=== PATIENT | female | born 1930 | race Caucasian/White ===

== ENCOUNTER 2018-11-16 07:48 | Inpatient (IN) | payer MEDICARE ==
[2018-11-16] MEDS ORDERED: methylPREDNISolone Sod Succ/PF 125 MG/2 ML VIAL ONE (08:24)
[2018-11-16 08:39] LABS: #Eosinphils 0.1 thou/uL (0.0-0.7); #Lymphocytes 0.7 thou/uL (1.20-3.40); #Monocytes 0.9 thou/uL (0.11-0.59); #Neutrophils 8.5 thou/uL (1.40-6.50); %Basophils 0.1 % (0.0-1.0); %Eosinophils 0.7 % (0.0-10.0); %Lymphocytes 7.2 % (21.0-51.0); %Neutrophils 83.1 % (42.0-75.0); Hemoglobin 16.5 g/dL (12.0-16.0); Mean Corpuscular HGB CONC 32.1 g/dL (32.0-36.0); Mean Corpuscular Hemoglobin 30.1 pg (27.0-31.0); Mean Corpuscular Volume 93.6 fL (78.0-98.0); Mean Platelet Volume 7.2 fL (7.4-10.4); Platelet Count 291 thou/uL (130-400); RBC Distribution Width 13.5 % (11.5-14.5); Red Blood Cell (RBC) Count 5.49 mill/uL (4.20-5.40); White Blood Cell (WBC) Count 10.3 thou/uL (4.8-10.8)
[2018-11-16 08:47] LABS: ALT (SGPT) 10 U/L (8-55); AST (SGOT) 18 U/L (5-34); Alkaline Phosphatase 89 U/L (40-150); Anion Gap 14 mmol/L (10-20); BUN (Urea Nitrogen) 22 mg/dL (9.8-20.1); Bilirubin, Total 0.6 mg/dL (0.2-1.2); Calc. Creatinine Clearance 0 mL/min (70-130); Calcium 11.7 mg/dL (7.8-10.44); Carbon Dioxide 26 mmol/L (23-31); Chloride 102 mmol/L (98-107); Estimated GFR-MDRD 36; Globulin 2.8 g/dL (2.4-3.5); Glucose 105 mg/dL (83-110); Potassium 3.9 mmol/L (3.5-5.1); Protein, Total 6.8 g/dL (6.0-8.3); Sodium 138 mmol/L (136-145)
[2018-11-16 09:13] LABS: CKMB 3.7 ng/mL (0-6.6)
--- NOTE | 2018-11-16 09:25 | CT ---
EXAM: CTA of the chest HISTORY: Shortness of breath COMPARISON: CT abdomen/pelvis 11/10/2018 TECHNIQUE: Multiple contiguous axial images were obtained a CTA of the chest with contrast per pulmon dot embolism protocol. 3-D oblique MIP reformats and direct coronal reformats were performed. FINDINGS: HEART: Normal in size without focal cardiac abnormality. PULMONARY ARTERIES: Normal in caliber without filling defects to suggest pulmonary emboli. MEDIASTINUM: There are calcified hilar and mediastinal lymph nodes. There is soft tissue density thro ughout the mediastinum which likely represents enlarged lymph nodes in the hilar regions and mediastinum. The lymph nodes are confluent in the subcarinal location LUNGS: No focal infiltrates or masses. PLEURAL SPACE: Moderate right small left pleural effusion. Right basilar atelectasis. CHEST WALL SOFT TISSUES: Unremarkable VISUALIZED OSSEOUS STRUCTURES: Degenerative changes in the spine. VISUALIZED SUBDIAPHRAGMATIC STRUCTURES: 4.0 cm cyst in the liver. Enlarged retroperitoneal lymph node s. IMPRESSION: 1. No evidence of pulmonary thromboembolism 2. Multiple enlarged hilar and mediastinal lymph nodes. This is concerning for lymphoma. 3. Bilateral pleural effusions, right greater than left.
[2018-11-16] MEDS ORDERED: Iopamidol 370 76% 50 ML VIAL FS ONE (11:00)
[2018-11-16 12:02] LABS: Troponin I 0.011 ng/mL (< 0.028)
[2018-11-16 14:25] LABS: Troponin I 0.018 ng/mL (< 0.028)
[2018-11-16] MEDS ORDERED: Ondansetron ODT 4 MG TAB SL PRN (14:26)
[2018-11-16] MEDS ORDERED: Ondansetron PF 4 MG/2 ML Vial IVP PRN (14:26)
[2018-11-16] MEDS ORDERED: Lidocaine 1% (PF) 30 ML VIAL ONE (16:25)
--- NOTE | 2018-11-16 16:46 | HP ---
CHIEF COMPLAINT: Shortness of breath and nonproductive cough. HISTORY OF PRESENT ILLNESS: The patient is an 88-year-old female, who was recently diagnosed with lymphoma by Dr. Valentine. Apparently, she went to his office yesterday. She was found to have hypercalcemia and was treated with IV fluids and Zometa, but her shortness of breath got worse and she decided to come to the emergency room for further evaluation and management. She was found to have bilateral pleural effusion and decision was made about hospitalization. Her cough is nonproductive. This is going on for approximately 2 to 3 weeks. She is short of breath. She has wheezing, though symptoms worse on exertion. She denied any fever or chills. She denied any nausea or vomiting. PAST MEDICAL HISTORY: Positive for, 1. Hypertension. 2. Lymphoma. PAST SURGICAL HISTORY: 1. Oral surgery. 2. Skin surgery. ALLERGIES: NONE. CURRENT MEDICATIONS: Amlodipine. FAMILY HISTORY: Father had some form of dementia and he was 85 when he passed and mother was 87. She did not have any significant health issues. SOCIAL HISTORY: She denies any alcohol intake, cigarette smoking, or use of any illicit drugs. REVIEW OF SYSTEMS: All 14 systems were reviewed and except for those symptoms which are mentioned in HPI rest is negative. PHYSICAL EXAMINATION: VITAL SIGNS: Blood pressure is 181/83, pulse is 92, temperature is 97.5, respirations 20, and O2 saturation is 93% on 3 L by nasal cannula. HEENT: Head is atraumatic and normocephalic. Eyes are PERRLA. Sclerae are nonicteric. Oral mucosa is somewhat dry. Conjunctivae are palish. NECK: Supple. LUNGS: Breath sounds significantly diminished at both bases with significant dullness, especially in the right base on percussion. HEART: S1, S2 normal. No S3. No S4. ABDOMEN: Soft, mildly distended, nontender. EXTREMITIES: No clubbing, cyanosis, or edema. NEUROLOGIC: She is alert and oriented x4. There are no any motor or sensory deficits present. Cranial nerves are intact. LABORATORY DATA: Labs showed white count of 10.3, hemoglobin 16.5, hematocrit 51.4, platelet count 291,000. Normal electrolytes. BUN of 22, creatinine 1.39, calcium 11.7. BNP is 193.4. Troponin I 0.011 and 0.018. Liver function tests within normal limits. EKG showed sinus tachycardia with a ventricular rate of 107, no ischemic changes. CT angiogram of the chest showed no evidence of PE. Multiple enlarged hilar and mediastinal lymph nodes. Bilateral pleural effusion, right greater than left. IMPRESSION: 1. Respiratory failure. The patient had pulse oximetry in the 80s when she presented to the emergency room on room air. She was placed on O2 3 L and she is now in the mid 90s on her pulse oximetry. Obviously, this is related to her bilateral pleural effusion, most likely related to her malignancy. 2. Hypercalcemia that is most likely related to her lymphoma. 3. Hypertension, uncontrolled. 4. Dehydration. 5. Renal insufficiency most likely prerenal secondary to hypercalcemia. PLAN: Full admission to tele. Condition is fair. Activity is bedrest and bathroom privileges. IV normal saline at 125 mL/hour. Consultation with Dr. Valentine, oncologist. Consultation with Dr. Caruso, urology physician assistant. Hydralazine p.r.n. for systolic blood pressure more than 160. Continue amlodipine. CBC and BMP in the morning with calcium level. O2 to continue 3 L by nasal cannula. DuoNeb p.r.n. every 4 hours as needed and DVT prophylaxis with SCDs and heparin. Job ID: [id number]
--- NOTE | 2018-11-16 17:02 | RAD ---
Chest one view HISTORY: Thoracentesis. FINDINGS: Cardiac silhouette is magnified, enlarged, and partially obscured by left pleural fluid. Ca lcification in the aorta. Minimal leftward shift of cardiac silhouette. Trachea remains midline. Right pleural fluid has decreased since the most recent exams. Right lung is partially collapsed. Ple ural line seen at the apex and the lower chest. IMPRESSION: Moderate right pneumothorax. Cardiomegaly and left pleural fluid appears stable. Findings were called to Dr. Caruso at 1655 hours. Code CR.
[2018-11-16] MEDS: Sodium Chloride 0.9% 1,000 ML IV SCH (17:24)
--- NOTE | 2018-11-16 17:29 | CON ---
DATE OF CONSULTATION: 11/16/2018 HISTORY OF PRESENT ILLNESS: Shalini Lowery is an 88-year-old female, who was brought to the hospital with shortness of breath several days duration. She has had a cough and difficulty breathing. She has lost some weight. Denies any chest pain, chills, or sweats. She has smoked. A recent diagnosis of lymphoma was made after she had extensive CAT scan imaging done. She has a local oncologist, but is unclear whether any treatment was initiated. She denies any prior history of TB, pneumonia, or bronchial asthma. In fact, she has been relatively healthy for most of her life. 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 PAST MEDICAL HISTORY: 1. Hypertension. 2. Recent diagnosis of lymphoma. PAST SURGICAL HISTORY: Otherwise, none. CHRONIC MEDICATION: Amlodipine 5. ALLERGIES: NONE. FAMILY HISTORY: Noncontributory. REVIEW OF SYSTEMS: 10-point negative. PHYSICAL EXAMINATION: GENERAL: Mild distress. VITAL SIGNS: Saturations are 93% on 3 L, temperature 97, pulse 92, . CHEST: She has dullness with decreased breath sounds . CARDIAC: Normal S1 and S2. No gallops. ABDOMEN: No masses. LABORATORY DATA: Creatinine is 1.39. BNP is 193, normal. White count is 10,000. IMPRESSION: 1. Bilateral pleural effusions, right massive. 2. Recent diagnosis of lymphoma, I made following imaging studies and blood work done. 3. Multiple enlarged hilar/mediastinal lymph nodes; bilateral pleural effusion, right greater than left. PLAN: Diagnostic thoracentesis to be done. Further treatment plan as per the oncologist. Consultation note, 70 minutes, 50% direct care exclusive of the thoracentesis. Job ID: [id number]
[2018-11-16 17:36] LABS: Pleural Fluid, Protein 2.9 g/dL
[2018-11-16] MEDS ORDERED: Amlodipine 5 MG TAB PO SCH (17:45)
[2018-11-16 19:51] LABS: BF Color Yellow; Body Fluid Source Thoracentesis Fluid; Clarity Cloudy/Turbid (Clear); Tube # 2; WBC/NonHematic-Auto 968 /cumm
[2018-11-16 19:52] LABS: BF RBC Count - Manual 850 /cumm
[2018-11-16 20:19] LABS: BF Segmented Neutrophils 5 %; Cell Count Non Hematic 21 %; Eosinophils 7 %; Lymphocytes 67 %
[2018-11-16] MEDS: Heparin 5,000 UNITS/ML VIAL SC SCH (22:30)
[2018-11-17] MEDS: hydrALAZINE 20 MG/ML VIAL SLOW IVP PRN (05:01)
[2018-11-17] MEDS: Sodium Chloride 0.9% 1,000 ML IV SCH ×4 (05:02→20:24)
[2018-11-17 06:00] LABS: #Lymphocytes 0.7 thou/uL (1.20-3.40); #Monocytes 1.7 thou/uL (0.11-0.59); #Neutrophils 15.7 thou/uL (1.40-6.50); %Eosinophils 0.2 % (0.0-10.0); %Lymphocytes 3.9 % (21.0-51.0); %Monocytes 9.1 % (0.0-10.0); %Neutrophils 86.8 % (42.0-75.0); Hemoglobin 14.5 g/dL (12.0-16.0); Mean Corpuscular HGB CONC 33.5 g/dL (32.0-36.0); Mean Corpuscular Hemoglobin 31.5 pg (27.0-31.0); Mean Platelet Volume 6.9 fL (7.4-10.4); Platelet Count 253 thou/uL (130-400); RBC Distribution Width 13.6 % (11.5-14.5); White Blood Cell (WBC) Count 18.1 thou/uL (4.8-10.8)
[2018-11-17 06:26] LABS: Anion Gap 10 mmol/L (10-20); BUN (Urea Nitrogen) 21 mg/dL (9.8-20.1); Calc. Creatinine Clearance 32 mL/min (70-130); Calcium 9.8 mg/dL (7.8-10.44); Carbon Dioxide 26 mmol/L (23-31); Chloride 106 mmol/L (98-107); Estimated GFR-MDRD 44; Glucose 80 mg/dL (83-110); Potassium 4.3 mmol/L (3.5-5.1); Sodium 138 mmol/L (136-145)
--- NOTE | 2018-11-17 07:51 | RAD ---
EXAM: Single view of the chest HISTORY: Status post thoracocentesis COMPARISON: 11/16/2018 FINDINGS: Single view of the chest shows an enlarged but stable cardiomediastinal silhouette. Athero sclerotic calcifications are seen in the aorta. There is a small right apical pneumothorax which is slightly decreased in size. There is reaccumulation of a small amount of right pleural fluid. The bon es are unremarkable. IMPRESSION: 1. Stable to slightly smaller right apical pneumothorax. 2. Reaccumulation of a small amount of right pleural effusion.
--- NOTE | 2018-11-17 08:59 | OP ---
DATE OF PROCEDURE: 11/16/2018 PROCEDURES PERFORMED: Thoracentesis. INDICATION FOR PROCEDURE: Pleural effusion. DESCRIPTION OF PROCEDURE: After informed consent, the right posterior thorax was cleaned with chlorhexidine and 1% Xylocaine was infiltrated in the right in the ninth intercostal space, midscapular line. To my surprise, there was no fluid obtained. A CAT scan showed a very large pleural effusion with extensive dullness. Thereafter, the tenth intercostal space in the midscapular line was infiltrated with lidocaine, but once again to my surprise, no fluid was obtained. 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 H1 catheter was inserted. Thereafter, a total of about 1200 mL of chylous fluid was removed without any difficulty. The patient otherwise tolerated the procedure well. She will be sent for appropriate studies including cytology and culture. Job ID: [id number]
--- NOTE | 2018-11-17 09:17 | PRG ---
DATE OF SERVICE: 11/17/2018 SUBJECTIVE: This morning, she is awake, alert, and responsive. She is complaining of some congestion in the chest. OBJECTIVE: VITAL SIGNS: Blood pressure 150/71, sats 96% on 2 L, pulse 18, temperature 98, and pulse 88. Chest x-ray shows small right pleural effusion. Small apical pneumothorax. CHEST: Decreased breath sounds bilaterally without any wheezing. CARDIAC: Normal S1 and S2. No gallop. ABDOMEN: No masses. LABORATORY DATA: White count 18,000. Creatinine is 1.7, improved. BNP 133. Bilateral pleural effusion, small apical pneumothorax, chylo thorax. IMPRESSION: Lymphoma, pleural effusion, underlying baseline chronic obstructive pulmonary disease. I am going to add Dulera neb treatments to her present regime. Continue supportive care, PT. Echo being ordered. Await input from Oncology. Job ID: [id number] MTDD
[2018-11-17] MEDS: Amlodipine 5 MG TAB PO SCH (10:06)
[2018-11-17] MEDS: Heparin 5,000 UNITS/ML VIAL SC SCH ×3 (11:10→20:24)
--- NOTE | 2018-11-17 12:38 | CON ---
DATE OF CONSULTATION: REASON FOR CONSULT: Lymphoma. HISTORY OF PRESENT ILLNESS: Ms. Lowery is a pleasant 88-year-old female with a history of COPD, tobacco abuse, hypertension, and polycythemia, who had a CT scan a week ago showed massive abdominal adenopathy in the periaortic and aortocaval regions consistent with non-Hodgkin's lymphoma. She also had a moderate bilateral pleural effusions. She was seen by Dr. Valentine on October 15 and was set up for a lymph node biopsy. On the , she began to have shortness of breath and a nonproductive cough, so came to the emergency room for evaluation. She had a massive right pleural effusion and had a therapeutic thoracentesis with 1200 mL of fluid removed, that has been sent for cytology. She is feeling much better with minimal shortness of breath. She does continue to have fatigue and has lost 20 pounds in the last eight months. No night sweats. When the patient was seen in the clinic on Wednesday, she did receive 4 mg of Zometa with 2 L of fluid for her hypercalcemia of 11.2. PAST MEDICAL HISTORY: 1. Newly diagnosed non-Hodgkin lymphoma. 2. COPD. 3. Hypertension. PAST SURGICAL HISTORY: Oral surgery. ALLERGIES: NONE. HOME MEDICATIONS: Amlodipine 5 mg daily. FAMILY HISTORY: Noncontributory. SOCIAL HISTORY: , has 2 children. Current everyday smoker with 73 pack-year history. REVIEW OF SYSTEMS: A 10-point review of systems is negative except for noted in HPI. PHYSICAL EXAMINATION: VITAL SIGNS: Temperature is 98.8, pulse is 89, respiratory rate is 18, BP is 152/68, and she is 94% on 3 L. GENERAL: This is a well-developed, well-nourished female, in no acute distress. HEENT: Normocephalic and atraumatic. Pupils are equal and reactive to light. NECK: Supple. CV: Regular rate and rhythm. LUNGS: Clear to auscultation. ABDOMEN: Soft and nontender. Bowel sounds are positive. She has a central abdominal mass. EXTREMITIES: No clubbing, cyanosis, or edema. SKIN: No rash. HEMATOLOGIC: No petechiae or purpura. LYMPH: She has shotty inguinal lymph node. NEUROLOGIC: Nonfocal. PSYCH: She is alert, oriented, and appropriate. PERTINENT LABS AND X-RAYS: Current WBCs are 18.1, hemoglobin 14.5, hematocrit 43.2, platelet count 253,000, 87% neutrophils, and 4% lymphocytes. Sodium is 138, potassium is 4.3, chloride is 106, CO2 is 26, BUN is 21, creatinine is 1.17, calcium is 9.8, bilirubin is 0.6, AST is 18, ALT is 10, and alkaline phosphatase is 89. Troponin is negative and BNP is 193. Serum total protein 6.9, albumin 4.0, and globulin 2.8. ASSESSMENT: 1. Newly diagnosed lymphoma. 2. Bilateral pleural effusion, status post right thoracentesis. 3. Hypercalcemia, resolved. DISCUSSION: The patient is scheduled for an inguinal lymph node biopsy tomorrow with Dr. Vasquez. Her pleural fluid has been sent for cytology. Further recommendations will be based on pathology results. If she improves well enough to go home, she can follow up in the outpatient setting for treatment recommendations. Case has been discussed with Dr. Valentine, he will follow and see the patient tomorrow. Thank you for the consult. Job ID: [id number]
--- NOTE | 2018-11-17 18:13 | PDOC.HOSPP ---
- Subjective Subjective: Doing ok. No complaints. Has some questions about the biopsy and the timing of the results. - Objective Vital Signs & Weight: Vital Signs (12 hours) Temp Pulse Resp BP BP Pulse Ox 11/17/18 15:34 97.8 F 100 16 146/73 H 92 L 11/17/18 14:18 94 16 92 L 11/17/18 11:52 98.2 F 89 18 152/68 H 94 L 11/17/18 10:24 95 11/17/18 10:22 98 16 94 L 11/17/18 10:06 88 150/71 H 11/17/18 08:00 96 11/17/18 07:40 98 F 88 18 150/71 H 96 Weight Weight 133 lb 4.8 oz I&O: 11/16/18 11/17/18 11/18/18 06:59 06:59 06:59 Output Total 600 Balance -600 Result Diagrams: 11/17/18 05:46 11/17/18 05:46 ROS - Review of Systems All systems: All other ROS were reviewed and found negative. - Medication Medications: Active Medications Generic Name Dose Route Start Last Admin Trade Name Freq PRN Reason Stop Dose Admin Albuterol/Ipratropium 3 ml 11/17/18 10:30 11/17/18 14:18 Duoneb NEB 3 ml [id number] POLY Administration Amlodipine Besylate 10 mg 11/17/18 09:00 11/17/18 10:06 Norvasc PO 10 mg DAILY POLY Administration Heparin Sodium (Porcine) 5,000 units 11/16/18 21:00 11/17/18 16:16 Heparin SC 5,000 units TID POLY Administration Hydralazine HCl 10 mg 11/16/18 17:23 11/17/18 05:01 Apresoline SLOW IVP 10 mg Q4H PRN Administration Hypertension Sodium Chloride 1,000 mls @ 50 mls/hr 11/17/18 08:57 11/17/18 10:12 Normal Saline 0.9% IV Not Given .Q20H POLY - Exam NAD, awake alert Neck: supple, symmetric, no JVD, no Thyromegaly, no lymphadenopathy, no carotid bruit Heart: RRR, no murmur, no gallops, no rubs, normal peripheral pulses Respiratory: CTAB, no wheezes, no rales, no ronchi, normal chest expansion, no tachypnea, normal percussion Gastrointestinal: soft, non-tender, non-distended, normal bowel sounds, no palpable masses, no hepatomegaly, no splenomegaly, no bruit Extremities: no cyanosis, no clubbing, no edema Skin: normal turgor, no lesions, no rashes Hosp A/P (1) Acute respiratory failure with hypoxia Code(s): J96.01 - ACUTE RESPIRATORY FAILURE WITH HYPOXIA Status: Acute (2) Pleural effusion Code(s): J90 - PLEURAL EFFUSION, NOT ELSEWHERE CLASSIFIED Status: Acute (3) Lymphoma Status: Acute (4) Hypercalcemia of malignancy Code(s): E83.52 - HYPERCALCEMIA Status: Acute - Plan Hypoxia resolved. S/P thoracentesis. Will get LN biopsy tomorrow to confirm the diagnosis and to stage the cancer. Will not need to stay in the hospital after bx. She thinks she may need to consider short stay somewhere prior to going home. hypercalcemia resolved.
[2018-11-17] MEDS: Mometasone/Formoterol 120 PUFF INHALER INH SCH (20:14)
--- NOTE | 2018-11-17 20:44 | CON ---
DATE OF CONSULTATION: HISTORY OF PRESENT ILLNESS: Shalini Lowery is an 88-year-old female admitted to the hospital on 11/16/2018 for complaints of malaise, weight loss of 20 to 30 pounds, dyspnea and nonproductive cough. She is noted to have bilateral pleural effusions and CTA performed revealed mediastinal and abdominal lymphadenopathy. Dr. Valentine has seen her and asked me to evaluate her for lymph node biopsy. Unfortunately, she does not have palpable cervical, axillary, or groin nodes, but does have firmness in her upper abdomen and bulky intraabdominal lymphadenopathy. Echocardiogram has been ordered. Plan is for laparoscopic lymph node biopsy. PAST MEDICAL HISTORY: Hypertension and lymphadenopathy. PAST SURGICAL HISTORY: None significant except for dental surgery. ALLERGIES: NONE. MEDICATIONS: Amlodipine. FAMILY HISTORY: Dementia. SOCIAL HISTORY: Alcohol use, none. Tobacco use, up until a few days ago. REVIEW OF SYSTEMS: Ten-point noncontributory. No chest pain. The patient has suffered weight loss and anorexia. She has had a thoracentesis in this hospitalization. Therapeutic thoracentesis 1200 mL. Echo pending. She has been noted to have hypercalcemia, is being treated for that. PHYSICAL EXAMINATION: VITAL SIGNS: Weight 133 pounds, 22 BMI, height 5 feet 4 inches. Temperature 98.2 degrees, pulse 89, and blood pressure 152/68. HEAD, EARS, EYES, NOSE, AND THROAT: Unremarkable. LUNGS: Clear to auscultation. CARDIAC: Rhythm without murmur or gallop. ABDOMEN: Soft. Firmness in her upper abdomen. EXTREMITIES: Unremarkable. Mild edema ankles. Palpable pulses radial. No lymphadenopathy at neck or groins. LABORATORY DATA: White count 18, hemoglobin 14. Sodium 138, BUN 21, creatinine 1.17, and glucose 44. ASSESSMENT AND PLAN: 1. Extensive lymphadenopathy, mediastinal, intraabdominal. No peripheral load noted in biopsy on the surface. We would recommend general anesthetic laparoscopic biopsy. Risks of infection, bleeding, reoperation, laparotomy discussed. She consents. 2. Tobacco abuse history. Job ID: [id number]
[2018-11-17 22:42] LABS: Lactic Acid 2.4 mmol/L (0.5-2.2)
[2018-11-17 22:44] LABS: Albumin 3.3 g/dL (3.4-4.8); Anion Gap 12 mmol/L (10-20); BUN (Urea Nitrogen) 21 mg/dL (9.8-20.1); Calc. Creatinine Clearance 32 mL/min (70-130); Calcium 9.6 mg/dL (7.8-10.44); Carbon Dioxide 25 mmol/L (23-31); Chloride 105 mmol/L (98-107); Estimated GFR-MDRD 44; Glucose 113 mg/dL (83-110); Magnesium 1.7 mg/dL (1.6-2.6); Potassium 4.1 mmol/L (3.5-5.1); Sodium 138 mmol/L (136-145)
[2018-11-18 05:26] LABS: ALT (SGPT) 9 U/L (8-55); AST (SGOT) 15 U/L (5-34); Albumin 3.3 g/dL (3.4-4.8); Alkaline Phosphatase 69 U/L (40-150); Anion Gap 12 mmol/L (10-20); BUN (Urea Nitrogen) 20 mg/dL (9.8-20.1); Bilirubin, Total 0.5 mg/dL (0.2-1.2); Calc. Creatinine Clearance 35 mL/min (70-130); Calcium 9.4 mg/dL (7.8-10.44); Carbon Dioxide 25 mmol/L (23-31); Chloride 107 mmol/L (98-107); Estimated GFR-MDRD 48; Globulin 2.2 g/dL (2.4-3.5); Glucose 94 mg/dL (83-110); Protein, Total 5.5 g/dL (6.0-8.3); Sodium 140 mmol/L (136-145)
[2018-11-18] MEDS: Sodium Chloride 0.9% 1,000 ML IV SCH ×2 (06:19→23:52)
[2018-11-18] MEDS: Mometasone/Formoterol 120 PUFF INHALER INH SCH ×2 (06:33→20:03)
[2018-11-18] MEDS: Heparin 5,000 UNITS/ML VIAL SC SCH ×2 (08:40→15:40)
[2018-11-18] MEDS: Amlodipine 5 MG TAB PO SCH (08:57)
--- NOTE | 2018-11-18 09:29 | PDOC.HOSPP ---
- Subjective Subjective: 88 y/o female with recent diagnosis of lymphoma associated with hypercalcemia treated with IVF and zommeta admitted due to worsening SOB and cough. Evaluation showed bilateral pleural effusion R>>L s/p thoracentesis which showed chylous exufdate. Also found to have mediastinal and abnormal lymphadenopathy. Patient is for Laparoscopy abdominal lymph node biopsy. SOB is better. No new problem - Objective Vital Signs & Weight: Vital Signs (12 hours) Temp Pulse Resp BP BP Pulse Ox 11/18/18 08:57 99 148/71 H 11/18/18 07:43 97.5 F L 99 18 148/71 H 92 L 11/18/18 06:37 95 11/18/18 06:36 94 16 95 11/18/18 06:33 94 18 95 11/18/18 04:00 97.8 F 98 20 143/77 H 94 L 11/18/18 01:32 93 L 11/18/18 00:00 97.4 F L 94 22 H 145/79 H 93 L Weight Weight 133 lb 4.8 oz I&O: 11/17/18 11/18/18 11/19/18 06:59 06:59 06:59 Intake Total 1985 Output Total 600 1200 Balance -600 785 Result Diagrams: 11/17/18 05:46 11/18/18 04:33 ROS - Review of Systems All systems: All other ROS were reviewed and found negative. - Medication Medications: Active Medications Generic Name Dose Route Start Last Admin Trade Name Freq PRN Reason Stop Dose Admin Albuterol/Ipratropium 3 ml 11/17/18 10:30 11/18/18 06:36 Duoneb NEB 3 ml [id number] POLY Administration Amlodipine Besylate 10 mg 11/17/18 09:00 11/18/18 08:57 Norvasc PO 10 mg DAILY POLY Administration Heparin Sodium (Porcine) 5,000 units 11/16/18 21:00 11/18/18 08:40 Heparin SC Not Given TID POLY Hydralazine HCl 10 mg 11/16/18 17:23 11/17/18 05:01 Apresoline SLOW IVP 10 mg Q4H PRN Administration Hypertension Sodium Chloride 1,000 mls @ 50 mls/hr 11/17/18 08:57 11/18/18 06:19 Normal Saline 0.9% IV Not Given .Q20H POLY Mometasone Furoate/Formoterol Fumar 2 puff 11/17/18 18:30 11/18/18 06:33 Dulera 200 Mcg/5 Mcg Inhaler INH 2 puff BID-RT POLY Administration - Exam NAD, awake alert Eye: PERRL, anicteric sclera ENT: normocephalic atraumatic, moist mucosa Neck: supple, symmetric, no JVD Heart: RRR Respiratory: no rales (Air entry is decreased at the bases but no respiratory distress) Gastrointestinal: soft, non-tender, non-distended, normal bowel sounds Extremities: no cyanosis, no clubbing, no edema Neurological: CN's grossly intact, normal sensation to touch Musculoskeletal: normal tone, normal strength, no muscle wasting Psychiatric: normal affect, normal behavior, A&O x 3 Hosp A/P (1) Acute respiratory failure with hypoxia Code(s): J96.01 - ACUTE RESPIRATORY FAILURE WITH HYPOXIA Status: Acute (2) Lymphadenopathy Code(s): R59.1 - GENERALIZED ENLARGED LYMPH NODES Status: Acute (3) HTN (hypertension) Code(s): I10 - ESSENTIAL (PRIMARY) HYPERTENSION Status: Acute (4) Hypercalcemia of malignancy Code(s): E83.52 - HYPERCALCEMIA Status: Acute (5) Lymphoma Status: Acute (6) Pleural effusion Code(s): J90 - PLEURAL EFFUSION, NOT ELSEWHERE CLASSIFIED Status: Acute - Plan Continue supportive care. Await Lymph node biopsy Monitor electrolytes and replete as needed. Hem/Onc following.
--- NOTE | 2018-11-18 10:07 | PRG ---
DATE OF SERVICE: 11/18/2018 SUBJECTIVE: This morning, the patient is better, less short of breath. OBJECTIVE: VITAL SIGNS: Saturations are 92% on 2 L, blood pressure 148/71, temperature 97, respirations 18. CHEST: Decreased breath sounds in the right lung. CARDIAC: Normal S1, S2. No gallops. ABDOMEN: soft _ evidence of mass. ASSESSMENT: 1. Right pleural effusion. 2. 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 3. Extensive adenopathy. 4. Inguinal node biopsy. PLAN: Pulmonary dexter continue supportive care. Cough has improved, probably secondary to pleural effusion and adenopathy. Await cytology of the pleural effusion. Job ID: [id number] [facility]
[2018-11-18] MEDS ORDERED: Bupivacaine HCl 0.5%/Epinephrine 1:200,000/PF 30 ml Vial ONE (12:35)
[2018-11-18] MEDS ORDERED: Fentanyl 100 MCG/2 ML VIAL ONE (12:48)
[2018-11-18] MEDS ORDERED: Famotidine/PF 20 mg/2ml Vial ONE (12:48)
[2018-11-18] MEDS ORDERED: ceFAZolin Sodium (SDC) 2 GM/100 ML BAG ONE (12:51)
--- NOTE | 2018-11-18 13:30 | PDOC.MOPN ---
Interval History: Pt feeling much better today after thoracentesis yesterday. Still feels SOB but improved. No other complaints. - Vital Signs Vital Signs: Vital Signs (12 hours) Temp Pulse Resp BP BP Pulse Ox 11/18/18 11:30 97.8 F 106 H 16 144/71 H 93 L 11/18/18 10:05 84 18 93 L 11/18/18 08:57 99 148/71 H 11/18/18 08:49 92 L 11/18/18 07:43 97.5 F L 99 18 148/71 H 92 L 11/18/18 06:37 95 11/18/18 06:36 94 16 95 11/18/18 06:33 94 18 95 11/18/18 04:00 97.8 F 98 20 143/77 H 94 L 11/18/18 01:32 93 L Weight Weight 133 lb 4.8 oz - Physical Exam General: Alert, Oriented x3, No acute distress HEENT: Atraumatic, PERRLA, EOMI, Mucous membr. moist/pink Lungs: Other (decreased BS in right mid-lower lung field; mild wheezing) Cardiovascular: Regular rate, Normal S1, Normal S2, No murmurs, Gallops, Rubs Abdomen: Normal bowel sounds, Soft, No tenderness, No hepatospenomegaly, No masses Extremities: No clubbing, No cyanosis, No edema, Normal pulses, No tenderness/ swelling Skin: No rashes, No breakdown, No significant lesion Neurological: Normal gait, Normal speech, Strength at 5/5 X4 ext, Normal tone, Sensation intact, Cranial nerves 3-12 NL, Reflexes 2+ Psych/Mental Status: Mental status NL, Mood NL - Labs Result Diagrams: 11/17/18 05:46 11/18/18 04:33 Lab results: Laboratory Results - last 24 hr 11/18/18 04:33: Sodium 140, Potassium 4.0, Chloride 107, Carbon Dioxide 25, Anion Gap 12, BUN 20, Creatinine 1.07, Estimated GFR (MDRD) 48, Glucose 94, Calcium 9.4, Total Bilirubin 0.5, AST 15, ALT 9, Alkaline Phosphatase 69, Serum Total Protein 5.5 L, Albumin 3.3 L, Globulin 2.2 L, Albumin/Globulin Ratio 1.5 11/17/18 22:18: Procalcitonin 0.07 11/17/18 22:18: Lactic Acid 2.4 H 11/17/18 22:18: Calcium 9.6 11/17/18 22:12: Sodium 138, Potassium 4.1, Chloride 105, Carbon Dioxide 25, Anion Gap 12, BUN 21 H, Creatinine 1.16 H, Estimated GFR (MDRD) 44, BUN/ Creatinine Ratio 18.10, Glucose 113 H, Calcium 9.6, Phosphorus 2.0 L, Magnesium 1.7, Albumin 3.3 L 11/16/18 16:45: Fluid Diff Path Review - Pathology Pathology: Pleural Fluid - CD10+ B-cells, 30% small to medium sized A/P - Problem (1) Non-Hodgkin lymphoma Current Visit: Yes Code(s): C85.90 - NON-HODGKIN LYMPHOMA, UNSPECIFIED, UNSPECIFIED SITE Status: Acute - Plan Plan: Pleural fluid positive for CD10+, CD20+ B-cells. Diffuse adenopathy pending biopsy today. Hypercalcemia 2/2 lymphoma, now resolved. LN biopsy today by Dr. Vasquez - f/u path monitor calcium levels pleural effusion mgmt as per Dr. Caruso physical therapy consult
[2018-11-18] MEDS ORDERED: Ondansetron HCl/PF 4 MG/2 ML Vial IVP PRN (13:42)
[2018-11-18] MEDS ORDERED: Acetaminophen 500 MG TAB PO PRN (13:56)
[2018-11-18] MEDS ORDERED: traMADol HCl 50 MG TAB PO PRN (13:56)
[2018-11-18] MEDS ORDERED: PROPOFOL 200 MG/20 ML VIAL ONE (14:04)
[2018-11-18] MEDS ORDERED: PHENYLEPHRINE-NS 100 MCG/ML 10 ML SYRINGE ONE (14:04)
[2018-11-18] MEDS ORDERED: PROVENTIL INHALER 6.7 G (200 INHALATIONS) ONE (14:04)
[2018-11-18] MEDS ORDERED: Ketorolac Tromethamine 30 MG/ML VIAL ONE (14:04)
[2018-11-18] MEDS ORDERED: Glycopyrrolate 0.2 MG/ML 5 ML SYRINGE ONE (14:04)
[2018-11-18] MEDS ORDERED: Ondansetron PF 4 MG/2 ML Vial ONE (14:04)
[2018-11-18] MEDS ORDERED: Rocuronium Bromide 10 MG/ML (10ML VIAL) ONE (14:04)
[2018-11-18] MEDS ORDERED: Lidocaine 1% PF 5 ML VIAL ONE (14:04)
[2018-11-18] MEDS ORDERED: SUGAMMADEX SODIUM 200 MG/2 ML VIAL ONE (14:04)
[2018-11-18] MEDS ORDERED: CEFAZOLIN 2 GM, IV Admixture Fee-Chemo 1 UNITS in Sodium Chloride 0.9% 100 ML IVPB SCH (16:00)
--- NOTE | 2018-11-18 19:50 | OP ---
DATE OF PROCEDURE: 11/18/2018 PREOPERATIVE DIAGNOSIS: Lymphadenopathy. POSTOPERATIVE DIAGNOSIS: Lymphadenopathy. PROCEDURE PERFORMED: Laparoscopic lymph node biopsy, retroperitoneal. ANESTHESIA: General, local, 0.5% Marcaine with epinephrine. FINDINGS: The patient has palpable abdominal lymphadenopathy on abdominal exam laparoscopically. She had bulky central retroperitoneal lymphadenopathy. A significant lymph node was removed. DESCRIPTION OF PROCEDURE: The patient was taken to the operating room, under general anesthesia, abdomen was prepared with ChloraPrep and draped in routine fashion. Left lateral, far lateral incision was made. Pneumoperitoneum to 15 mmHg was obtained with a Veress needle, replaced with a 5 port, video laparoscope was inserted. The balance of the ports placed under laparoscopic visualization. Left lateral midabdominal incision was made for an 11 mm port. Left lower quadrant lateral incision was made and a 5 port placed. The patient had bulky lymphadenopathy as the omentum and transverse colon reflected cephalad. There was bulky lymphadenopathy and small bowel mesentery. Of significant note, 4 cm in diameter was dissected free using the LigaSure for hemostasis, node recovered, placed in endobag, submitted to pathology fresh for lymph node protocol. The patient tolerated the procedure well. Good hemostasis was noted. Pneumoperitoneum was evacuated. All instruments were removed. All skin incisions were approximated with interrupted subdermal 4-0 Monocryl and [place] glue was applied. Job ID: [id number]
[2018-11-18] MEDS: Enoxaparin Sodium 40 MG/0.4 ML SYRINGE SC SCH (20:19)
[2018-11-19] MEDS: Mometasone/Formoterol 120 PUFF INHALER INH SCH ×2 (06:58→19:01)
--- NOTE | 2018-11-19 08:27 | RAD ---
CHEST 1 VIEW: Date: 11/19/18 INDICATION: Pleural effusions. COMPARISON: Prior exam dated 11/17/18. FINDINGS: There is cardiomegaly, pulmonary vascular congestion, and bilateral pleural effusions. No pneumothora x is evident. No acute osseous abnormality is noted. The right apical pneumothorax is unchanged. IMPRESSION: 1. Stable exam. 2. Stable small right apical pneumothorax. 3. Stable cardiomegaly, pulmonary vascular congestion, central edema pattern, and bilateral pleural effusions, suspicious for volume overload or CHF. POS: [facility]
[2018-11-19] MEDS: Polyethylene Glycol 3350 17 GM Packet PO SCH (08:38)
[2018-11-19] MEDS: Amlodipine 5 MG TAB PO SCH (08:38)
--- NOTE | 2018-11-19 12:31 | PRG ---
DATE OF SERVICE: 11/19/2018 SUBJECTIVE: This morning, she says she is somewhat better, less short of breath. X-ray still shows bilateral pleural effusion. Unfortunately, the right pleural effusion is reaccumulating, still has apical pneumothorax. OBJECTIVE: VITAL SIGNS: Saturations are 94%, pulse 70, respirations 18, and blood pressure . CHEST: Decreased breath sounds bilaterally. CARDIAC: Normal S1 and S2. No gallops. ABDOMEN: No mass. LABORATORY DATA: Pleural effusion cytology is positive for lymphoma. IMPRESSION: 1. Non-Hodgkin lymphoma. 2. Bilateral pleural effusion. 3. 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 PLAN: Disposition as per Oncology. More than likely, the pleural effusion is going to slowly reaccumulate, she may have dyspnea. At that time, consider putting a pleural catheter for drainage purposes. We will discuss and follow. Job ID: [id number]
--- NOTE | 2018-11-19 17:10 | PDOC.HOSPP ---
- Subjective Subjective: Ms. Lowery was seen today in follow-up of Lymphoma and malignant effusion. She does not have any new complaints today. She denies dyspnea, or abdominal pain. - Objective Vital Signs & Weight: Vital Signs (12 hours) Temp Pulse Pulse Pulse Resp BP BP 11/19/18 15:59 98.4 F 95 20 11/19/18 14:23 85 18 11/19/18 12:00 97.7 F 104 H 20 11/19/18 10:41 93 20 11/19/18 10:09 11/19/18 09:27 136/78 180/79 H 11/19/18 08:50 106 H 114 H 174/79 H 183/105 H 11/19/18 08:38 100 11/19/18 07:38 97.5 F L 100 20 11/19/18 07:02 11/19/18 07:01 80 18 11/19/18 06:58 80 16 BP Pulse Ox 11/19/18 15:59 139/61 89 L 11/19/18 14:23 91 L 11/19/18 12:00 132/70 90 L 11/19/18 10:41 92 L 11/19/18 10:09 148/72 H 11/19/18 09:27 11/19/18 08:50 11/19/18 08:38 92 L 11/19/18 07:38 129/75 92 L 11/19/18 07:02 94 L 11/19/18 07:01 94 L 11/19/18 06:58 94 L Weight Weight 133 lb 4.8 oz I&O: 11/18/18 11/19/18 11/20/18 06:59 06:59 06:59 Intake Total 1985 1265 Output Total 1200 300 Balance 785 965 Result Diagrams: 11/17/18 05:46 11/18/18 04:33 ROS - Review of Systems All systems: All other ROS were reviewed and found negative. - Medication Medications: Active Medications Generic Name Dose Route Start Last Admin Trade Name Freq PRN Reason Stop Dose Admin Albuterol/Ipratropium 3 ml 11/17/18 10:30 11/19/18 14:23 Duoneb NEB 3 ml [id number] POLY Administration Amlodipine Besylate 10 mg 11/17/18 09:00 11/19/18 08:38 Norvasc PO 10 mg DAILY POLY Administration Enoxaparin Sodium 40 mg 11/18/18 21:00 11/18/18 20:19 Lovenox SC 40 mg 2100 POLY Administration Hydralazine HCl 10 mg 11/16/18 17:23 11/17/18 05:01 Apresoline SLOW IVP 10 mg Q4H PRN Administration Hypertension Sodium Chloride 1,000 mls @ 50 mls/hr 11/17/18 08:57 11/18/18 23:52 Normal Saline 0.9% IV 1,000 mls .Q20H POLY Administration Mometasone Furoate/Formoterol Fumar 2 puff 11/17/18 18:30 11/19/18 06:58 Dulera 200 Mcg/5 Mcg Inhaler INH 2 puff BID-RT POLY Administration Polyethylene Glycol 17 gm 11/19/18 09:00 11/19/18 08:38 Miralax PO 17 gm DAILY POLY Administration - Exam Eye: PERRL, anicteric sclera ENT: normocephalic atraumatic, no oropharyngeal lesions Neck: supple, symmetric, no JVD, no Thyromegaly, no lymphadenopathy, no carotid bruit Heart: RRR, no murmur, no gallops (decreased breath sounds at both bases) Gastrointestinal: soft, non-tender, non-distended, normal bowel sounds Extremities: no cyanosis, no clubbing, 1+ LE edema (in both lower extremities) Hosp A/P (1) Pleural effusion Code(s): J90 - PLEURAL EFFUSION, NOT ELSEWHERE CLASSIFIED Status: Acute (2) Acute respiratory failure with hypoxia Code(s): J96.01 - ACUTE RESPIRATORY FAILURE WITH HYPOXIA Status: Acute (3) HTN (hypertension) Code(s): I10 - ESSENTIAL (PRIMARY) HYPERTENSION Status: Acute (4) Hypercalcemia of malignancy Code(s): E83.52 - HYPERCALCEMIA Status: Acute (5) Non-Hodgkin lymphoma Code(s): C85.90 - NON-HODGKIN LYMPHOMA, UNSPECIFIED, UNSPECIFIED SITE Status: Acute - Plan * Malignant Pleural Effusion- patient had the removal of over I liter of fluid. She is symptomatically improved * Awaiting the path report * Hypercalcemia- improved * HTN- blood pressure is stable
[2018-11-19] MEDS: Sodium Chloride 0.9% 1,000 ML IV SCH (19:16)
[2018-11-19] MEDS: Enoxaparin Sodium 40 MG/0.4 ML SYRINGE SC SCH (20:02)
[2018-11-20] MEDS: Mometasone/Formoterol 120 PUFF INHALER INH SCH ×2 (07:14→18:20)
[2018-11-20] MEDS: Amlodipine 5 MG TAB PO SCH (09:01)
[2018-11-20] MEDS: Polyethylene Glycol 3350 17 GM Packet PO SCH (09:01)
[2018-11-20] MEDS ORDERED: methylPREDNISolone Sod Succ/PF 125 MG/2 ML VIAL IVP SCH (10:30)
--- NOTE | 2018-11-20 10:42 | PRG ---
DATE OF SERVICE: 11/20/2018 SUBJECTIVE: Shalini Lowery this morning is awake, alert, and responsive. She has a more difficulty breathing. She is wheezing this morning which she has not done before. OBJECTIVE: VITAL SIGNS: Temperature 97, pulse 93, respiratory rate 24, blood pressure 176/79. CHEST: Decreased breath sounds. Bilateral wheezing. CARDIAC: Sinus tachycardia. ABDOMEN: Soft. IMPRESSION: 1. 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 3. Respiratory failure. PLAN: I am ordering a stat chest x-ray and adding steroids, neb treatments, and Pulmicort. She may very well need a pleural catheter for long-term drainage until medication starts working. Job ID: [id number]
[2018-11-20] MEDS ORDERED: methylPREDNISolone Sod Succ 40 MG VIAL IVP SCH (10:45)
[2018-11-20 10:55] LABS: Anion Gap 12 mmol/L (10-20); BUN (Urea Nitrogen) 22 mg/dL (9.8-20.1); Calc. Creatinine Clearance 41 mL/min (70-130); Calcium 9.1 mg/dL (7.8-10.44); Carbon Dioxide 23 mmol/L (23-31); Chloride 108 mmol/L (98-107); Estimated GFR-MDRD 59; Glucose 111 mg/dL (83-110); Magnesium 1.9 mg/dL (1.6-2.6); Sodium 139 mmol/L (136-145)
--- NOTE | 2018-11-20 10:55 | PDOC.HOSPP ---
- Subjective Subjective: Ms. Lowery was seen today in follow-up of respiratory failure. She says this morning she is having difficulty breathing. She continues to feel weak. - Objective Vital Signs & Weight: Vital Signs (12 hours) Temp Pulse Resp BP Pulse Ox 11/20/18 10:09 93 16 11/20/18 09:01 93 11/20/18 08:00 97.5 F L 93 24 H 176/79 H 96 11/20/18 07:14 104 H 20 11/20/18 07:03 94 L 11/20/18 07:02 104 H 20 11/20/18 04:07 98.8 F 103 H 20 158/76 H 92 L 11/20/18 02:25 90 20 92 L 11/20/18 00:00 97.3 F L 93 20 149/80 H 93 L Weight Weight 133 lb 4.8 oz I&O: 11/19/18 11/20/18 11/21/18 06:59 06:59 06:59 Intake Total 1265 2719 Output Total 300 400 Balance 965 4469 Result Diagrams: 11/17/18 05:46 11/18/18 04:33 ROS - Review of Systems All systems: All other ROS were reviewed and found negative. - Medication Medications: Active Medications Generic Name Dose Route Start Last Admin Trade Name Freq PRN Reason Stop Dose Admin Albuterol/Ipratropium 3 ml 11/17/18 10:30 11/20/18 10:09 Duoneb NEB 3 ml [id number] POLY Administration Amlodipine Besylate 10 mg 11/17/18 09:00 11/20/18 09:01 Norvasc PO 10 mg DAILY POLY Administration Enoxaparin Sodium 40 mg 11/18/18 21:00 11/19/18 20:02 Lovenox SC 40 mg 2100 POLY Administration Hydralazine HCl 10 mg 11/16/18 17:23 11/17/18 05:01 Apresoline SLOW IVP 10 mg Q4H PRN Administration Hypertension Sodium Chloride 1,000 mls @ 50 mls/hr 11/17/18 08:57 11/19/18 19:16 Normal Saline 0.9% IV 1,000 mls .Q20H POLY Administration Mometasone Furoate/Formoterol Fumar 2 puff 11/17/18 18:30 11/20/18 07:14 Dulera 200 Mcg/5 Mcg Inhaler INH 2 puff BID-RT POLY Administration Polyethylene Glycol 17 gm 11/19/18 09:00 11/20/18 09:01 Miralax PO 17 gm DAILY POLY Administration - Exam Eye: PERRL, anicteric sclera ENT: normocephalic atraumatic, no oropharyngeal lesions Heart: RRR, no murmur, no gallops, no rubs Respiratory: wheezes (+ faint wheezing bilaterally, and decreased breath sounds at both bases) Gastrointestinal: soft, non-tender, non-distended, normal bowel sounds, no palpable masses Extremities: no cyanosis, no clubbing, 1+ LE edema (edema in both lwer extremities, no erythema or warmth) Psychiatric: normal behavior, A&O x 3 Hosp A/P (1) Pleural effusion Code(s): J90 - PLEURAL EFFUSION, NOT ELSEWHERE CLASSIFIED Status: Acute (2) Acute respiratory failure with hypoxia Code(s): J96.01 - ACUTE RESPIRATORY FAILURE WITH HYPOXIA Status: Acute (3) HTN (hypertension) Code(s): I10 - ESSENTIAL (PRIMARY) HYPERTENSION Status: Acute (4) Hypercalcemia of malignancy Code(s): E83.52 - HYPERCALCEMIA Status: Acute (5) Non-Hodgkin lymphoma Code(s): C85.90 - NON-HODGKIN LYMPHOMA, UNSPECIFIED, UNSPECIFIED SITE Status: Acute - Plan * Malignant Pleural Effusion with Acute hypoxic respiratory failure- Patient has become more short of breath, and the fluid as re-accumulated. Discussed with Dr. Caruso * He plans to perform a therapeutic thorocentesis, and consult Vascular Surgery for possible pleurX catheter * Abdominal adenopathy- still awaiting the pathology results * Hypercalcemia- improved * HTN- blood pressure is elevated, but this may be due to anxiety from dyspnea. continue Amlodipine, as well as hydralazine as needed
--- NOTE | 2018-11-20 11:24 | RAD ---
PORTABLE CHEST 1 VIEW: Date: 11/20/18 Time: 1019 hours HISTORY: Pleural effusions. FINDINGS: Comparison made with exam of previous day. The small right apical pneumothorax is again seen. The heart size is enlarged. The aorta is tortuous. Bilateral pleural effusions, right greater than left, are again seen. IMPRESSION: Stable exam. POS: [facility]
[2018-11-20] MEDS: methylPREDNISolone Sod Succ 40 MG VIAL IVP SCH ×3 (11:43→23:34)
[2018-11-20] MEDS: Sodium Chloride 0.9% 1,000 ML IV SCH (11:43)
--- NOTE | 2018-11-20 11:52 | PRG ---
DATE OF SERVICE: 11/20/2018 SUBJECTIVE: Shalini Lowery was having difficulty with her breathing. This morning, x-ray showed recurrent pleural effusion. Therefore, it was felt, she need to be tapped again. After informed consent, the right posterior thorax was cleaned with chlorhexidine and 1% Xylocaine was infiltrated into the tenth intercostal space, left posterior axillary line and the pleural cavity entered in and 20 mL of opaque, colorless fluid was drained. Thereafter, used 8-[place] catheter, a total of a liter of fluid was drained without any difficulty. No culture or cytology was ordered, she just underwent a procedure not long ago. I will be consulting CV Surgery for insertion of a Pleurx catheter for pulmonary drainage. Since, she has rather rapid reaccumulation of pleural effusion. Job ID: [id number]
--- NOTE | 2018-11-20 12:22 | RAD ---
PORTABLE CHEST 1 VIEW: Date: 11/20/18 Time: 1118 hours HISTORY: Pleural effusion, right thoracentesis. FINDINGS/IMPRESSION: The small right apical pneumothorax noted on the previous exam at 1018 hours from the same date is sl ightly larger. There has been interval improvement in the right pleural effusion. The remainder of th e exam is stable. POS: [facility]
--- NOTE | 2018-11-20 13:28 | CON ---
DATE OF CONSULTATION: HISTORY OF PRESENT ILLNESS: This is an 88-year-old female who I was asked to see in regard to placement of a right-sided PleurX catheter. The patient was admitted to the hospital recently after having been given a diagnosis of some sort of lymphoma with a biopsy to come. She had significant worsening of fatigue and shortness of breath and underwent a thoracentesis on the right for bilateral pleural effusions with removal of about 1200 mL with symptomatic improvement. That was performed by Dr. Caruso on 11/16. This morning, she was again short of breath such that she had difficulty talking and he withdrew another 1000 mL with some improvement. Her postprocedure chest x-ray did show a partial pneumothorax. While in this hospital, she has also undergone a laparoscopic retroperitoneal lymph node biopsy by Dr. Vasquez and the results of this were pending with the procedure having been done on 11/18. PAST MEDICAL HISTORY: Includes hypertension. PAST SURGICAL HISTORY: No significant surgical procedures per the patient. SOCIAL HISTORY: She lives in [place] with her . She does have 2 children. PHYSICAL EXAMINATION: GENERAL: On examination, she is an elderly lady, alert, cooperative. VITAL SIGNS: Recorded height 5 feet 4 inches, weight 133. LUNGS: She does have clear lung sounds anteriorly bilaterally with slightly diminished breath sounds on the right, but no wheezes or rhonchi. CARDIAC: Distant heart sounds. No murmurs. NECK: No adenopathy. No bruits. ABDOMEN: Slightly protuberant, nontender. Bowel sounds present. EXTREMITIES: She has no peripheral edema with palpable pedal pulses in both feet. PLAN: We will repeat her chest x-ray tomorrow and assuming there is some effusion, we will plan on a right-sided PleurX catheter, and either her will take care of draining this at home or we will need to involve Home Health to do this. Informed consent has been obtained. Job ID: [id number]
--- NOTE | 2018-11-20 14:01 | CON ---
DATE OF CONSULTATION: 11/20/2018 REASON FOR CONSULTATION: The patient with recurrent right malignant pleural effusion-lymphoma. HISTORY OF PRESENT ILLNESS: Ms. Lowery is a very pleasant 88-year-old woman, who was admitted with shortness of breath. She had a CT scan, which showed extensive adenopathy and has had a laparoscopic node biopsy. She had a large right pleural effusion, which has now been tapped twice, which has shown lymphoid cells consistent with lymphoma. She became more short of breath this morning and Dr. Caruso did a thoracentesis and evacuated another 1200 mL of fluid from her right chest. He has asked us to see her to place a PleurX catheter. PAST MEDICAL HISTORY: 1. Hypertension. 2. Recent diagnosis of lymphoma. PAST SURGICAL HISTORY: 1. Laparoscopic node biopsy. 2. Oral surgery. SOCIAL HISTORY: She does not use tobacco or alcohol. REVIEW OF SYSTEMS: Not performed due to the patient being post thoracentesis and still with some shortness of breath. PHYSICAL EXAMINATION: GENERAL: This is an elderly woman, sitting upright, leaning over a bedside table. VITAL SIGNS: Height is 5 feet 4 inches, weight is 133 pounds, pulse is 93 and regular, blood pressure is 176/79. LUNGS: Diminished breath sounds throughout both bases, but are clear at the apices. HEART: Rhythm is regular. ABDOMEN: Soft. EXTREMITIES: There is no significant edema. LABORATORY DATA: Of note, hemoglobin is 14.5, platelet count is 253,000. Creatinine is 0.9, potassium is 4.0. 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 We have been asked to place a PleurX catheter. I have discussed this with her and she feels like she or her family can handle this management at home or in the rehab/jail facility. We will make plans for tomorrow. Job ID: [id number]
[2018-11-20] MEDS ORDERED: Budesonide 0.5 MG/2 ML NEB ONE (18:13)
[2018-11-20] MEDS ORDERED: Mometasone/Formoterol 120 PUFF INHALER ONE (18:14)
[2018-11-20] MEDS: Budesonide 0.5 MG/2 ML NEB INH SCH (18:19)
[2018-11-20 21:48] LABS: #Lymphocytes 0.2 thou/uL (1.20-3.40); #Monocytes 0.2 thou/uL (0.11-0.59); #Neutrophils 11.3 thou/uL (1.40-6.50); %Eosinophils 0.1 % (0.0-10.0); %Lymphocytes 1.4 % (21.0-51.0); %Monocytes 1.8 % (0.0-10.0); %Neutrophils 96.6 % (42.0-75.0); Hemoglobin 14.1 g/dL (12.0-16.0); Mean Corpuscular HGB CONC 33.4 g/dL (32.0-36.0); Mean Corpuscular Hemoglobin 31.6 pg (27.0-31.0); Mean Corpuscular Volume 94.8 fL (78.0-98.0); Mean Platelet Volume 7.1 fL (7.4-10.4); Platelet Count 255 thou/uL (130-400); RBC Distribution Width 13.9 % (11.5-14.5); Red Blood Cell (RBC) Count 4.44 mill/uL (4.20-5.40); White Blood Cell (WBC) Count 11.7 thou/uL (4.8-10.8)
[2018-11-20 22:04] LABS: Lactic Acid 1.4 mmol/L (0.5-2.2)
[2018-11-20 22:09] LABS: CK (CPK) 60 U/L (29-168); Magnesium 1.8 mg/dL (1.6-2.6); Potassium 4.5 mmol/L (3.5-5.1)
[2018-11-20] MEDS ORDERED: Bisacodyl 10 MG SUPP PR PRN (23:24)
[2018-11-21] MEDS: methylPREDNISolone Sod Succ 40 MG VIAL IVP SCH ×3 (05:50→19:30)
[2018-11-21] MEDS: Sodium Chloride 0.9% 1,000 ML IV SCH (05:58)
[2018-11-21] MEDS: Budesonide 0.5 MG/2 ML NEB INH SCH ×2 (06:08→18:30)
[2018-11-21] MEDS: Mometasone/Formoterol 120 PUFF INHALER INH SCH ×2 (06:26→18:32)
--- NOTE | 2018-11-21 07:42 | RAD ---
EXAM: Single view of the chest HISTORY: Pleural effusion COMPARISON: 11/20/2018 FINDINGS: Single view of the chest shows a normal sized cardiomediastinal silhouette. There are smal l bilateral pleural effusions. There is a persistent small right apical pneumothorax. The bones are unremarkable. IMPRESSION: 1. Bilateral pleural effusions 2. Small persistent right apical pneumothorax
--- NOTE | 2018-11-21 09:57 | PRG ---
DATE OF SERVICE: 11/21/2018 SUBJECTIVE: This morning, the patient is better. She is less short of breath. She is going to have a pleural catheter inserted today for recurrent pleural effusion. OBJECTIVE: Temperature 97, pulse 101, respirations 20, sats 90% on room air, blood pressure 133/69. CHEST: Decreased breath sounds bilaterally. CARDIAC: Normal S1 and S2. No gallop. ABDOMEN: No masses. LABORATORY DATA: Lytes are normal. H and H unremarkable. IMPRESSION: Lymphoma, recurrent right pleural effusion. Pleural catheter today. Disposition as per Oncology. Job ID: [id number]
[2018-11-21] MEDS ORDERED: Heparin 5,000 UNITS/ML VIAL ONE (11:17)
[2018-11-21] MEDS ORDERED: Protamine Sulfate 50 MG/5 ML VIAL ONE (11:17)
[2018-11-21] MEDS ORDERED: CEFAZOLIN 2 GM, IV Admixture Fee-Chemo 1 UNITS in Sodium Chloride 0.9% 100 ML IVPB SCH (12:00)
[2018-11-21] MEDS ORDERED: ceFAZolin Sodium (SDC) 2 GM/100 ML BAG ONE (13:10)
[2018-11-21] MEDS ORDERED: Ketamine 50 MG/ML (10ML VIAL) ONE (13:52)
[2018-11-21] MEDS ORDERED: Bupivacaine HCl 0.5%/Epinephrine 1:200,000/PF 30 ml Vial ONE (14:03)
[2018-11-21] MEDS ORDERED: Midazolam HCl 2 mg/2 ml Vial ONE (14:07)
[2018-11-21] MEDS ORDERED: Fentanyl 100 MCG/2 ML VIAL ONE (14:07)
[2018-11-21] MEDS ORDERED: Promethazine HCl 25 MG/ML VIAL SLOW IVP PRN (14:47)
[2018-11-21] MEDS ORDERED: HYDROmorphone 2 MG/ML VIAL SLOW IVP PRN (14:47)
[2018-11-21] MEDS ORDERED: Morphine Sulfate 2 MG/ML SYRINGE SLOW IVP PRN (14:47)
[2018-11-21] MEDS ORDERED: Ondansetron HCl/PF 4 MG/2 ML Vial IVP PRN (14:47)
[2018-11-21] MEDS ORDERED: PACU-Morphine 4MG/ML VIAL SLOW IVP PRN (14:47)
[2018-11-21] MEDS ORDERED: Promethazine HCl 25 MG/ML VIAL IM PRN (14:47)
--- NOTE | 2018-11-21 15:40 | RAD ---
PORTABLE CHEST 1 VIEW: Date: 11/21/18 HISTORY: Pneumothorax. FINDINGS/IMPRESSION: Interval placement of a right-sided chest tube is seen since earlier exam at 0521 hours, with improve ment in the right pleural effusion, and aeration of the right lung. No definite pneumothorax is seen. The heart is enlarged. The aorta is tortuous. Left pleural effusion with adjacent atelectasis/consoli dation is again seen. POS: [facility]
--- NOTE | 2018-11-21 15:47 | OP ---
DATE OF PROCEDURE: 11/21/2018 PREOPERATIVE DIAGNOSIS: Malignant right pleural effusion, recurrent. PROCEDURE PERFORMED: Right PleurX catheter. ANESTHESIA: Sedation with local. DESCRIPTION OF PROCEDURE: After adequate anesthesia had been obtained with sedation, the patient was prepped and draped. 1% lidocaine was used to infiltrate the skin. A needle inserted in the chest cavity and air was aspirated. The patient did have a known pneumothorax. Angiocath was placed and a J-wire was easily passed with no resistance. Following this, a tunnel was created and the PleurX catheter was brought through this tunnel. The peel-away sheath was then introduced without any difficulty and the catheter was introduced through the peel-away sheath, which was removed. Following this, about 700 to 800 mL of clear fluid and air were removed from the chest cavity. Wounds were then secured with suture and dressed and the patient is to be taken to the recovery room. Job ID: [id number]
--- NOTE | 2018-11-21 15:56 | PDOC.HOSPP ---
- Subjective Subjective: I attempted to see Ms. Lowery twice today. She is having the PleurX catheter placed.I was able to see Ms. Lowery today at approximately 19:20. She is looking quite well. She is breathing comfortably. She notes a little soreness in her chest when she takes in a deep breath, otherwise ok. - Objective Vital Signs & Weight: Vital Signs (12 hours) Temp Pulse Resp BP Pulse Ox 11/21/18 11:33 97.9 F 101 H 18 149/70 H 95 11/21/18 11:05 101 H 16 11/21/18 10:01 95 11/21/18 07:51 97.9 F 101 H 20 133/69 95 11/21/18 06:26 99 24 H 11/21/18 06:12 97 11/21/18 06:08 99 24 H 11/21/18 04:00 97.9 F 100 18 138/77 94 L Weight Weight 133 lb 4.8 oz I&O: 11/20/18 11/21/18 11/22/18 06:59 06:59 06:59 Intake Total 2719 1200 Output Total 400 1900 Balance 2319 -700 Result Diagrams: 11/20/18 21:41 11/20/18 21:41 ROS - Review of Systems All systems: All other ROS were reviewed and found negative. - Medication Medications: Active Medications Generic Name Dose Route Start Last Admin Trade Name Freq PRN Reason Stop Dose Admin Albuterol/Ipratropium 3 ml 11/17/18 10:30 11/21/18 14:42 Duoneb NEB Not Given [id number] POLY Amlodipine Besylate 10 mg 11/17/18 09:00 11/20/18 09:01 Norvasc PO 10 mg DAILY POLY Administration Bisacodyl 10 mg 11/20/18 23:24 11/20/18 23:34 Dulcolax [place] 10 mg DAILYPRN PRN Administration Constipation Budesonide 0.5 mg 11/20/18 18:30 11/21/18 06:08 Pulmicort Neb Solution INH 0.5 mg BID-RT POLY Administration Hydralazine HCl 10 mg 11/16/18 17:23 11/17/18 05:01 Apresoline SLOW IVP 10 mg Q4H PRN Administration Hypertension Sodium Chloride 1,000 mls @ 50 mls/hr 11/17/18 08:57 11/21/18 05:58 Normal Saline 0.9% IV 1,000 mls .Q20H POLY Administration Methylprednisolone Sodium Succinate 40 mg 11/20/18 12:00 11/21/18 15:01 Solu-Medrol IVP Not Given Q6HR POLY Mometasone Furoate/Formoterol Fumar 2 puff 11/17/18 18:30 11/21/18 06:26 Dulera 200 Mcg/5 Mcg Inhaler INH 2 puff BID-RT POLY Administration Polyethylene Glycol 17 gm 11/19/18 09:00 11/20/18 09:01 Miralax PO 17 gm DAILY POLY Administration - Exam Eye: PERRL, anicteric sclera Heart: RRR, no murmur, no gallops, no rubs Respiratory: CTAB (+ coarse breath soundsbilaterally, no rales or wheezing or rhonchi) Gastrointestinal: soft, non-tender, non-distended, normal bowel sounds, no palpable masses, no hepatomegaly Extremities: 1+ LE edema (+ trace edema bilaterally) Hosp A/P (1) Pleural effusion Code(s): J90 - PLEURAL EFFUSION, NOT ELSEWHERE CLASSIFIED Status: Acute (2) Acute respiratory failure with hypoxia Code(s): J96.01 - ACUTE RESPIRATORY FAILURE WITH HYPOXIA Status: Acute (3) HTN (hypertension) Code(s): I10 - ESSENTIAL (PRIMARY) HYPERTENSION Status: Acute (4) Hypercalcemia of malignancy Code(s): E83.52 - HYPERCALCEMIA Status: Acute (5) Non-Hodgkin lymphoma Code(s): C85.90 - NON-HODGKIN LYMPHOMA, UNSPECIFIED, UNSPECIFIED SITE Status: Acute - Plan * Malignant Pleural effusion- she is s/p PleurX catheter placement * HTN- blood pressure is a bit labile- will continue to monitor and titrate medications if needed * Still awaiting Path results from the lymph node biopsy
[2018-11-21] MEDS: Polyethylene Glycol 3350 17 GM Packet PO SCH (16:22)
[2018-11-21] MEDS: Amlodipine 5 MG TAB PO SCH (16:24)
[2018-11-22] MEDS: methylPREDNISolone Sod Succ 40 MG VIAL IVP SCH ×2 (01:30→05:56)
[2018-11-22] MEDS: Budesonide 0.5 MG/2 ML NEB INH SCH ×2 (06:31→18:29)
[2018-11-22] MEDS: Mometasone/Formoterol 120 PUFF INHALER INH SCH ×2 (07:06→18:30)
[2018-11-22] MEDS: Amlodipine 5 MG TAB PO SCH (09:18)
[2018-11-22] MEDS: Polyethylene Glycol 3350 17 GM Packet PO SCH (09:19)
[2018-11-22 10:36] LABS: #Lymphocytes 0.4 thou/uL (1.20-3.40); #Monocytes 1.9 thou/uL (0.11-0.59); #Neutrophils 14.7 thou/uL (1.40-6.50); %Basophils 0.1 % (0.0-1.0); %Eosinophils 0.2 % (0.0-10.0); %Lymphocytes 2.1 % (21.0-51.0); %Monocytes 10.9 % (0.0-10.0); %Neutrophils 86.8 % (42.0-75.0); Hemoglobin 13.2 g/dL (12.0-16.0); Mean Corpuscular HGB CONC 32.3 g/dL (32.0-36.0); Mean Corpuscular Hemoglobin 31.2 pg (27.0-31.0); Mean Corpuscular Volume 96.5 fL (78.0-98.0); Platelet Count 284 thou/uL (130-400); RBC Distribution Width 14.2 % (11.5-14.5); Red Blood Cell (RBC) Count 4.23 mill/uL (4.20-5.40); White Blood Cell (WBC) Count 16.9 thou/uL (4.8-10.8)
[2018-11-22 10:58] LABS: Anion Gap 11 mmol/L (10-20); BUN (Urea Nitrogen) 28 mg/dL (9.8-20.1); Calc. Creatinine Clearance 40 mL/min (70-130); Calcium 8.7 mg/dL (7.8-10.44); Carbon Dioxide 22 mmol/L (23-31); Chloride 110 mmol/L (98-107); Estimated GFR-MDRD 58; Glucose 127 mg/dL (83-110); Potassium 4.4 mmol/L (3.5-5.1); Sodium 139 mmol/L (136-145)
--- NOTE | 2018-11-22 11:00 | PRG ---
DATE OF SERVICE: 11/22/2018 SUBJECTIVE: This morning, the patient is awake, alert, responsive, much better. Less short of breath. OBJECTIVE: VITAL SIGNS: Saturations are 95%_ on 2 L, respiratory rate 20, temperature 97, blood pressure 142/67. CHEST: Decreased breath sounds. No wheezing. CARDIAC: Normal S1, S2. No gallops. ABDOMEN: No masses. IMPRESSION: Status post right-sided pleural cath for recurrent chylous effusion , lymphoma, much improved. Disposition as per Oncology. Supportive care, PT. We will follow. Job ID: [id number] [id number]
--- NOTE | 2018-11-22 15:09 | PDOC.HOSPP ---
- Subjective Subjective: Ms. Lowery was seen today in follow-up of Malignant effusion. She does not have any complaints today. She says she is breathing better. - Objective Vital Signs & Weight: Vital Signs (12 hours) Temp Pulse Resp BP Pulse Ox 11/22/18 14:19 91 15 97 11/22/18 12:00 97.6 F 99 20 131/61 96 11/22/18 11:04 96 16 97 11/22/18 07:20 97.9 F 97 20 142/67 H 93 L 11/22/18 06:26 96 14 11/22/18 04:00 97.6 F 100 18 161/76 H 94 L Weight Weight 133 lb 4.8 oz I&O: 11/21/18 11/22/18 11/23/18 06:59 06:59 06:59 Intake Total 1200 900 480 Output Total 1900 1050 Balance -700 -150 480 Result Diagrams: 11/22/18 10:24 11/22/18 10:24 ROS - Review of Systems All systems: All other ROS were reviewed and found negative. - Medication Medications: Active Medications Generic Name Dose Route Start Last Admin Trade Name Freq PRN Reason Stop Dose Admin Albuterol/Ipratropium 3 ml 11/17/18 10:30 11/22/18 14:19 Duoneb NEB 3 ml [id number] POLY Administration Amlodipine Besylate 10 mg 11/17/18 09:00 11/22/18 09:18 Norvasc PO 10 mg DAILY POLY Administration Bisacodyl 10 mg 11/20/18 23:24 11/20/18 23:34 Dulcolax [place] 10 mg DAILYPRN PRN Administration Constipation Budesonide 0.5 mg 11/20/18 18:30 11/22/18 06:31 Pulmicort Neb Solution INH 0.5 mg BID-RT POLY Administration Hydralazine HCl 10 mg 11/16/18 17:23 11/17/18 05:01 Apresoline SLOW IVP 10 mg Q4H PRN Administration Hypertension Mometasone Furoate/Formoterol Fumar 2 puff 11/17/18 18:30 11/22/18 07:06 Dulera 200 Mcg/5 Mcg Inhaler INH 2 puff BID-RT POLY Administration Polyethylene Glycol 17 gm 11/19/18 09:00 11/22/18 09:19 Miralax PO 17 gm DAILY POLY Administration - Exam Eye: PERRL, anicteric sclera ENT: normocephalic atraumatic, no oropharyngeal lesions Heart: RRR, no murmur, no gallops, no rubs, normal peripheral pulses Respiratory: CTAB, no wheezes, no rales, no ronchi, normal chest expansion, no tachypnea, normal percussion Gastrointestinal: soft, non-tender, non-distended, normal bowel sounds, no palpable masses, no hepatomegaly, no splenomegaly Extremities: 1+ LE edema Hosp A/P (1) Pleural effusion Code(s): J90 - PLEURAL EFFUSION, NOT ELSEWHERE CLASSIFIED Status: Acute (2) Acute respiratory failure with hypoxia Code(s): J96.01 - ACUTE RESPIRATORY FAILURE WITH HYPOXIA Status: Acute (3) HTN (hypertension) Code(s): I10 - ESSENTIAL (PRIMARY) HYPERTENSION Status: Acute (4) Hypercalcemia of malignancy Code(s): E83.52 - HYPERCALCEMIA Status: Acute (5) Non-Hodgkin lymphoma Code(s): C85.90 - NON-HODGKIN LYMPHOMA, UNSPECIFIED, UNSPECIFIED SITE Status: Acute - Plan * 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
[2018-11-22] MEDS ORDERED: PROPOFOL 200 MG/20 ML VIAL ONE (16:56)
[2018-11-22] MEDS ORDERED: CEFAZOLIN 2 GM, IV Admixture Fee-Chemo 1 UNITS in Sodium Chloride 0.9% 100 ML IVPB SCH (18:15)
[2018-11-23] MEDS: Budesonide 0.5 MG/2 ML NEB INH SCH ×2 (06:36→18:38)
[2018-11-23] MEDS ORDERED: CYCLOPHOSPHAMIDE IVPB SCH ×2 (06:45→09:00)
[2018-11-23] MEDS ORDERED: SODIUM CHLORIDE 0.9% IVPB SCH ×4 (06:45→09:00)
[2018-11-23] MEDS ORDERED: diphenhydrAMINE 50 MG in Sodium Chloride 0.9% 50 ML IVPB SCH ×2 (06:45→18:15)
[2018-11-23] MEDS: Mometasone/Formoterol 120 PUFF INHALER INH SCH ×2 (06:53→18:45)
[2018-11-23] MEDS ORDERED: RITUXIMAB IVPB SCH ×2 (07:00→08:00)
[2018-11-23] MEDS ORDERED: vinCRIStine Sulfate 2 MG in Sodium Chloride 0.9% 50 ML IVP SCH (07:00)
[2018-11-23] MEDS ORDERED: PRE FILLED IVP SCH (08:00)
[2018-11-23] MEDS ORDERED: VINCRISTINE SULFATE IVP SCH (08:00)
--- NOTE | 2018-11-23 09:26 | PRG ---
DATE OF SERVICE: 11/23/2018 SUBJECTIVE: She is doing better. She is less short of breath, less cough, less wheezing. She was started on chemotherapy yesterday for lymphoma. OBJECTIVE: VITAL SIGNS: This morning; temperature 97, pulse 79, respirations 20, saturations 93% on 2 L, and blood pressure 143/83. LABORATORY DATA: White count 16,000. Lytes are normal. ASSESSMENT: 1. Bilateral pleural effusion secondary to lymphoma. 2. Status post pleural cath, recurrent pleural effusion. PLAN: Continue supportive care, PT. Breathing is improved. Disposition as per Oncology. Job ID: [id number]
[2018-11-23] MEDS: predniSONE 20 MG TAB PO SCH (09:27)
[2018-11-23] MEDS: Amlodipine 5 MG TAB PO SCH (09:27)
[2018-11-23] MEDS: Polyethylene Glycol 3350 17 GM Packet PO SCH (09:28)
--- NOTE | 2018-11-23 09:28 | PDOC.HOSPP ---
- Subjective Subjective: Ms. Lowery was seen today in follow-up of malignant effusion. She had the PleurX catheter placed yesterday. She does not have any complaints today. - Objective Vital Signs & Weight: Vital Signs (12 hours) Temp Pulse Resp BP Pulse Ox 11/23/18 07:47 97.6 F 99 20 152/83 H 93 L 11/23/18 06:32 95 16 94 L 11/23/18 04:00 97.1 F L 85 16 147/67 H 96 11/23/18 02:14 96 11/23/18 02:13 98 11/23/18 00:00 97.4 F L 89 18 130/61 95 11/22/18 22:07 94 12 Weight Weight 137 lb 8 oz I&O: 11/22/18 11/23/18 11/24/18 06:59 06:59 06:59 Intake Total 900 480 Output Total 1050 500 Balance -150 -20 Result Diagrams: 11/22/18 10:24 11/22/18 10:24 ROS - Review of Systems All systems: All other ROS were reviewed and found negative. - Medication Medications: Active Medications Generic Name Dose Route Start Last Admin Trade Name Freq PRN Reason Stop Dose Admin Albuterol/Ipratropium 3 ml 11/17/18 10:30 11/23/18 06:32 Duoneb NEB 3 ml [id number] POLY Administration Amlodipine Besylate 10 mg 11/17/18 09:00 11/22/18 09:18 Norvasc PO 10 mg DAILY POLY Administration Bisacodyl 10 mg 11/20/18 23:24 11/20/18 23:34 Dulcolax [place] 10 mg DAILYPRN PRN Administration Constipation Budesonide 0.5 mg 11/20/18 18:30 11/23/18 06:36 Pulmicort Neb Solution INH 0.5 mg BID-RT POLY Administration Hydralazine HCl 10 mg 11/16/18 17:23 11/17/18 05:01 Apresoline SLOW IVP 10 mg Q4H PRN Administration Hypertension Mometasone Furoate/Formoterol Fumar 2 puff 11/17/18 18:30 11/23/18 06:53 Dulera 200 Mcg/5 Mcg Inhaler INH 2 puff BID-RT POLY Administration Polyethylene Glycol 17 gm 11/19/18 09:00 11/22/18 09:19 Miralax PO 17 gm DAILY POLY Administration - Exam Eye: PERRL, anicteric sclera Heart: RRR, no murmur, no gallops, no rubs Respiratory: CTAB, no wheezes, no rales (decreased breath sounds at the bases), no ronchi, normal chest expansion Gastrointestinal: soft, non-tender, non-distended, normal bowel sounds, no hepatomegaly Extremities: no cyanosis, 1+ LE edema (lower extremty edema) Hosp A/P (1) Pleural effusion Code(s): J90 - PLEURAL EFFUSION, NOT ELSEWHERE CLASSIFIED Status: Acute (2) Acute respiratory failure with hypoxia Code(s): J96.01 - ACUTE RESPIRATORY FAILURE WITH HYPOXIA Status: Acute (3) HTN (hypertension) Code(s): I10 - ESSENTIAL (PRIMARY) HYPERTENSION Status: Acute (4) Hypercalcemia of malignancy Code(s): E83.52 - HYPERCALCEMIA Status: Acute (5) Non-Hodgkin lymphoma Code(s): C85.90 - NON-HODGKIN LYMPHOMA, UNSPECIFIED, UNSPECIFIED SITE Status: Acute - Plan * Malignant Pleural effusion- she is s/p PleurX catheter placement * She has been evaluated by Oncology, and a treatment plan has been established * She can be moved to the Oncology floor, to begin chemotherapy * HTN- blood pressure is stable * Hypercalcemia in malignancy- improved * disposition as per oncology
[2018-11-24] MEDS: hydrALAZINE 20 MG/ML VIAL SLOW IVP PRN (03:50)
[2018-11-24] MEDS ORDERED: Senokot S 8.6-50 MG TAB PO PRN (05:47)
[2018-11-24] MEDS ORDERED: Bupivacaine HCl 0.5%/Epinephrine 1:200,000/PF 30 ml Vial ONE (06:27)
[2018-11-24] MEDS ORDERED: Lidocaine 2% PF 5 ML VIAL ONE (06:27)
[2018-11-24] MEDS ORDERED: ceFAZolin Sodium (SDC) 2 GM/100 ML BAG ONE (06:51)
[2018-11-24] MEDS ORDERED: Fentanyl 100 MCG/2 ML VIAL ONE (07:08)
[2018-11-24] MEDS ORDERED: Ketamine 50 MG/ML (10ML VIAL) ONE (07:08)
[2018-11-24] MEDS ORDERED: PROPOFOL 20 ML ONE (07:08)
[2018-11-24] MEDS: Budesonide 0.5 MG/2 ML NEB INH SCH ×2 (07:29→18:14)
[2018-11-24] MEDS: Mometasone/Formoterol 120 PUFF INHALER INH SCH ×2 (07:30→18:15)
[2018-11-24] MEDS ORDERED: predniSONE 50 MG TAB PO SCH (08:00)
[2018-11-24] MEDS ORDERED: Promethazine HCl 25 MG/ML VIAL SLOW IVP PRN (08:08)
[2018-11-24] MEDS ORDERED: Promethazine HCl 25 MG/ML VIAL IM PRN (08:08)
[2018-11-24] MEDS ORDERED: Ondansetron HCl/PF 4 MG/2 ML Vial IVP PRN (08:08)
--- NOTE | 2018-11-24 08:49 | RAD ---
CHEST ONE VIEW: History: Mediport placement. Comparison: 11-21-18 FINDINGS: The right layering pleural effusion has increased. Thoracostomy tube tip is projected into the right lung apex. New [id number] is in place with the tip at the inferior SVC. Moderate left effusion. No left pneumothorax. Cardiac silhouette and mediastinal contours are similar. IMPRESSION: 1. Uncomplicated placement of [id number]. 2. Size increased of slight layering effusion. POS: OFF
[2018-11-24] MEDS: Polyethylene Glycol 3350 17 GM Packet PO SCH (09:46)
[2018-11-24] MEDS: Sodium Chloride 0.9% 1,000 ML IV SCH (09:46)
[2018-11-24] MEDS: predniSONE 20 MG TAB PO SCH (09:46)
[2018-11-24] MEDS: Amlodipine 5 MG TAB PO SCH (09:47)
--- NOTE | 2018-11-24 10:09 | PRG ---
DATE OF SERVICE: 11/24/2018 SUBJECTIVE: Shalini Lowery is an 88-year-old female. This morning, she is better. She had a MediPort inserted. X-ray post port shows no pleural effusion on the right side. OBJECTIVE: VITAL SIGNS: Temperature is 97, pulse 82, respirations 20, saturations 94% on 2 L, and blood pressure 163/74. CHEST: No wheezing or crackles. CARDIAC: Normal S1 and S2. No gallops. ABDOMEN: No masses. 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 PLAN: Chemotherapy, Oncology. Disposition as per oncology. Pulmonary will follow while in the hospital. When , She has a dyspnoe would drain pleural fluid Job ID: [id number] MTDD
--- NOTE | 2018-11-24 10:14 | OP ---
DATE OF PROCEDURE: 11/24/2018 PREOPERATIVE DIAGNOSIS: Lymphoma. POSTOPERATIVE DIAGNOSIS: Lymphoma. PROCEDURE PERFORMED: Right subclavian vein, low-profile MediPort. ANESTHESIA: TIVA, local 0.5% Marcaine with epinephrine 30 mL mixed to 2% Xylocaine 10 mL. DESCRIPTION OF PROCEDURE: The patient was taken to the operating room, where under intravenous sedation, chest and neck were prepared with ChloraPrep and draped in routine fashion. Local anesthetic mixture was infiltrated into the skin and subcutaneous tissue about the operative site. Infraclavicular approach was used to cannulate the right subclavian vein with trocar catheter, J-wire threaded, trocar catheter removed. Skin was incised and enlarged sharply, carried down through the skin and subcutaneous tissue, creating a pocket for the MediPort. Dilator and Peel-Away sheath were placed over the J-wire into superior vena cava. Dilator and J-wire were removed. Catheter was placed with the Peel-Away sheath. Peel-Away sheath was removed. Fluoroscopically, catheter tip was placed in optimal position in superior vena cava, and catheter tailored to length and connected to the MediPort with the connecting device, and the MediPort was placed in the subcutaneous pocket and secured with 2 interrupted sutures of 3-0 Prolene. Subcutaneous tissue was approximated with 3-0 Monocryl, skin with subdermal 4-0 Monocryl, and [place]hu glue applied. MediPort and catheter position verified with fluoroscopy and MediPort was accessed with Babcock needle, aspirated blood, flushed with heparinized saline solution, and sterile dressings applied. Job ID: [id number]
[2018-11-24] MEDS ORDERED: RITUXIMAB IVPB SCH (10:30)
[2018-11-24] MEDS ORDERED: SODIUM CHLORIDE 0.9% IVPB SCH ×2 (10:30)
[2018-11-24] MEDS ORDERED: vinCRIStine Sulfate 2 MG in Sodium Chloride 0.9% 50 ML IVP SCH (10:30)
[2018-11-24] MEDS ORDERED: CYCLOPHOSPHAMIDE IVPB SCH (10:30)
[2018-11-24] MEDS ORDERED: Acetaminophen 500 MG TAB PO SCH ×2 (12:45→19:00)
[2018-11-24] MEDS ORDERED: Dexamethasone 10 MG in Sodium Chloride 0.9% 50 ML IVPB SCH (12:45)
[2018-11-24] MEDS ORDERED: Palonosetron HCl 0.25 MG in Sodium Chloride 0.9% 50 ML IVPB SCH (12:45)
[2018-11-24 12:48] VITALS: BMI 23.6
--- NOTE | 2018-11-24 21:22 | PDOC.HOSPP ---
- Subjective Subjective: f/u for lymphoma s/p Mediport placement. Feels ok overall and ready to start treatment. - Objective Vital Signs & Weight: Vital Signs (12 hours) Temp Pulse Resp BP Pulse Ox 11/24/18 19:39 98.4 F 100 16 154/68 H 92 L 11/24/18 18:14 92 16 93 L 11/24/18 17:00 98.0 F 91 18 151/99 H 94 L 11/24/18 16:13 97.8 F 98 20 154/65 H 94 L 11/24/18 14:30 93 16 92 L 11/24/18 12:00 98.3 F 90 18 137/63 94 L 11/24/18 11:05 93 16 93 L 11/24/18 09:47 82 Weight Admit Weight 133 lb 4.8 oz Weight 137 lb 9.12 oz I&O: 11/23/18 11/24/18 11/25/18 06:59 06:59 06:59 Intake Total 720 720 450 Output Total 500 1400 375 Balance 220 -680 75 Result Diagrams: 11/22/18 10:24 11/22/18 10:24 Additional Labs: Laboratory Tests 11/14/18 11/15/18 11/17/18 16:50 17:00 05:46 WBC 18.1 H Neutrophils % 86.8 H Lactic Acid Uric Acid Lactate Dehydrogenase 233 H 260 H 11/20/18 11/20/18 11/22/18 21:41 21:41 10:24 WBC 11.7 H Neutrophils % 96.6 H 86.8 H Lactic Acid 1.4 Uric Acid Lactate Dehydrogenase 11/22/18 11/22/18 17:26 17:26 WBC Neutrophils % Lactic Acid Uric Acid 6.3 H Lactate Dehydrogenase 258 H Radiology Reviewed by me: Yes (PCXR - mediport in place) ROS - Review of Systems All systems: All other ROS were reviewed and found negative. - Medication Medications: Active Medications Generic Name Dose Route Start Last Admin Trade Name Freq PRN Reason Stop Dose Admin Albuterol/Ipratropium 3 ml 11/17/18 10:30 11/24/18 18:14 Duoneb NEB 3 ml [id number] POLY Administration Amlodipine Besylate 10 mg 11/17/18 09:00 11/24/18 09:47 Norvasc PO 10 mg DAILY POLY Administration Bisacodyl 10 mg 11/20/18 23:24 11/20/18 23:34 Dulcolax [place] 10 mg DAILYPRN PRN Administration Constipation Budesonide 0.5 mg 11/20/18 18:30 11/24/18 18:14 Pulmicort Neb Solution INH 0.5 mg BID-RT POLY Administration Hydralazine HCl 10 mg 11/16/18 17:23 11/24/18 03:50 Apresoline SLOW IVP 10 mg Q4H PRN Administration Hypertension Sodium Chloride 1,000 mls @ 70 mls/hr 11/24/18 08:00 11/24/18 09:46 Normal Saline 0.9% IV 1,000 mls .[id number] POLY Administration Diphenhydramine HCl 50 mg/ 51 mls @ 153 mls/hr 11/23/18 06:45 11/24/18 19:42 Sodium Chloride IVPB 51 mls WILLCALL POLY Administration Cyclophosphamide 1 gm/ 309.5 mls @ 412.667 mls/hr 11/24/18 10:30 11/24/18 16: 15 Cyclophosphamide 190 mg/ IVPB 309.5 mls Sodium Chloride WILLCALL POLY Administration Rituximab 592 mg/ Sodium 559.2 mls @ 0 mls/hr 11/24/18 10:30 11/24/18 20:18 Chloride IVPB 559.2 mls WILLCALL POLY Administration As Directed Vincristine Sulfate 2 mg/ 52 mls @ 0 mls/hr 11/24/18 10:30 11/24/18 16:05 Sodium Chloride IVP 52 mls WILLCALL POLY Administration As Directed Mometasone Furoate/Formoterol Fumar 2 puff 11/17/18 18:30 11/24/18 18:15 Dulera 200 Mcg/5 Mcg Inhaler INH 2 puff BID-RT POLY Administration Polyethylene Glycol 17 gm 11/19/18 09:00 11/24/18 09:46 Miralax PO 17 gm DAILY POLY Administration Prednisone 20 mg 11/23/18 08:00 11/24/18 09:46 Prednisone PO 20 mg QAM-WM POLY Administration Sodium Chloride 10 ml 11/24/18 09:00 11/24/18 21:15 Flush - Normal Saline IVF Not Given Q12HR POLY - Exam NAD, awake alert Eye: PERRL, anicteric sclera ENT: normocephalic atraumatic, no oropharyngeal lesions Neck: supple, symmetric, no JVD, no Thyromegaly Heart: RRR, no murmur, no gallops, no rubs Respiratory: CTAB, no wheezes, no rales, no ronchi, normal chest expansion ( decreased sounds at bases) Gastrointestinal: soft, non-tender, non-distended, normal bowel sounds Extremities: no cyanosis, no clubbing, 1+ LE edema Neurological: CN's grossly intact, no focal deficits, no new deficit Musculoskeletal: normal strength Psychiatric: A&O x 3 Hosp A/P (1) Acute respiratory failure with hypoxia Code(s): J96.01 - ACUTE RESPIRATORY FAILURE WITH HYPOXIA Status: Acute Plan: Multifactorial with current O2 supplementation @ 2L/min NC (2) Non-Hodgkin lymphoma Code(s): C85.90 - NON-HODGKIN LYMPHOMA, UNSPECIFIED, UNSPECIFIED SITE Status: Acute Qualifiers: Non-Hodgkin lymphoma type: 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 Plan: Consult Med Oncology for treatment plan, s/p Mediport placement (3) Pleural effusion Code(s): J90 - PLEURAL EFFUSION, NOT ELSEWHERE CLASSIFIED Status: Acute Plan: Malignant effusion, s/p PleurX catheter placement (4) HTN (hypertension) Code(s): I10 - ESSENTIAL (PRIMARY) HYPERTENSION Status: Chronic Qualifiers: Hypertension type: essential hypertension Qualified Code(s): I10 - Essential (primary) hypertension Plan: Continue Amlodipine and monitor clinical response - Plan continue antibiotics, PT/OT, social work case manager, respiratory therapy, incentive spirometry, DVT proph w/SCDs Stable currently s/p Mediport placement Oncology assistance for treatment plan Consider Palliative Care consult
[2018-11-25] MEDS: Sodium Chloride 0.9% 1,000 ML IV SCH ×2 (01:21→15:36)
[2018-11-25 04:45] LABS: ALT (SGPT) Less than 7 U/L (8-55); AST (SGOT) 16 U/L (5-34); Alkaline Phosphatase 65 U/L (40-150); Anion Gap 10 mmol/L (10-20); BUN (Urea Nitrogen) 18 mg/dL (9.8-20.1); Bilirubin, Total 0.4 mg/dL (0.2-1.2); Calc. Creatinine Clearance 50 mL/min (70-130); Calcium 8.3 mg/dL (7.8-10.44); Carbon Dioxide 24 mmol/L (23-31); Chloride 110 mmol/L (98-107); Estimated GFR-MDRD 72; Glucose 122 mg/dL (83-110); Potassium 4.3 mmol/L (3.5-5.1); Sodium 140 mmol/L (136-145); Uric Acid 4.5 mg/dL (2.6-6.0)
[2018-11-25 04:52] LABS: Band 15 % (5-11); Hemoglobin 13.9 g/dL (12.0-16.0); Lymphocytes 2 % (21-51); MDiff Complete? YES; Mean Corpuscular HGB CONC 33.2 g/dL (32.0-36.0); Mean Corpuscular Hemoglobin 31.6 pg (27.0-31.0); Mean Corpuscular Volume 95.1 fL (78.0-98.0); Monocytes 2 % (0-10); Neutrophil 81 % (42-75); Platelet Count 278 thou/uL (130-400); RBC Distribution Width 13.9 % (11.5-14.5)
[2018-11-25] MEDS: Mometasone/Formoterol 120 PUFF INHALER INH SCH ×2 (07:18→18:21)
[2018-11-25] MEDS: Budesonide 0.5 MG/2 ML NEB INH SCH ×2 (07:20→18:21)
[2018-11-25] MEDS ORDERED: PEGFILGRASTIM-JMDB 6 MG/0.6 ML SYRINGE SQ SCH (09:00)
--- NOTE | 2018-11-25 09:45 | PRG ---
DATE OF SERVICE: 11/25/2018 SUBJECTIVE: Status post chemotherapy for malignant lymphoma. OBJECTIVE: VITAL SIGNS: Saturations are 92% on 2 L, respiratory rate 22, temperature 97, blood pressure 130/60. CHEST: Decreased breath sounds. No wheezing. CARDIAC: Normal S1 and S2. No gallops. ABDOMEN: No masses. IMPRESSION: 1. Bilateral pleural effusions. 2. Status post pleural catheter, right chest. Baseline probably underlying chronic obstructive pulmonary disease. PLAN: Continue present treatment. Neb treatments, supportive care. Eventually, disposition as per primary care physician. Job ID: [id number]
[2018-11-25] MEDS: predniSONE 20 MG TAB PO SCH (10:09)
[2018-11-25] MEDS: Amlodipine 5 MG TAB PO SCH (10:09)
[2018-11-25] MEDS: Polyethylene Glycol 3350 17 GM Packet PO SCH (10:09)
[2018-11-25] MEDS: predniSONE 50 MG TAB PO SCH (10:11)
--- NOTE | 2018-11-25 17:00 | PDOC.HOSPP ---
- Subjective Subjective: f/u for Large B-cell lymphoma initiating chemotherapy. Feels ok overall. s/p mediport placement - Objective Vital Signs & Weight: Vital Signs (12 hours) Temp Pulse Resp BP Pulse Ox 11/25/18 15:23 85 16 95 11/25/18 13:31 97.8 F 92 20 149/75 H 93 L 11/25/18 10:29 90 18 96 11/25/18 10:09 84 11/25/18 08:00 97.7 F 84 22 H 150/66 H 92 L 11/25/18 07:22 103 H 24 H 94 L 11/25/18 07:20 103 H 24 H 94 L 11/25/18 07:18 103 H 24 H 94 L Weight Admit Weight 133 lb 4.8 oz Weight 137 lb 9.12 oz I&O: 11/24/18 11/25/18 11/26/18 06:59 06:59 06:59 Intake Total 720 1618 Output Total 1400 1025 Balance -680 593 Result Diagrams: 11/25/18 03:55 11/25/18 03:55 Additional Labs: Laboratory Tests 11/14/18 11/15/18 11/17/18 16:50 17:00 05:46 WBC 18.1 H Neutrophils % 86.8 H Neutrophils % (Manual) Lactic Acid Uric Acid Lactate Dehydrogenase 233 H 260 H 11/20/18 11/20/18 11/22/18 21:41 21:41 10:24 WBC 11.7 H 16.9 H Neutrophils % 96.6 H 86.8 H Neutrophils % (Manual) Lactic Acid 1.4 Uric Acid Lactate Dehydrogenase 11/22/18 11/22/18 11/25/18 17:26 17:26 03:55 WBC Neutrophils % Neutrophils % (Manual) Lactic Acid Uric Acid 6.3 H 4.5 Lactate Dehydrogenase 258 H 11/25/18 03:55 WBC Neutrophils % Neutrophils % (Manual) 81 H Lactic Acid Uric Acid Lactate Dehydrogenase ROS - Review of Systems All systems: All other ROS were reviewed and found negative. - Medication Medications: Active Medications Generic Name Dose Route Start Last Admin Trade Name Freq PRN Reason Stop Dose Admin Albuterol/Ipratropium 3 ml 11/17/18 10:30 11/25/18 15:23 Duoneb NEB 3 ml [id number] POLY Administration Amlodipine Besylate 10 mg 11/17/18 09:00 11/25/18 10:09 Norvasc PO 10 mg DAILY POLY Administration Bisacodyl 10 mg 11/20/18 23:24 11/20/18 23:34 Dulcolax [place] 10 mg DAILYPRN PRN Administration Constipation Budesonide 0.5 mg 11/20/18 18:30 11/25/18 07:20 Pulmicort Neb Solution INH 0.5 mg BID-RT POLY Administration Hydralazine HCl 10 mg 11/16/18 17:23 11/24/18 03:50 Apresoline SLOW IVP 10 mg Q4H PRN Administration Hypertension Sodium Chloride 1,000 mls @ 70 mls/hr 11/24/18 08:00 11/25/18 15:36 Normal Saline 0.9% IV 1,000 mls .[id number] POLY Administration Diphenhydramine HCl 50 mg/ 51 mls @ 153 mls/hr 11/23/18 06:45 11/24/18 19:42 Sodium Chloride IVPB 51 mls WILLCALL POLY Administration Cyclophosphamide 1 gm/ 309.5 mls @ 412.667 mls/hr 11/24/18 10:30 11/24/18 16: 15 Cyclophosphamide 190 mg/ IVPB 309.5 mls Sodium Chloride WILLCALL POLY Administration Rituximab 592 mg/ Sodium 559.2 mls @ 0 mls/hr 11/24/18 10:30 11/24/18 20:18 Chloride IVPB 559.2 mls WILLCALL POLY Administration As Directed Vincristine Sulfate 2 mg/ 52 mls @ 0 mls/hr 11/24/18 10:30 11/24/18 16:05 Sodium Chloride IVP 52 mls WILLCALL POLY Administration As Directed Mometasone Furoate/Formoterol Fumar 2 puff 11/17/18 18:30 11/25/18 07:18 Dulera 200 Mcg/5 Mcg Inhaler INH 2 puff BID-RT POLY Administration Polyethylene Glycol 17 gm 11/19/18 09:00 11/25/18 10:09 Miralax PO 17 gm DAILY POLY Administration Prednisone 100 mg 11/25/18 08:00 11/25/18 10:11 Prednisone PO 11/28/18 10:00 100 mg QAM-WM POLY Administration Sodium Chloride 10 ml 11/24/18 09:00 11/25/18 10:11 Flush - Normal Saline IVF 10 ml Q12HR POLY Administration - Exam NAD, awake alert Eye: PERRL, anicteric sclera ENT: normocephalic atraumatic, no oropharyngeal lesions, moist mucosa Neck: supple, symmetric, no JVD, no Thyromegaly Heart: RRR, no murmur, no gallops, no rubs Respiratory: CTAB, no wheezes, no rales, no ronchi (diminished in R base) Gastrointestinal: soft, non-tender, non-distended, normal bowel sounds Extremities: no cyanosis, no clubbing, 1+ LE edema Neurological: CN's grossly intact, no focal deficits Psychiatric: normal behavior, A&O x 3 Hosp A/P (1) Acute respiratory failure with hypoxia Code(s): J96.01 - ACUTE RESPIRATORY FAILURE WITH HYPOXIA Status: Acute Plan: Improved, continue low-volume O2 supplementation (2) Non-Hodgkin lymphoma Code(s): C85.90 - NON-HODGKIN LYMPHOMA, UNSPECIFIED, UNSPECIFIED SITE Status: Acute Qualifiers: Non-Hodgkin lymphoma type: 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 Plan: s/p first chemotherapy session, plan for next cycle in 3 weeks (3) Pleural effusion Code(s): J90 - PLEURAL EFFUSION, NOT ELSEWHERE CLASSIFIED Status: Acute Plan: R PleurX catheter in place, intermittent evacuation (4) HTN (hypertension) Code(s): I10 - ESSENTIAL (PRIMARY) HYPERTENSION Status: Chronic Qualifiers: Hypertension type: essential hypertension Qualified Code(s): I10 - Essential (primary) hypertension Plan: Stable, continue BP regimen - Plan PT/OT, social science teacher, respiratory therapy, out of bed/ambulate, DVT proph w/ SCDs Stable currently Continue PT/OT for mobilization Rehab screening Continue DuStella reyes Saline Lock IVF's in 24h
[2018-11-26] MEDS ORDERED: PEGFILGRASTIM-JMDB 6 MG/0.6 ML SYRINGE SQ SCH (00:15)
[2018-11-26 05:10] LABS: Hep B Surface AG-Rflx Sendout Negative (Negative); Hepatitis B Core Total Negative (Negative); Hepatitis B Surface AB-Sendout Non Reactive (.)
[2018-11-26] MEDS: Sodium Chloride 0.9% 1,000 ML IV SCH (05:54)
[2018-11-26] MEDS: Mometasone/Formoterol 120 PUFF INHALER INH SCH ×2 (07:51→18:26)
[2018-11-26] MEDS: Budesonide 0.5 MG/2 ML NEB INH SCH ×2 (07:53→18:24)
[2018-11-26] MEDS: Polyethylene Glycol 3350 17 GM Packet PO SCH (08:55)
[2018-11-26] MEDS: Amlodipine 5 MG TAB PO SCH (08:56)
[2018-11-26] MEDS: predniSONE 50 MG TAB PO SCH (08:56)
--- NOTE | 2018-11-26 15:20 | PDOC.HOSPP ---
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 Awaiting Rehab options. - Objective Vital Signs & Weight: Vital Signs (12 hours) Temp Pulse Resp BP Pulse Ox 11/26/18 15:11 102 H 20 94 L 11/26/18 12:32 97 11/26/18 12:20 86 20 97 11/26/18 08:56 93 11/26/18 08:15 98.0 F 93 20 163/71 H 97 11/26/18 08:00 97 11/26/18 07:54 91 16 94 L 11/26/18 07:51 91 16 97 11/26/18 03:20 98.2 F 98 20 135/99 H 97 Weight Admit Weight 133 lb 4.8 oz Weight 137 lb 9.12 oz I&O: 11/25/18 11/26/18 11/27/18 06:59 06:59 06:59 Intake Total 1618 1900 840 Output Total 1025 1850 Balance 593 50 840 Result Diagrams: 11/25/18 03:55 11/25/18 03:55 Additional Labs: Laboratory Tests 11/14/18 11/15/18 11/17/18 16:50 17:00 05:46 WBC 18.1 H Neutrophils % 86.8 H Neutrophils % (Manual) Lactic Acid Uric Acid Lactate Dehydrogenase 233 H 260 H 11/20/18 11/20/18 11/22/18 21:41 21:41 10:24 WBC 11.7 H 16.9 H Neutrophils % 96.6 H 86.8 H Neutrophils % (Manual) Lactic Acid 1.4 Uric Acid Lactate Dehydrogenase 11/22/18 11/22/18 11/25/18 17:26 17:26 03:55 WBC Neutrophils % Neutrophils % (Manual) Lactic Acid Uric Acid 6.3 H 4.5 Lactate Dehydrogenase 258 H 11/25/18 03:55 WBC Neutrophils % Neutrophils % (Manual) 81 H Lactic Acid Uric Acid Lactate Dehydrogenase ROS - Review of Systems All systems: All other ROS were reviewed and found negative. - Medication Medications: Active Medications Generic Name Dose Route Start Last Admin Trade Name Freq PRN Reason Stop Dose Admin Albuterol/Ipratropium 3 ml 11/17/18 10:30 11/26/18 15:11 Duoneb NEB 3 ml [id number] POLY Administration Amlodipine Besylate 10 mg 11/17/18 09:00 11/26/18 08:56 Norvasc PO 10 mg DAILY POLY Administration Bisacodyl 10 mg 11/20/18 23:24 11/20/18 23:34 Dulcolax KS 10 mg DAILYPRN PRN Administration Constipation Budesonide 0.5 mg 11/20/18 18:30 11/26/18 07:53 Pulmicort Neb Solution INH 0.5 mg BID-RT POLY Administration Hydralazine HCl 10 mg 11/16/18 17:23 11/24/18 03:50 Apresoline SLOW IVP 10 mg Q4H PRN Administration Hypertension Sodium Chloride 1,000 mls @ 70 mls/hr 11/24/18 08:00 11/26/18 05:54 Normal Saline 0.9% IV 1,000 mls .[id number] POLY Administration Diphenhydramine HCl 50 mg/ 51 mls @ 153 mls/hr 11/23/18 06:45 11/24/18 19:42 Sodium Chloride IVPB 51 mls WILLCALL POLY Administration Cyclophosphamide 1 gm/ 309.5 mls @ 412.667 mls/hr 11/24/18 10:30 11/24/18 16: 15 Cyclophosphamide 190 mg/ IVPB 309.5 mls Sodium Chloride WILLCALL POLY Administration Rituximab 592 mg/ Sodium 559.2 mls @ 0 mls/hr 11/24/18 10:30 11/24/18 20:18 Chloride IVPB 559.2 mls WILLCALL POLY Administration As Directed Vincristine Sulfate 2 mg/ 52 mls @ 0 mls/hr 11/24/18 10:30 11/24/18 16:05 Sodium Chloride IVP 52 mls WILLCALL POLY Administration As Directed Mometasone Furoate/Formoterol Fumar 2 puff 11/17/18 18:30 11/26/18 07:51 Dulera 200 Mcg/5 Mcg Inhaler INH 2 puff BID-RT POLY Administration Polyethylene Glycol 17 gm 11/19/18 09:00 11/26/18 08:55 Miralax PO 17 gm DAILY POLY Administration Prednisone 100 mg 11/25/18 08:00 11/26/18 08:56 Prednisone PO 11/28/18 10:00 100 mg QAM-WM POLY Administration Sodium Chloride 10 ml 11/24/18 09:00 11/26/18 08:57 Flush - Normal Saline IVF 10 ml Q12HR POLY Administration - Exam NAD, awake alert Eye: PERRL, anicteric sclera ENT: normocephalic atraumatic, no oropharyngeal lesions Neck: supple, symmetric, no JVD, no Thyromegaly Heart: RRR, no murmur, no gallops, no rubs Respiratory: no wheezes, no rales, rhonchi (diminished in R base) Gastrointestinal: soft, non-tender, non-distended, normal bowel sounds, no palpable masses Extremities: no cyanosis, no clubbing, no edema Skin: normal turgor, no lesions Neurological: CN's grossly intact, no focal deficits, no new deficit Musculoskeletal: generalized weakness Psychiatric: normal behavior, A&O x 3 Hosp A/P (1) Acute respiratory failure with hypoxia Code(s): J96.01 - ACUTE RESPIRATORY FAILURE WITH HYPOXIA Status: Acute (2) Non-Hodgkin lymphoma Code(s): C85.90 - NON-HODGKIN LYMPHOMA, UNSPECIFIED, UNSPECIFIED SITE Status: Acute Qualifiers: Non-Hodgkin lymphoma type: 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 Plan: Initiated on chemotx (3) Pleural effusion Code(s): J90 - PLEURAL EFFUSION, NOT ELSEWHERE CLASSIFIED Status: Acute Plan: continue PleurX catheter (4) HTN (hypertension) Code(s): I10 - ESSENTIAL (PRIMARY) HYPERTENSION Status: Chronic Qualifiers: Hypertension type: essential hypertension Qualified Code(s): I10 - Essential (primary) hypertension Plan: Stable, continue BP regimen - Plan PT/OT, social worker aide, respiratory therapy, DVT proph w/SCDs Stable currently Continue pulmonary support with Duonebs, PleurX catheter Saline Lock IVF's OOB/PT Likely to Rehab in 48h
[2018-11-27] MEDS: Budesonide 0.5 MG/2 ML NEB INH SCH (07:32)
[2018-11-27] MEDS: Mometasone/Formoterol 120 PUFF INHALER INH SCH (07:32)
[2018-11-27 08:46] VITALS: BP 130/62; TEMP 97.9
[2018-11-27] MEDS: Polyethylene Glycol 3350 17 GM Packet PO SCH (09:06)
[2018-11-27] MEDS: Amlodipine 5 MG TAB PO SCH (09:06)
[2018-11-27] MEDS: predniSONE 50 MG TAB PO SCH (09:08)
--- NOTE | 2018-11-27 18:32 | PRG ---
DATE OF SERVICE: SUBJECTIVE: Ms. Lowery has no complaints. stable. Her PleurX catheter is in place. She has drained one time since placement. OBJECTIVE: LUNGS: She has equal breath sounds. GENERAL: She is in no distress, talking in complete sentences. HEART: Regular rhythm. ABDOMEN: Soft. IMPRESSION: Malignant effusion, status post placement of PleurX catheter. She is tentatively scheduled to go to rehab. Job ID: [id number]
--- NOTE | 2018-11-28 03:55 | DIS ---
DATE OF ADMISSION: 11/16/2018 DATE OF DISCHARGE: 11/27/2018 DISCHARGE DIAGNOSES: 1. 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 2. Right malignant pleural effusion, status post PleurX catheter placement. 3. Acute hypoxic respiratory failure secondary to #2, improved. 4. Hypertension, stable. 5. Deconditioning. CONSULTATIONS: 1. Dr. Caruso with Pulmonology Critical Care Service. 2. Dr. Vasquez with General Surgery Service. 3. Dr. Louise and Dr. Schneider with Thoracic Surgery Service. 4. Dr. Valentine with Medical Oncology Service. PERTINENT LABORATORY AND X-RAY FINDINGS: Basic metabolic profile within normal limits. Lactic acid level ranged between 1.4 to 2.4, calcium 9.1, phosphorus 2.0. Magnesium level ranged between 1.7 to 1.9. BNP 193. Procalcitonin 0.07. CBC showed a white blood cell count ranged between 10.3 to 19.0, hemoglobin ranged between 13.2 to 16.5. Hepatitis B panel negative on 11/22/2018. Pleural fluid culture dated 11/16/2018, showed no growth at 5 days. AFB negative on 11/19/2018. CT angiogram of the chest dated 11/16/2018, showed no evidence for pulmonary embolus. Multiple enlarged hilar and mediastinal lymph nodes concerning for lymphoma. Bilateral pleural effusions, right greater than left. Portable chest x-ray dated 11/16/2018, showed moderate right pneumothorax. Pleural cytology dated 11/16/2018, showed follicular lymphoma. 2D transthoracic echocardiogram dated 11/17/2018, showed ejection fraction 55% to 60%. Poor endocardial definition. Moderate pericardial effusion without tamponade. HOSPITAL COURSE: The patient was initially admitted after presenting with increasing shortness of breath and nonproductive cough. The patient underwent extensive evaluation including plain radiograph imaging of the chest in addition to CT angiogram of the chest showing evidence of large right greater than left pleural effusion. The patient was also noted with hypoxemia with O2 saturations in the low 80% range on room air. The patient received oxygen supplementation as well as bronchodilator therapy and was evaluated by the Thoracic Surgery Service. The patient was also noted with prominent lymphadenopathy of the chest with recommendations for biopsy. The patient was evaluated by the Medical Oncology Service with recommendations for biopsy, which occurred from abdominal source showing evidence of follicular lymphoma. The patient also was managed for right-sided pleural effusion with associated atelectasis undergoing a PleurX catheter placement. The patient had successful placement of the catheter with overall improvement in respiratory status and decreased oxygen requirement. The patient also underwent initiation of chemotherapy during her hospital course after cytology was obtained from pleural fluid. The patient received Rituxan, prednisone, Oncovin, and Cytoxan. The patient tolerated the initial chemotherapy without complication. Due to the patient's overall comorbid status and deconditioning, the patient was deemed an appropriate candidate for ongoing inpatient rehabilitation and physical therapy. The patient has been approved to transfer to [facility] on 11/27/2018. I have examined the patient at the time of discharge and discussed followup instructions. The patient verbalized understanding and agreement, ready for discharge on 11/27/2018. DISCHARGE MEDICATIONS: 1. Amlodipine 5 mg p.o. daily. 2. Pulmicort nebulized solution 0.5 mg inhaled b.i.d. 3. DuoNeb 3 mL nebulized q.4 hours p.r.n. 4. Dulera 200/5 mcg 2 puffs inhaled b.i.d. 5. MiraLAX 17 g p.o. daily. 6. Prednisone 100 mg p.o. q.a.m. until 11/28/2018, then 20 mg p.o. daily. 7. Ultram 50 mg p.o. q.6 hours p.r.n. pain. FOLLOWUP: The patient may follow up with her primary care provider after discharge from [facility]. The patient will follow up with Dr. Mio Valentine with the [facility] within one week. The patient will follow up with Dr. Osiel Vasquez within 2 weeks of discharge. CONDITION ON DISCHARGE: Stable. ACTIVITY: Ad-hussein. DIET: Regular. CODE STATUS: Full. DISPOSITION: Discharged to [facility] on 11/27/2018. TIME SPENT: Total time preparing and coordinating discharge, 33 minutes. Job ID: [id number]
== END 2018-11-27 16:30 | DRG 823 ==
LOC: ERS 07:48 → ERHOLD 11:03 → 2SE 14:28 → ONC 11-23 19:28
PROVIDERS: ADMIT Internal Medicine; ATTEND Internal Medicine
PROC: 0W9930Z Drainage of Right Pleural Cavity with Drainage Device, Percutaneous Approach (ICD-10-PCS; 2018-11-16)
PROC: 07BB4ZX Excision of Mesenteric Lymphatic, Percutaneous Endoscopic Approach, Diagnostic (ICD-10-PCS; principal; 2018-11-18)
PROC: 0W9930Z Drainage of Right Pleural Cavity with Drainage Device, Percutaneous Approach (ICD-10-PCS; 2018-11-21)
PROC: 02HV33Z Insertion of Infusion Device into Superior Vena Cava, Percutaneous Approach (ICD-10-PCS; 2018-11-24)
PROC: B518ZZA Fluoroscopy of Superior Vena Cava, Guidance (ICD-10-PCS; 2018-11-24)
PROC: 05H533Z Insertion of Infusion Device into Right Subclavian Vein, Percutaneous Approach (ICD-10-PCS; 2018-11-24)
PROC: B516ZZA Fluoroscopy of Right Subclavian Vein, Guidance (ICD-10-PCS; 2018-11-24)
DX: C85.90 Non-Hodgkin lymphoma, unspecified, unspecified site (principal); J96.01 Acute respiratory failure with hypoxia; J91.0 Malignant pleural effusion; A51.49 Other secondary syphilitic conditions; I10 Essential (primary) hypertension; E83.52 Hypercalcemia; E86.0 Dehydration; N28.9 Disorder of kidney and ureter, unspecified; J44.9 Chronic obstructive pulmonary disease, unspecified; F17.200 Nicotine dependence, unspecified, uncomplicated; Z98.890 Other specified postprocedural states; Z79.899 Other long term (current) drug therapy
CPT/HCPCS: 36415; 71045; 71275; 80048; 80053; 82150; 82248; 82550; 82553; 82945; 83605; 83615; 83735; 83880; 83986; 84100; 84145; 84157; 84478; 84484; 84550; 85025; 85060; 86704; 86705; 86706; 86707; 87070; 87116; 87205; 87206; 87340; 87350; 88112; 88184; 88237; 88264; 88280; 88305; 88307; 88341; 88342; 88360; 89051; 93005; 93306; 94640; 94664; 96361; 96374; C1729; C1788; J0131; J0360; J0670; J0690; J1100; J1200; J1642; J1644; J1650; J1885; J2001; J2250; J2405; J2469; J2704; J2720; J2920; J2930; J3010; J3490; J7050; J7512; J7620; J7626; J9070; J9312; J9370; Q5108; Q9967; S0028

== ENCOUNTER 2018-12-12 14:27 | Outpatient (CLI) | payer MEDICARE ==
--- NOTE | 2018-12-12 14:48 | RAD ---
Exam: Chest 2 views HISTORY:Malignant pleural effusion Comparison: 11/24/2018 FINDINGS: Interval repositioning of right thoracostomy tube, now terminating at inferomedial right hemithorax. Lungs: Bibasilar densities, left greater than right. Cardiac silhouette:Prominent in size, stable appearing. Pulmonary vessels: Interval improvement of prior vascular congestion. Pleural Spaces: Pleural-based densities inferiorly, left greater than right. Pneumothorax: No significant pneumothorax. Right chest port is present. Osseous abnormalities: None of acuity. IMPRESSION: Interval repositioning of right thoracostomy tube. Mild bilateral pleural effusions are p resent, left greater than right.
== END 2018-12-12 14:28 | disposition home or self-care (01) ==
LOC: RAD 14:27
PROVIDERS: ATTEND Thoracic Surgery (Cardiothoracic Vascular Surgery)
DX: J91.0 Malignant pleural effusion (principal); Z98.890 Other specified postprocedural states
CPT/HCPCS: 71046

== ENCOUNTER 2018-12-26 08:50 | Inpatient (IN) | payer MEDICARE ==
[2018-12-26] MEDS ORDERED: Cefepime 2 GM VIAL ONE (09:31)
[2018-12-26] MEDS ORDERED: Piperacillin/Tazobactam 4.5 GM VIAL ONE (09:31)
[2018-12-26] MEDS ORDERED: Acetaminophen 325 MG/10.15 ML UDCUP ONE (09:32)
[2018-12-26] MEDS ORDERED: Acetaminophen 325 MG TAB ONE (09:33)
--- NOTE | 2018-12-26 09:48 | RAD ---
FRONTAL RADIOGRAPH CHEST PORTABLE UPRIGHT: DATE: 12/26/2018. COMPARISON: 12/12/2018. HISTORY: Non-Hodgkin's lymphoma, right-sided chest pain, prior drainage procedure of right lung. FINDINGS: Stable right-sided chest tube. Pneumothorax on either side. Stable CT injectable right Port-A-Cath. Persistent dense opacity in the left base suggesting left lower lobe consolidation/collapse and lef t pleural fluid. Mild hazy density in the right base suggests a combination of airspace disease, vol ume loss, and pleural fluid. IMPRESSION: Stable right chest tube without evidence for pneumothorax. Hazy bibasilar pleural and parenchymal op acity, left greater than right, not significantly changed.+ POS: OFF
[2018-12-26 09:54] LABS: ALT (SGPT) 12 U/L (8-55); AST (SGOT) 11 U/L (5-34); Albumin 3.3 g/dL (3.4-4.8); Alkaline Phosphatase 60 U/L (40-150); Anion Gap 14 mmol/L (10-20); BUN (Urea Nitrogen) 26 mg/dL (9.8-20.1); Bilirubin, Total 0.6 mg/dL (0.2-1.2); Calc. Creatinine Clearance 0 mL/min (70-130); Carbon Dioxide 23 mmol/L (23-31); Chloride 104 mmol/L (98-107); Estimated GFR-MDRD 39; Globulin 1.8 g/dL (2.4-3.5); Glucose 112 mg/dL (83-110); Potassium 4.2 mmol/L (3.5-5.1); Protein, Total 5.1 g/dL (6.0-8.3); Sodium 137 mmol/L (136-145)
[2018-12-26 10:04] LABS: Anisocytosis SLIGHT = 6-15 cells (100X) (0-5/hpf); Hemoglobin 12.3 g/dL (12.0-16.0); MDiff Complete? YES; Mean Corpuscular HGB CONC 34.3 g/dL (32.0-36.0); Mean Corpuscular Hemoglobin 32.6 pg (27.0-31.0); Platelet Count 185 thou/uL (130-400); RBC Distribution Width 15.5 % (11.5-14.5); Red Blood Cell (RBC) Count 3.78 mill/uL (4.20-5.40); White Blood Cell (WBC) Count 0.5 thou/uL (4.8-10.8)
[2018-12-26 12:01] LABS: Bacteria/HPF 4+ HPF (None Seen); Bilirubin Negative (Negative); Blood, Urine Negative (Negative); Clarity Turbid (Clear); Glucose, Urine (Dipstick) Normal (Negative); Leukocyte 75 Leu/uL (Negative); Nitrite Negative (Negative); Protein, Urine (Dipstick) 50 mg/dL (Neg-Trace); RBC/HPF 0-3 HPF (0-3); Squamous Epithelial 21-50 HPF (0-3); Transitional Epithelial 0-3 HPF (None Seen)
[2018-12-26] MEDS ORDERED: Bisacodyl 10 MG SUPP PR PRN (12:20)
[2018-12-26] MEDS ORDERED: Guaifenesin DM 100-10/5 ML UDCUP PO PRN (12:20)
[2018-12-26] MEDS ORDERED: Ondansetron PF 4 MG/2 ML Vial IVP PRN (12:20)
[2018-12-26] MEDS ORDERED: Acetaminophen 325 MG TAB PO PRN (12:20)
[2018-12-26] MEDS ORDERED: Senokot S 8.6-50 MG TAB PO PRN (12:20)
[2018-12-26 13:41] LABS: Lactic Acid 3.5 mmol/L (0.5-2.2)
[2018-12-26 13:45] LABS: Troponin I 0.031 ng/mL (< 0.028)
[2018-12-26] MEDS ORDERED: predniSONE 20 MG TAB PO SCH (15:06)
--- NOTE | 2018-12-26 15:34 | HP ---
REASON FOR ADMISSION: Neutropenic fever, sepsis. HISTORY OF PRESENTING ILLNESS: The patient initially came to ER with complaints of fever. She is on chemotherapy for follicular lymphoma. The patient had received Rituxan, Oncovin, Cytoxan and prednisone during her recent hospitalization. This morning, the patient also started to have labored breathing and was confused. She had trouble finding words. This was witnessed by son and her . They finally called home health agency. The nurse came to check on her and asked them to go to the ER. Yesterday, the home health nurse had drained 125 mL of pleural fluid from her PleurX catheter on the right chest. Currently, she is awake and responds well to verbal questions. She is fairly oriented now. Has no complaints of shortness of breath or chest pain at present. Has some dry cough, but no expectoration. No complaints of urinary frequency or urgency. No complaints of abdominal pain or diarrhea. No sore wounds or ulcers anywhere. She normally ambulates with a rolling walker inside the house freely. PAST MEDICAL AND SURGICAL HISTORY: History of follicular lymphoma, low grade on chemotherapy, PleurX catheter for the right pleura due to recurrent effusion, hypertension, has had priors skin and oral surgeries. She has had a MediPort placed. CURRENT MEDICATIONS: The patient is on Norvasc 5 mg daily, Pulmicort inhaler twice daily, DuoNeb q.4 hourly, Dulera inhaler twice daily, MiraLAX 17 g daily, prednisone 20 mg daily, Ultram p.r.n. for pain. ALLERGIES: NO KNOWN DRUG ALLERGIES. PERSONAL HISTORY: Smokes 1 to 2 cigarettes a day. Does not abuse alcohol or drugs. Ambulates with a walker. FAMILY HISTORY: Both parents in their 80s. Father had history of Parkinson's. CODE STATUS: Full. Power of real estate associate attorney is her and son. The son's name is Sebastián Marr. Number to reach him is [phone]. Please note, the patient was a do not attempt to resuscitate during her last hospitalization, but she has revoked the same at present. REVIEW OF SYSTEMS: CONSTITUTIONAL: Negative for weight loss or gain, ability to conduct usual activities. SKIN: Negative for rash, itching. EYES: Negative for double vision, pain. ENT/MOUTH: Negative for nose bleeding, neck stiffness, pain, tenderness. CARDIOVASCULAR: Negative for palpitations, dyspnea on exertion, orthopnea. RESPIRATORY: Negative for shortness of breath, wheezing, cough, hemoptysis, fever or night sweats. GASTROINTESTINAL: Negative for poor appetite, abdominal pain, heartburn, nausea , vomiting, constipation, or diarrhea. GENITOURINARY: Negative for urgency, frequency, dysuria, nocturia. MUSCULOSKELETAL: Negative for pain, swelling. NEUROLOGIC/PSYCHIATRIC: Negative for anxiety, depression. ALLERGY/IMMUNOLOGIC: Negative for skin rash, bleeding tendency. PHYSICAL EXAMINATION: GENERAL: The patient is an 88-year-old female who is currently not in any acute distress. VITAL SIGNS: Blood pressure on arrival was 88/60, currently 114/76, pulse 110 per minute, respiratory rate 24 per minute on arrival, currently 18 per minute, temperature 97.8 degrees Fahrenheit, saturating 94% on room air. NECK: Supple. No elevated JVD. HEENT: Eyes; extraocular muscles intact. Pupils reacting to light. Oral cavity, mucous membranes are dry. No exudates or congestion. CARDIOVASCULAR: S1 and S2 heard. Regular rhythm. RESPIRATORY: Air entry 1+ bilateral. Scattered rhonchi plus bilateral. ABDOMEN: Soft. Bowel sounds heard. No tenderness, rigidity, or guarding. EXTREMITIES: No peripheral edema or calf tenderness. VASCULAR SYSTEM: Peripheral pulses 1+ bilateral. No ischemic ulcerations or gangrene. CENTRAL NERVOUS SYSTEM: No gross focal deficits noted. The patient is alert, awake, and oriented. Well psychiatric system. The patient's mood is euthymic. No hallucinations or delusions. LABORATORY DATA: EKG done shows normal sinus rhythm at 130 beats per minute. There is frequent PVCs seen. Nonspecific ST-T wave changes are also seen. White count of 0.5, H and H 12 and 35, platelet count is 185, MCV is 95, BUN 26, creatinine 1.28, serum bicarb 23, lactic acid 5.7, serum glucose 112. Liver enzymes are within normal limits. Troponin I 0.03. CK-MB 1.0. Albumin is 3.3. Stat cortisol is 49.30 mcg/dL. UA shows signs of UTI. DIAGNOSTIC DATA: Chest x-ray done shows hazy bibasilar pleural and parenchymal opacity, left greater than right, which is not significantly changed when compared to old one. CLINICAL IMPRESSION AND PLAN: The patient will be admitted to intermediate care unit for sepsis, neutropenic fever, follicular lymphoma, on chemotherapy. Blood and urine cultures will be obtained in the emergency room. We will place her on vancomycin and cefepime. Gentle hydration with normal saline at 50 mL per hour. DuoNeb, Dulera inhaler and Pulmicort nebulization will be given as before. She will be on prednisone 20 mg daily. We will obtain consultation with Dr. Mio Valentine, her oncologist and Dr. Caruso, her human resources technician during her stay here. We will continue to closely monitor her in intermediate care unit and if her blood pressure stabilizes, she can be transferred over to the oncology unit. She has had labile low blood pressures in the emergency room off and on dipping down to 80s per nurse practitioner Ms. Sherine Rubio. Job ID: [id number] [facility]
[2018-12-26] MEDS ORDERED: Prevnar 13-Val Conj/PF 0.5 ML SYRINGE IM ONE (16:00)
[2018-12-26] MEDS: Sodium Chloride 0.9% 1,000 ML IV SCH ×2 (16:24→16:25)
[2018-12-26 17:51] VITALS: BMI 19.8
[2018-12-26] MEDS: Mometasone/Formoterol 120 PUFF INHALER INH SCH (19:26)
[2018-12-26] MEDS: Budesonide 0.5 MG/2 ML NEB NEB SCH (19:30)
[2018-12-26] MEDS: traMADol HCl 50 MG TAB PO PRN (20:10)
[2018-12-26] MEDS: Cefepime 1 GM in Sodium Chloride 0.9% 100 ML IVPB SCH (20:11)
[2018-12-26] MEDS ORDERED: Vancomycin HCl 1 GM in Premix Bag 1 BAG IVPB SCH (21:00)
[2018-12-27] MEDS: Vancomycin HCl 1 GM in Premix Bag 1 BAG IVPB SCH ×3 (00:03→23:00)
[2018-12-27 05:51] LABS: Anion Gap 13 mmol/L (10-20); BUN (Urea Nitrogen) 30 mg/dL (9.8-20.1); Calc. Creatinine Clearance 26 mL/min (70-130); Calcium 7.4 mg/dL (7.8-10.44); Carbon Dioxide 20 mmol/L (23-31); Chloride 106 mmol/L (98-107); Estimated GFR-MDRD 45; Glucose 82 mg/dL (83-110); Potassium 4.8 mmol/L (3.5-5.1); Sodium 134 mmol/L (136-145)
[2018-12-27 06:16] LABS: Band 33 % (5-11); Hemoglobin 10.4 g/dL (12.0-16.0); Lymphocytes 17 % (21-51); MDiff Complete? YES; Mean Corpuscular HGB CONC 33.7 g/dL (32.0-36.0); Mean Corpuscular Hemoglobin 32.7 pg (27.0-31.0); Mean Corpuscular Volume 96.9 fL (78.0-98.0); Mean Platelet Volume 7.1 fL (7.4-10.4); Metamyelocyte 7 % (0-0); Monocytes 36 % (0-10); Myelocyte 1 % (0-0); Neutrophil 6 % (42-75); Platelet Count 166 thou/uL (130-400); RBC Distribution Width 15.5 % (11.5-14.5); Red Blood Cell (RBC) Count 3.18 mill/uL (4.20-5.40); White Blood Cell (WBC) Count 3.5 thou/uL (4.8-10.8)
[2018-12-27] MEDS ORDERED: predniSONE 20 MG TAB PO SCH (08:00)
[2018-12-27] MEDS: Budesonide 0.5 MG/2 ML NEB NEB SCH ×2 (08:09→18:41)
[2018-12-27] MEDS: Mometasone/Formoterol 120 PUFF INHALER INH SCH ×2 (08:10→18:49)
[2018-12-27] MEDS: Sodium Chloride 0.9% 1,000 ML IV SCH ×3 (10:23→22:03)
[2018-12-27] MEDS: Cefepime 1 GM in Sodium Chloride 0.9% 100 ML IVPB SCH ×2 (10:29→21:40)
[2018-12-27] MEDS: predniSONE 20 MG TAB PO SCH (10:29)
[2018-12-27] MEDS: traMADol HCl 50 MG TAB PO PRN (10:34)
--- NOTE | 2018-12-27 12:51 | PDOC.HOSPP ---
- Subjective Encounter Date: 12/27/18 Encounter Time: 08:45 Subjective: feels better, no sob or abd pain - Objective Vital Signs & Weight: Vital Signs (12 hours) Temp Pulse Resp Pulse Ox 12/27/18 11:31 115 H 24 H 97 12/27/18 08:09 108 H 20 96 12/27/18 08:08 108 H 20 96 12/27/18 08:00 97.1 F L 99 12/27/18 03:57 98.5 F 97 Weight Weight 108 lb 0.8 oz Most Recent Monitor Data Heart Rate from ECG 128 NIBP 123/49 NIBP BP-Mean 73 Respiration from ECG 17 SpO2 99 I&O: 12/26/18 12/27/18 12/28/18 06:59 06:59 06:59 Intake Total 1204 Output Total 450 Balance 754 Result Diagrams: 12/27/18 04:49 12/27/18 04:49 Hospitalist ROS - Medication Medications: Active Medications Generic Name Dose Route Start Last Admin Trade Name Freq PRN Reason Stop Dose Admin Albuterol/Ipratropium 3 ml 12/26/18 14:30 12/27/18 11:31 Duoneb NEB 3 ml [id number] POLY Administration Budesonide 0.5 mg 12/26/18 18:30 12/27/18 08:09 Pulmicort Neb Solution NEB 0.5 mg BID-RT POLY Administration Cefepime HCl 1 gm/ Sodium 100 mls @ 200 mls/hr 12/26/18 21:00 12/27/18 10:29 Chloride IVPB 100 mls Q12HR POLY Administration Sodium Chloride 1,000 mls @ 50 mls/hr 12/26/18 12:20 12/27/18 10:23 Normal Saline 0.9% IV 1,000 mls .Q20H POLY Administration Vancomycin HCl 1 gm/ Device 200 mls @ 200 mls/hr 12/26/18 23:59 12/27/18 00: 03 IVPB 200 mls 1200,2359 POLY Administration Mometasone Furoate/Formoterol Fumar 2 puff 12/26/18 18:30 12/27/18 08:10 Dulera 200 Mcg/5 Mcg Inhaler INH 2 puff BID-RT POLY Administration Prednisone 20 mg 12/27/18 08:00 12/27/18 10:29 Prednisone PO 20 mg QAM-WM POLY Administration Tramadol HCl 50 mg 12/26/18 12:20 12/27/18 10:34 Ultram PO 50 mg Q6H PRN Administration Moderate Pain (4-6) - Exam General Appearance: NAD, awake alert Eye: PERRL, anicteric sclera ENT: no oropharyngeal lesions, moist mucosa Neck: supple, no JVD Heart: RRR, no murmur Respiratory: no wheezes, no rales Gastrointestinal: soft, non-tender, non-distended, normal bowel sounds Extremities: no cyanosis, no edema Neurological: CN's grossly intact, no focal deficits Psychiatric: normal affect, A&O x 3 Hosp A/P (1) Sepsis Code(s): A41.9 - SEPSIS, UNSPECIFIED ORGANISM Status: Acute (2) Neutropenic fever Code(s): D70.9 - NEUTROPENIA, UNSPECIFIED; R50.81 - FEVER PRESENTING WITH CONDITIONS CLASSIFIED ELSEWHERE Status: Resolved (3) Lymphoma Status: Chronic Qualifiers: Lymphoma type: non-Hodgkin Non-Hodgkin lymphoma type: follicular (4) Pleural effusion Code(s): J90 - PLEURAL EFFUSION, NOT ELSEWHERE CLASSIFIED Status: Chronic (5) HTN (hypertension) Code(s): I10 - ESSENTIAL (PRIMARY) HYPERTENSION Status: Chronic Qualifiers: (6) UTI (urinary tract infection) Status: Acute Qualifiers: Urinary tract infection type: acute cystitis Hematuria presence: without hematuria Qualified Code(s): N30.00 - Acute cystitis without hematuria - Plan hemostable is on vanc and cefepime nebs dulreagan, pulmicort on prednisone may tx to onc floor wbc is up to 3 this am
[2018-12-27] MEDS ORDERED: Lidocaine 1% (PF) 30 ML VIAL ONE (12:53)
[2018-12-27 14:19] LABS: Pleural Fluid, Protein 2.3 g/dL
[2018-12-27 14:22] LABS: RBC Count-Automated (BF) 60 /cumm; WBC/Nucleated-Auto (BF) 8892 uL
[2018-12-27 14:41] LABS: BF Color Yellow; Body Fluid Source Thoracentesis Fluid; Clarity Cloudy/Turbid (Clear); Tube # EDTA
[2018-12-27 14:47] LABS: BF Segmented Neutrophils 49 %; Cell Count Non Hematic 49 %; Eosinophils 2 %
--- NOTE | 2018-12-27 16:03 | CON ---
DATE OF CONSULTATION: 12/27/2018 SERVICE: Pulmonary Medicine. REASON FOR CONSULTATION: Possible pleural effusion. 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 Ultimately, she had a PleurX catheter placed at the end of last month. She was doing fine for a period of time and her output from the PleurX catheter significantly dropped with each drain. Most recently, she drained three days ago, and put out 125 mL of fluid. Over the last 3 days, she started having increasing constant chest discomfort, which is described as a severe achiness. It hurts more when she takes a deep breath or when she moves. She presented to the Emergency Department because she started having fevers and that pain become much more severe. She denies having any cough or difficulty breathing outside with her pain, nausea, vomiting, diarrhea, or chest discomfort. She is not having any diarrhea. She does not have any hot, red, swollen joints, or new rashes. PAST MEDICAL HISTORY: 1. Lymphoma, status post two cycles of therapy. 2. Malignant pleural effusion. 3. Hypertension. PAST SURGICAL HISTORY: 1. Mediport placement. 2. PleurX catheter placement following thoracentesis on the right. 3. Lymph node biopsy. 4. Skin surgeries, multiple. 5. Oral surgeries. ALLERGIES: NO KNOWN DRUG ALLERGIES. MEDICATIONS: List of her inpatient medications was reviewed. No specific updates were made at this time. FAMILY HISTORY: Noncontributory. SOCIAL HISTORY: She smokes 1 to 2 cigarettes on a daily basis. Denies any alcohol or illicit drugs. She has no exposure to chemicals, dust, asbestos, or tuberculosis. Currently, she has a walker to get around. REVIEW OF SYSTEMS: General, head, ears, eyes, nose, throat, cardiovascular, respiratory, GI, , musculoskeletal, neurologic, and skin are negative except as mentioned in the HPI. PHYSICAL EXAMINATION: VITAL SIGNS: Afebrile, pulse 115, blood pressure 105/52, respirations 20, and saturation 97%, currently on 2 L nasal cannula. GENERAL: The patient is awake and alert, in no apparent distress. After we got her moving, she started having dyspnea, and significant are dyspnea secondary to significant discomfort. She was splinting and taking very shallow breaths. HEENT: Normocephalic and atraumatic. Sclerae white. Conjunctivae pink. Oral mucosa is moist without lesions. LUNGS: Decent air entry. There is no prolonged expiratory phase or wheezing present. Rhonchi are present at the left base. HEART: Normal rate. Regular. ABDOMEN: Soft, nontender, and nondistended. Bowel sounds are positive. MUSCULOSKELETAL: No cyanosis or clubbing. There is no pitting in the bilateral lower extremities. NEUROLOGIC: Grossly nonfocal. LABORATORY DATA: WBC has improved to 3.5. She only has 6% neutrophils, though she has 33% bands. Hemoglobin 10.4 and gently downtrending, platelets 166,000 and stable. Creatinine 1.14 and downtrending. Basic metabolic profile is otherwise unremarkable. Calcium 7.4, troponin is downtrending to 0.031, cortisol 49. Lactate was 3.5, which was downtrending from 5.7. Urinalysis is positive for some white blood cells and bacteria. Significant epithelial cells were present suggesting this may be contamination. Additionally, nitrites are unremarkable. Blood cultures x2, urinalysis are negative to-date. IMAGING: Chest x-ray demonstrates left pleural parenchymal disease, and a right-sided chest tube is in good position. I do not see any effusion on the right and in the right lung. Any significant effusion in the right lung. ASSESSMENT: 1. Severe sepsis, improving. 2. Malignant pleural effusion, status post PleurX catheter placement. 3. Neutropenic fever. 4. Lymphoma, status post two cycles of chemotherapy. DISCUSSION AND PLAN: I did a bedside ultrasound, and there is a very small pocket of free-flowing fluid on the left. The lung behind it is densely atelectatic. My suspicion is that this fluid is filling up that space secondary to her splinting from her right-sided chest discomfort. I looked under the dressing, and expressed a little bit of purulent material from around the PleurX catheter. There is also a small rim of erythema surrounding the catheter site. As such, my suspicion is this may be our source. I will put in a consultation for Dr. Louise to see Ms. Lowery. Her output from this device is dropped off dramatically. Furthermore, she has already had appropriate therapy for the lymphoma. I will send a sample from the PleurX catheter for Gram stain and culture, and also from the purulent material that I could express from the tube. We will need to consider taking this tube out before the end of the hospital stay. Empiric antibiotics will be continued for the time being. Vancomycin and cefepime should be more than adequate to cover what we need. Dr. Caruso will take over for the pulmonary service in the morning as he has a well established relationship with Ms. Lowery. 70 minutes have been devoted to this patient in various activities. I personally reviewed all imaging studies and laboratory data noted within this document. For fifty percent of this time, I was interacting with the patient at the bedside or coordinating care with the care team. For the remainder of the time I was immediately available to the patient in the hospital unit. Job ID: [id number] MTDD
--- NOTE | 2018-12-27 18:10 | CON ---
DATE OF CONSULTATION: HISTORY OF PRESENT ILLNESS: This is an 88-year-old female with lymphoma, recently having a PleurX catheter placed for large right pleural effusion. She evidently became febrile and ill at home, is admitted to the hospital with a white count of 500. Blood cultures were negative. A Gram stain on pleural fluid obtained through the catheter revealed some gram-positive cocci in clusters. She has been draining her pleural fluid on an every other day basis at home obtaining anywhere from 150 to 300 mL with drainage. She received 300 mL of drainage today. Her white count has improved to 3500, and she has had no fever since being in the hospital the past 48 hours on vancomycin and cefepime. She has remained slightly tachycardic. PHYSICAL EXAMINATION: GENERAL: On examination, she is alert, cooperative, in no distress. SKIN: Examination of the skin around her catheter tunnel site reveals no erythema. IMAGING STUDIES: Chest x-ray and CT scan were reviewed. PLAN: At this time, after discussion with Dr. Hough feels that continuous drainage if possible and if not daily drainage for the cath site to minimize fluid accumulations, if she does have an infection would be most appropriate. The catheter can be removed, but once again I feel that antibiotics and pleural drainage maybe the best approach if indeed she does have an infected pleural effusion. Job ID: [id number]
--- NOTE | 2018-12-28 01:47 | CON ---
DATE OF CONSULTATION: 12/27/2018 REASON FOR CONSULTATION: Lymphoma. 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 Patient was very confused the other night and her family had her home health nurse evaluate her and told them to bring her to the ER. She was found to have a urinary tract infection and is currently on antibiotics, and feeling much better. Patient is currently lucid and does not appear confused at all. White blood cells are 0.5 on admission, but trended up to 3.5. She continues to use a drain to PleurX catheter for drainage and her breathing is overall stable. She denies any other specific complaints at this time. REVIEW OF SYSTEMS: Ten-point review of systems negative, except as per HPI. PAST MEDICAL HISTORY: Follicular lymphoma, hypertension, and COPD. PAST SURGICAL HISTORY: PleurX and MediPort placement. MEDICATIONS: Her medications are reviewed. ALLERGIES: NO KNOWN DRUG ALLERGIES. SOCIAL HISTORY: No alcohol or drugs. Smokes 1 to 2 cigarettes per day. PHYSICAL EXAMINATION: VITAL SIGNS: Temperature 98.2, saturating 100% on 3 L by nasal cannula, blood pressure 95/59 up to 128/59, and pulse 97 to 115. GENERAL: Patient is sitting up in bed, in no acute distress. HEENT: Normocephalic and atraumatic, currently with breathing treatment mask on. NECK: Supple. CARDIOVASCULAR: S1 and S2. Mild tachycardia. RESPIRATIONS: Decreased breath sounds in the bases, right greater than left. ABDOMEN: Soft, nondistended, and nontender. NEUROLOGIC: There are no focal signs. PSYCHIATRIC: Awake, alert, and oriented x3. LABORATORY DATA: White blood 0.5 up to 3.5, hemoglobin 12.3 down to 10.4, and platelets 166. Sodium 134, BUN 30, and creatinine 1.14. Lactic acid 3.5. Urinalysis; large leukocyte esterase and 4+ bacteria. Urine culture is pending. ASSESSMENT AND PLAN: An 88-year-old female with low-grade follicular lymphoma, currently on R-CVP chemotherapy, status post one cycle presenting to the hospital with sepsis from urinary tract infection and altered mental status with dramatic improvement in her symptoms thus far. Dr. Hough and Dr. Louise have been consulted about her Pleurx catheter and I will defer management to them. White blood cells low secondary to chemotherapy, and she did receive Neulasta and has begun to recover. We will continue to treat with antibiotics. We will await urine culture and sensitivities. Give IV fluids for acute kidney injury. We will follow along with you. Thank you for the consult. Job ID: [id number] MTDD
[2018-12-28] MEDS: Budesonide 0.5 MG/2 ML NEB NEB SCH ×3 (06:20→21:56)
[2018-12-28] MEDS: Mometasone/Formoterol 120 PUFF INHALER INH SCH ×3 (06:23→21:56)
[2018-12-28] MEDS: traMADol HCl 50 MG TAB PO PRN ×2 (07:50→08:16)
[2018-12-28] MEDS ORDERED: Fentanyl 100 MCG/2 ML VIAL SLOW IVP SCH (08:15)
--- NOTE | 2018-12-28 08:54 | RAD ---
PORTABLE CHEST ONE VIEW: HISTORY: Respiratory insufficiency. Follow up shortness of breath. COMPARISON: 12/26/2018 FINDINGS: Right central line. Right-sided chest tube. Cardiomegaly with vascular congestion and bilateral ple ural effusions. IMPRESSION: Stable examination. POS: CESIA
[2018-12-28] MEDS: predniSONE 20 MG TAB PO SCH (09:17)
[2018-12-28] MEDS: Cefepime 1 GM in Sodium Chloride 0.9% 100 ML IVPB SCH ×2 (09:48→21:23)
--- NOTE | 2018-12-28 10:25 | PDOC.MOPN ---
Interval History: Breathing improved. Pain controlled. - Vital Signs Vital Signs: Vital Signs (12 hours) Temp Pulse Resp BP Pulse Ox 12/28/18 07:35 97.8 F 110 H 22 H 148/67 H 92 L 12/28/18 06:23 96 16 93 L 12/28/18 06:22 96 18 93 L 12/28/18 06:20 96 18 93 L 12/28/18 04:00 97.3 F L 101 H 20 125/69 95 12/28/18 02:15 75 18 95 12/27/18 23:31 97.4 F L 110 H 20 166/89 H 94 L Weight Admit Weight 108 lb 0.8 oz Weight 108 lb 0.8 oz Most Recent Monitor Data Heart Rate from ECG 104 NIBP 128/59 NIBP BP-Mean 82 Respiration from ECG 13 SpO2 100 - Physical Exam General: Alert, Oriented x3, No acute distress HEENT: Atraumatic, PERRLA, EOMI, Mucous membr. moist/pink Lungs: Other (CT drainage) Cardiovascular: Regular rate, Normal S1, Normal S2, No murmurs, Gallops, Rubs Abdomen: Normal bowel sounds, Soft, No tenderness, No hepatospenomegaly, No masses Extremities: No clubbing, No cyanosis, No edema, Normal pulses, No tenderness/ swelling Skin: No rashes, No breakdown, No significant lesion Neurological: Normal gait, Normal speech, Strength at 5/5 X4 ext, Normal tone, Sensation intact, Cranial nerves 3-12 NL, Reflexes 2+ Psych/Mental Status: Mental status NL, Mood NL - Labs Result Diagrams: 12/27/18 04:49 12/27/18 04:49 Lab results: Laboratory Results - last 24 hr 12/27/18 13:28: Fluid Source Thoracentesis Fluid, Fluid Tube Number EDTA, Fluid Color Yellow, Fluid Clarity Cloudy/Turbid H, Fluid WBC 8892, Fluid RBC 60, Fluid Seg Neutrophil % 49, Fluid Eosinophils % 2, Fluid Diff Path Review , Non- Hematological % 49, Fluid Comment Note: 12/27/18 13:28: Fluid Triglycerides 381, Pleural Total Protein 2.3, Pleural LDH 752, Pleural Glucose 52 12/27/18 12:32: Fluid pH 7.5 Status: lab reviewed by me A/P - Problem (1) UTI (urinary tract infection) Current Visit: Yes Status: Acute Qualifiers: Urinary tract infection type: acute cystitis Hematuria presence: without hematuria Qualified Code(s): N30.00 - Acute cystitis without hematuria (2) Non-Hodgkin lymphoma Current Visit: No Code(s): C85.90 - NON-HODGKIN LYMPHOMA, UNSPECIFIED, UNSPECIFIED SITE Status: Acute Qualifiers: 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
[2018-12-28 11:37] LABS: Vancomycin, Trough 35.5 ug/mL
--- NOTE | 2018-12-28 11:52 | PDOC.HOSPP ---
- Subjective Encounter Date: 12/28/18 Encounter Time: 11:15 Subjective: no chest wall pain now, had severe pain post pl fluid drainage had 600ml yellowish white fluid removed this am from right pleuryx cath is on vanc and cefepime (to hold vanc for now) cbc, cmp in am to amb as tolerated continue prednisone, nebs, dulera inh is on R-CVP regimen for follicular lymphoma (1 cycle has been done) - Objective Vital Signs & Weight: Vital Signs (12 hours) Temp Pulse Resp BP Pulse Ox 12/28/18 10:48 91 18 99 12/28/18 07:35 97.8 F 110 H 22 H 148/67 H 92 L 12/28/18 06:23 96 16 93 L 12/28/18 06:22 96 18 93 L 12/28/18 06:20 96 18 93 L 12/28/18 04:00 97.3 F L 101 H 20 125/69 95 12/28/18 02:15 75 18 95 Weight Admit Weight 108 lb 0.8 oz Weight 108 lb 0.8 oz Most Recent Monitor Data Heart Rate from ECG 104 NIBP 128/59 NIBP BP-Mean 82 Respiration from ECG 13 SpO2 100 I&O: 12/27/18 12/28/18 12/29/18 06:59 06:59 06:59 Intake Total 1204 1180 Output Total 450 650 Balance 754 530 Result Diagrams: 12/27/18 04:49 12/27/18 04:49 Hospitalist ROS - Medication Medications: Active Medications Generic Name Dose Route Start Last Admin Trade Name Freq PRN Reason Stop Dose Admin Albuterol/Ipratropium 3 ml 12/26/18 14:30 12/28/18 10:48 Duoneb NEB 3 ml [id number] POLY Administration Budesonide 0.5 mg 12/26/18 18:30 12/28/18 06:20 Pulmicort Neb Solution NEB 0.5 mg BID-RT POLY Administration Cefepime HCl 1 gm/ Sodium 100 mls @ 200 mls/hr 12/26/18 21:00 12/28/18 09:48 Chloride IVPB 100 mls Q12HR POLY Administration Sodium Chloride 1,000 mls @ 50 mls/hr 12/26/18 12:20 12/27/18 22:03 Normal Saline 0.9% IV 1,000 mls .Q20H POLY Administration Vancomycin HCl 1 gm/ Device 200 mls @ 200 mls/hr 12/26/18 23:59 12/27/18 23: 00 IVPB 200 mls 1200,2359 POLY Administration Mometasone Furoate/Formoterol Fumar 2 puff 12/26/18 18:30 12/28/18 06:23 Dulera 200 Mcg/5 Mcg Inhaler INH 2 puff BID-RT POLY Administration Prednisone 20 mg 12/27/18 08:00 12/28/18 09:17 Prednisone PO 20 mg QAM-WM POLY Administration Tramadol HCl 50 mg 12/26/18 12:20 12/28/18 08:16 Ultram PO 50 mg Q6H PRN Administration Moderate Pain (4-6) Hosp A/P (1) Sepsis Code(s): A41.9 - SEPSIS, UNSPECIFIED ORGANISM Status: Acute (2) Neutropenic fever Code(s): D70.9 - NEUTROPENIA, UNSPECIFIED; R50.81 - FEVER PRESENTING WITH CONDITIONS CLASSIFIED ELSEWHERE Status: Resolved (3) Lymphoma Status: Chronic Qualifiers: Lymphoma type: non-Hodgkin Non-Hodgkin lymphoma type: follicular (4) Pleural effusion Code(s): J90 - PLEURAL EFFUSION, NOT ELSEWHERE CLASSIFIED Status: Chronic (5) HTN (hypertension) Code(s): I10 - ESSENTIAL (PRIMARY) HYPERTENSION Status: Chronic Qualifiers: (6) UTI (urinary tract infection) Status: Acute Qualifiers: Urinary tract infection type: acute cystitis Hematuria presence: without hematuria Qualified Code(s): N30.00 - Acute cystitis without hematuria - Plan hemostable is on vanc and cefepime [place] pulmicort on prednisone may tx to onc floor wbc is up to 3 this am
--- NOTE | 2018-12-28 12:17 | PRG ---
DATE OF SERVICE: 12/28/2018 SUBJECTIVE: Shalini Lowery is an 88-year-old female admitted with neutropenia status post chemotherapy for malignant lymphoma. This morning, she is better. OBJECTIVE: VITAL SIGNS: Temperature 97, pulse 110, respiratory rate 22, saturations 98% on room air, and blood pressure 140/67. CHEST: Decreased breath sounds. No wheezing. CARDIAC: Normal S1 and S2. No gallops. ABDOMEN: No masses. Pleural effusion appears to be chylous like before with a triglyceride of 381. 600 mL of fluid was removed. ASSESSMENT AND PLAN: 1. Malignant lymphoma, bilateral pleural effusion, right greater than left. 2. Right tunneled catheter. 3. Staph aureus ,pleural fluid culture , Staph aureus is probably more than likely coming from the chest wall space, numbers of the pleural effusion are not suggestive of empyema. In the meantime, we will continue antibiotics. We will discuss with Dr. Louise. Continue supportive care. Job ID: [id number] MTDD
[2018-12-29 06:29] LABS: Anion Gap 12 mmol/L (10-20); BUN (Urea Nitrogen) 29 mg/dL (9.8-20.1); Calc. Creatinine Clearance 36 mL/min (70-130); Calcium 7.9 mg/dL (7.8-10.44); Carbon Dioxide 21 mmol/L (23-31); Chloride 109 mmol/L (98-107); Estimated GFR-MDRD 64; Glucose 87 mg/dL (83-110); Potassium 4.6 mmol/L (3.5-5.1); Sodium 137 mmol/L (136-145)
[2018-12-29] MEDS ORDERED: Morphine 2 MG/ML SYRINGE SLOW IVP PRN (06:55)
[2018-12-29 07:25] LABS: Mean Corpuscular HGB CONC 32.9 g/dL (32.0-36.0); Mean Corpuscular Hemoglobin 31.8 pg (27.0-31.0); Mean Corpuscular Volume 96.6 fL (78.0-98.0); Mean Platelet Volume 7.4 fL (7.4-10.4); Platelet Count 261 thou/uL (130-400); RBC Distribution Width 15.6 % (11.5-14.5); Red Blood Cell (RBC) Count 3.45 mill/uL (4.20-5.40); White Blood Cell (WBC) Count 26.4 thou/uL (4.8-10.8)
[2018-12-29] MEDS: Budesonide 0.5 MG/2 ML NEB NEB SCH ×2 (07:31→18:54)
[2018-12-29] MEDS: Mometasone/Formoterol 120 PUFF INHALER INH SCH ×2 (07:33→18:55)
[2018-12-29 08:05] LABS: Band 29 % (5-11); Lymphocytes 3 % (21-51); MDiff Complete? YES; Monocytes 4 % (0-10); Myelocyte 1 % (0-0); Neutrophil 63 % (42-75); Platelet Morphology Comment Appears Adequate; Polychromasia SLIGHT = 2-3 cells (100X) (0-2/hpf)
[2018-12-29] MEDS: predniSONE 20 MG TAB PO SCH (08:44)
--- NOTE | 2018-12-29 10:12 | PRG ---
DATE OF SERVICE: 12/29/2018 SUBJECTIVE: Shalini Lowery is an 88-year-old female. This morning, she is awake, alert, responsive, in no distress. OBJECTIVE: VITAL SIGNS: Saturations 92% on 2 L, pulse 89, respiratory rate 18, and blood pressure 130/80. CHEST: No wheezing or crackles. CARDIAC: Normal S1 and S2. No gallops. ABDOMEN: No masses. LABORATORY DATA: White count 26,000, hemoglobin and hematocrit 9 and 30, platelet count is normal. Electrolytes are normal. IMPRESSION: Staphylococcus aureus in pleural fluid, no evidence of any empyema. PLAN: I would continue present drainage. Do not remove the tube. White count is up to 26,000 again with 29 bands, which I am surprised. Hemoglobin and hematocrit are stable. Neutropenia is resolved. Renal function normal. DISPOSITION: Home in the next 24 to 48 hours. She remains stable. Job ID: [id number]
[2018-12-29] MEDS ORDERED: Vancomycin HCl 750 MG in Sodium Chloride 0.9% 250 ML 250 ML IVPB SCH (12:00)
--- NOTE | 2018-12-29 12:10 | PDOC.HOSPP ---
- Subjective Encounter Date: 12/29/18 Encounter Time: 11:30 Subjective: no chest pain or sob feels better says will amb with walking program later today - Objective Vital Signs & Weight: Vital Signs (12 hours) Temp Pulse Resp BP Pulse Ox 12/29/18 08:00 97.3 F L 99 18 147/67 H 96 12/29/18 07:33 89 18 96 12/29/18 07:32 89 18 96 12/29/18 07:31 89 18 96 12/29/18 03:39 97.6 F 97 20 115/58 L 98 Weight Admit Weight 108 lb 0.8 oz Weight 108 lb 0.8 oz Most Recent Monitor Data Heart Rate from ECG 104 NIBP 128/59 NIBP BP-Mean 82 Respiration from ECG 13 SpO2 100 I&O: 12/28/18 12/29/18 12/30/18 06:59 06:59 06:59 Intake Total 1180 1460 Output Total 650 1050 Balance 530 410 Result Diagrams: 12/29/18 05:49 12/29/18 05:49 Hospitalist ROS - Medication Medications: Active Medications Generic Name Dose Route Start Last Admin Trade Name Freq PRN Reason Stop Dose Admin Albuterol/Ipratropium 3 ml 12/28/18 19:00 12/29/18 07:32 Duoneb NEB 3 ml [id number] POLY Administration Budesonide 0.5 mg 12/26/18 18:30 12/29/18 07:31 Pulmicort Neb Solution NEB 0.5 mg BID-RT POLY Administration Mometasone Furoate/Formoterol Fumar 2 puff 12/26/18 18:30 12/29/18 07:33 Dulera 200 Mcg/5 Mcg Inhaler INH 2 puff BID-RT POLY Administration Prednisone 20 mg 12/27/18 08:00 12/29/18 08:44 Prednisone PO 20 mg QAM-WM POLY Administration Tramadol HCl 50 mg 12/26/18 12:20 12/28/18 08:16 Ultram PO 50 mg Q6H PRN Administration Moderate Pain (4-6) - Exam General Appearance: awake alert Eye: PERRL, anicteric sclera ENT: no oropharyngeal lesions, moist mucosa Neck: supple, no JVD Heart: RRR, no murmur Respiratory: no wheezes, no rales Respiratory - other findings: right chest tube/pleuryx cath to water seal Gastrointestinal: soft, non-tender, non-distended, normal bowel sounds Extremities: no cyanosis, no edema Neurological: CN's grossly intact, no focal deficits Psychiatric: normal affect, A&O x 3 Hosp A/P (1) Sepsis Code(s): A41.9 - SEPSIS, UNSPECIFIED ORGANISM Status: Acute (2) Neutropenic fever Code(s): D70.9 - NEUTROPENIA, UNSPECIFIED; R50.81 - FEVER PRESENTING WITH CONDITIONS CLASSIFIED ELSEWHERE Status: Resolved (3) Lymphoma Status: Chronic Qualifiers: Lymphoma type: non-Hodgkin Non-Hodgkin lymphoma type: follicular (4) Pleural effusion Code(s): J90 - PLEURAL EFFUSION, NOT ELSEWHERE CLASSIFIED Status: Chronic (5) HTN (hypertension) Code(s): I10 - ESSENTIAL (PRIMARY) HYPERTENSION Status: Chronic Qualifiers: (6) UTI (urinary tract infection) Status: Acute Qualifiers: Urinary tract infection type: acute cystitis Hematuria presence: without hematuria Qualified Code(s): N30.00 - Acute cystitis without hematuria - Plan hemostable staph sensitive to levaquin nebs, dulera, pulmicort on prednisone, also recieved neupogen, elevated wbc likely sec to that needs to ambulate in hallway as tolerated dc plan per pulm/cts adv still has pleural drainage which is cloudy yellow next cycle of chemo to start this wednesday
--- NOTE | 2018-12-29 12:20 | RAD ---
EXAM: Single view of the chest HISTORY: Empyema COMPARISON: 12/28/2018 FINDINGS: Single view of the chest shows an enlarged but stable cardiomediastinal silhouette. The ri ght chest tube and Mediport are unchanged in position. There is a questionable small right apical pneumothorax. There is no evidence of consolidation, mass, or pleural effusion. The bones are unrema rkable. IMPRESSION: Possible small right apical pneumothorax
--- NOTE | 2018-12-29 12:27 | PQF ---
SALLY AHUMADA, MANE HUGGINS MD [id number] CLINICAL DOCUMENTATION IMPROVEMENT CLARIFICATION FORM: ICD-10 Updated PLEASE DO AN ADDENDUM TO THE PROGRESS NOTE WITH ANY DOCUMENTATION UPDATES OR ADDITIONS AND CARRY THROUGH TO DC SUMMARY. THANK YOU. DATE: 12/29/2018 ATTN:DR. Dave DIANA Please exercise your independent, professional judgment in responding to the clarification form. Clinical indicators are provided on the bottom of this form for your review. Please check appropriate box(s): [ ] Acute Respiratory Failure: [ ] with Hypoxia[ ] with Hypercapnia [x ] Acute On Chronic Respiratory Failure: [x ] with Hypoxia [ ] with Hypercapnia [ ] Acute Respiratory Failure due to: (etiology) Malignant Pleural Effusions [ ] Other diagnosis [ ] Unable to determine In addition, please specify: Present on Admission (POA): [ x ] Yes [ ] No [ ] Unable to determine For continuity of documentation, please document condition throughout progress notes and discharge summary. Thank You. CLINICAL INDICATORS - SIGNS / SYMPTOMS / LABS 12/26 ED : PHYSICIAN REPORT// HPI CHIEF COMPLAINT: PATIENT PRESENTS FOR EVALUATION OF SHORTNESS OF BREATH,HX OF NON HODGKIN LYMPHOMA. O2 SATS 94-99% RA > 96-100% 2L/NC 12/27 CONSULT ( YUNG) ASSESSMENT: 2). MALIGNANT PLEURAL EFFUSION, STATUS POST PLEUR X CATHETER PLACEMENT RISK: CURRENT TOBACCO USE, HX OF NON-HODGKINS LYMPHOMA (H&P/ [facility]BRON) 12/26 DX MALIGNANT PLEURAL EFFUSIONS( CONSULT /YUNG) 12/27 TREATMENTS: PULMONOLOGY CONSULT ( YUNG/ 12/27) SUPPLEMENTAL OXYGEN (12/26-PRESENT) THANK YOU! STEVE (This form is maintained as a part of the permanent medical record) 2014 [employer] All Rights Reserved JAVID [email or web address] [phone] [email or web address]
--- NOTE | 2018-12-29 13:01 | PQF ---
SALLY AHUMADA, MANE HUGGINS MD [id number] CLINICAL DOCUMENTATION IMPROVEMENT CLARIFICATION FORM: ICD-10 Updated PLEASE DO AN ADDENDUM TO THE PROGRESS NOTE WITH ANY DOCUMENTATION UPDATES OR ADDITIONS AND CARRY THROUGH TO DC SUMMARY. THANK YOU. DATE: 12/29/2018 ATTN: DR. Vazquez DIANA Please exercise your independent, professional judgment in responding to the clarification form. Clinical indicators are provided on the bottom of this form for your review. Please check appropriate box(es): [ x] Sepsis Due to PleurX Catheter [ ] Sepsis Not Due to PleurX Catheter [ ] Localized infection without sepsis [ x] Other diagnosis ___neutropenic fever and being immunosuppressed due to chemotherapy for lymphoma [ ] Unable to determine In addition, please specify: Present on Admission (POA): [ x ] Yes [ ] No [ ] Unable to determine For continuity of documentation, please document condition throughout progress notes and discharge summary. Thank You. CLINICAL INDICATORS - SIGNS / SYMPTOMS / LABS 12/26 ED PHYSICIAN DX: SEPSIS, JESS, NEUTROPENIC FEVER, NON-HODGKIN LYMPHOMA, HX RLL PLEURAL EFFUSION 12/26 WBC 0.5 12/27 WBC 3.5 / WBC 26.4 12/27 BANDS 33 12/29 BANDS 29 12/26 H&P (LEBRON) IMPRESSION AND PLAN: THE PT WILL BE ADMITTED TI [facility] FOR SEPSIS, NEUTROPENIC FEVER, FOLLICULAR LYMPHOMA, ON CHEMOTHERAPY. BLOOD AND URINE CULTURES WILL BE OBTAINED IN THE EMERGENCY ROOM. WE WILL PLACE HER ON VANCOMYCIN AND CEFEPIME. 12/27 CONSULT (YUNG) PLAN: I LOOKED UNDER THE DRESSING, AND EXPRESSED A LITTLE BIT OF PURULENT MATERIAL FROM AROUND THE PLEURX CATHETER. THERE IS ALSO A SMALL RIM OF ERYTHEMA SURROUNDING THE CATHETER SITE. SUCH, MY SUSPICION IS THIS MAY BE THE SOURCE. 12/28 PN (LEBRON) A/P : 1) SEPSIS, ACUTE, UNSPECIFIED 12/29 PN (WESLEY) STAPHYLOCOCCUS AUREUS IN PLEURAL FLUID, MO EVIDENCE OF ANY EMPYEMA. PLAN: I WOULD CONTINUE PRESENT DRAINAGE. DO NOT REMOVE THE TUBE. RISK: PLEUR X CATHETER PLACEMENT (BRADING/ 12/27) IMMUNOSUPPRESSED ON CHEMOTHERAPY (BRADING/ 12/27) TREATMENTS: VANCOMYCIN IV (12/26-12/27) CEFEPIME IV (12/26-9/4) PLEURAL FLUID CULTURE (12/27) THANK YOU! STEVE (This form is maintained as a part of the permanent medical record) 2014 [employer] All Rights Reserved JAVID [email or web address] [phone] MTDD
[2018-12-30 04:45] LABS: Anion Gap 12 mmol/L (10-20); BUN (Urea Nitrogen) 22 mg/dL (9.8-20.1); Calc. Creatinine Clearance 38 mL/min (70-130); Calcium 8.5 mg/dL (7.8-10.44); Carbon Dioxide 21 mmol/L (23-31); Chloride 110 mmol/L (98-107); Estimated GFR-MDRD 68; Glucose 87 mg/dL (83-110); Potassium 4.9 mmol/L (3.5-5.1); Sodium 138 mmol/L (136-145)
[2018-12-30 04:48] LABS: Band 6 % (5-11); Hemoglobin 11.2 g/dL (12.0-16.0); Lymphocytes 4 % (21-51); MDiff Complete? YES; Mean Corpuscular HGB CONC 32.6 g/dL (32.0-36.0); Mean Corpuscular Hemoglobin 31.5 pg (27.0-31.0); Mean Corpuscular Volume 96.6 fL (78.0-98.0); Mean Platelet Volume 7.2 fL (7.4-10.4); Monocytes 4 % (0-10); Neutrophil 86 % (42-75); Platelet Count 266 thou/uL (130-400); Platelet Morphology Comment Appears Adequate; RBC Distribution Width 15.7 % (11.5-14.5); RBC Morphology Normal; Red Blood Cell (RBC) Count 3.55 mill/uL (4.20-5.40); White Blood Cell (WBC) Count 19.7 thou/uL (4.8-10.8)
[2018-12-30] MEDS: Mometasone/Formoterol 120 PUFF INHALER INH SCH ×2 (07:23→18:22)
[2018-12-30] MEDS: Budesonide 0.5 MG/2 ML NEB NEB SCH ×2 (07:27→18:21)
--- NOTE | 2018-12-30 08:15 | PDOC.MOPN ---
Interval History: Date: 12/29/2018 Pt feeling well. Her pleural drain is currently draining yellow fluid. Her breathing is much improved. - Vital Signs Vital Signs: Vital Signs (12 hours) Pulse Resp Pulse Ox 12/30/18 07:27 98 12/30/18 07:26 82 20 98 12/30/18 07:23 82 20 98 12/30/18 00:18 82 20 98 12/29/18 20:30 98 Weight Admit Weight 108 lb 0.8 oz Weight 108 lb 0.8 oz Most Recent Monitor Data Heart Rate from ECG 104 NIBP 128/59 NIBP BP-Mean 82 Respiration from ECG 13 SpO2 100 - Physical Exam General: Alert, Oriented x3, Cooperative, No acute distress HEENT: Atraumatic Lungs: Other (decreased BS on right) Cardiovascular: Regular rate, Normal S1, Normal S2 Abdomen: Soft, No tenderness Neurological: Normal speech Psych/Mental Status: Mental status NL - Labs Result Diagrams: 12/30/18 04:12 12/30/18 04:12 Lab results: Laboratory Results - last 24 hr 12/30/18 04:12: WBC 19.7 H, RBC 3.55 L, Hgb 11.2 L, Hct 34.3 L, MCV 96.6, MCH 31.5 H, MCHC 32.6, RDW 15.7 H, Plt Count 266, MPV 7.2 L, Neutrophils % (Manual) 86 H, Band Neuts % (Manual) 6, Lymphocytes % (Manual) 4 L, Monocytes % (Manual) 4, Plt Morphology Comment Appears Adequate, RBC Morph Comment Normal 12/30/18 04:12: Sodium 138, Potassium 4.9, Chloride 110 H, Carbon Dioxide 21 L, Anion Gap 12, BUN 22 H, Creatinine 0.80, Estimated GFR (MDRD) 68, Glucose 87, Calcium 8.5 A/P - Problem (1) UTI (urinary tract infection) Current Visit: Yes Status: Acute Qualifiers: Urinary tract infection type: acute cystitis Hematuria presence: without hematuria Qualified Code(s): N30.00 - Acute cystitis without hematuria (2) Neutropenic fever Current Visit: Yes Code(s): D70.9 - NEUTROPENIA, UNSPECIFIED; R50.81 - FEVER PRESENTING WITH CONDITIONS CLASSIFIED ELSEWHERE Status: Resolved (3) Non-Hodgkin lymphoma Current Visit: No Code(s): C85.90 - NON-HODGKIN LYMPHOMA, UNSPECIFIED, UNSPECIFIED SITE Status: Acute Qualifiers: 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
[2018-12-30] MEDS: predniSONE 20 MG TAB PO SCH (08:48)
[2018-12-30] MEDS ORDERED: predniSONE 20 MG TAB PO SCH (08:56)
[2018-12-30] MEDS ORDERED: predniSONE 5 MG TAB PO SCH (09:00)
--- NOTE | 2018-12-30 09:43 | PRG ---
DATE OF SERVICE: 12/30/2018 SUBJECTIVE: This morning, she is doing better. X-ray yesterday showed stable findings, no pleural effusion, small apical right pneumothorax, and a small effusion on the left side. OBJECTIVE: VITAL SIGNS: 98% saturation, pulse 82, respiratory rate 20, and blood pressure 130/80. CHEST: Decreased breath sounds. No wheezing. CARDIAC: Normal S1 and S2. No gallops. LABORATORY DATA: White count 19,000. Lytes are normal. ASSESSMENT: Malignant lymphoma status post chemotherapy. PLAN: Pulmonary dexter, home any time when okay with Oncology. Continue outpatient drainage. PT and supportive care. Job ID: [id number]
--- NOTE | 2018-12-30 11:23 | PDOC.HOSPP ---
- Subjective Encounter Date: 12/30/18 Encounter Time: 11:15 Subjective: no chest pain or sob feels better is eating well - Objective Vital Signs & Weight: Vital Signs (12 hours) Temp Pulse Resp BP Pulse Ox 12/30/18 08:00 98.4 F 86 20 179/77 H 98 12/30/18 07:27 98 12/30/18 07:26 82 20 98 12/30/18 07:23 82 20 98 12/30/18 00:18 82 20 98 Weight Admit Weight 108 lb 0.8 oz Weight 108 lb 0.8 oz Most Recent Monitor Data Heart Rate from ECG 104 NIBP 128/59 NIBP BP-Mean 82 Respiration from ECG 13 SpO2 100 I&O: 12/29/18 12/30/18 12/31/18 06:59 06:59 06:59 Intake Total 1460 960 Output Total 1050 400 Balance 410 560 Result Diagrams: 12/30/18 04:12 12/30/18 04:12 Hospitalist ROS - Medication Medications: Active Medications Generic Name Dose Route Start Last Admin Trade Name Freq PRN Reason Stop Dose Admin Albuterol/Ipratropium 3 ml 12/28/18 19:00 12/30/18 07:26 Duoneb NEB 3 ml [id number] POLY Administration Budesonide 0.5 mg 12/26/18 18:30 12/30/18 07:27 Pulmicort Neb Solution NEB 0.5 mg BID-RT POLY Administration Levofloxacin 500 mg 12/30/18 06:00 12/30/18 06:06 Levaquin PO 500 mg 0600 POLY Administration Mometasone Furoate/Formoterol Fumar 2 puff 12/26/18 18:30 12/30/18 07:23 Dulera 200 Mcg/5 Mcg Inhaler INH 2 puff BID-RT POLY Administration Tramadol HCl 50 mg 12/26/18 12:20 12/28/18 08:16 Ultram PO 50 mg Q6H PRN Administration Moderate Pain (4-6) - Exam General Appearance: NAD, awake alert Eye: PERRL, anicteric sclera ENT: no oropharyngeal lesions, moist mucosa Neck: supple, no JVD Heart: RRR, no murmur Respiratory: no wheezes, no rales Respiratory - other findings: pleuryx cath in underwater seal Gastrointestinal: soft, non-tender, normal bowel sounds Extremities: no clubbing, no edema Neurological: CN's grossly intact, no focal deficits Psychiatric: normal affect, A&O x 3 Hosp A/P (1) Sepsis Code(s): A41.9 - SEPSIS, UNSPECIFIED ORGANISM Status: Resolved Qualifiers: Sepsis type: methicillin susceptible Staphylococcus aureus Severe sepsis shock status: without septic shock (2) Neutropenic fever Code(s): D70.9 - NEUTROPENIA, UNSPECIFIED; R50.81 - FEVER PRESENTING WITH CONDITIONS CLASSIFIED ELSEWHERE Status: Resolved (3) Lymphoma Status: Chronic Qualifiers: Lymphoma type: non-Hodgkin Non-Hodgkin lymphoma type: follicular (4) Pleural effusion Code(s): J90 - PLEURAL EFFUSION, NOT ELSEWHERE CLASSIFIED Status: Chronic (5) HTN (hypertension) Code(s): I10 - ESSENTIAL (PRIMARY) HYPERTENSION Status: Chronic Qualifiers: (6) UTI (urinary tract infection) Status: Acute Qualifiers: Urinary tract infection type: acute cystitis Hematuria presence: without hematuria Qualified Code(s): N30.00 - Acute cystitis without hematuria - Plan hemostable staph sensitive to levaquin nebs, dulera, pulmicort on prednisone, also recieved neupogen. Wbc is downtrending now. needs to ambulate in hallway as tolerated dc plan per pulm/cts adv, she needs to ambulate yet. still has pleural drainage which is cloudy yellow next cycle of chemo to start this wednesday
--- NOTE | 2018-12-30 14:22 | PDOC.MOPN ---
Interval History: sleeping - Vital Signs Vital Signs: Vital Signs (12 hours) Temp Pulse Resp BP Pulse Ox 12/30/18 13:14 105 H 20 99 12/30/18 08:00 98.4 F 86 20 179/77 H 98 12/30/18 07:27 98 12/30/18 07:26 82 20 98 12/30/18 07:23 82 20 98 Weight Admit Weight 108 lb 0.8 oz Weight 108 lb 0.8 oz Most Recent Monitor Data Heart Rate from ECG 104 NIBP 128/59 NIBP BP-Mean 82 Respiration from ECG 13 SpO2 100 - Physical Exam General: Alert, Oriented x3, No acute distress HEENT: Atraumatic, PERRLA, EOMI, Mucous membr. moist/pink Lungs: Other (right pleurx to suction) Cardiovascular: Regular rate, Normal S1, Normal S2, No murmurs, Gallops, Rubs Abdomen: Normal bowel sounds, Soft, No tenderness, No hepatospenomegaly, No masses Extremities: No clubbing, No cyanosis, No edema, Normal pulses, No tenderness/ swelling Skin: No rashes, No breakdown, No significant lesion Neurological: Normal speech Psych/Mental Status: Mental status NL, Mood NL - Labs Result Diagrams: 12/30/18 04:12 12/30/18 04:12 Lab results: Laboratory Results - last 24 hr 12/30/18 04:12: WBC 19.7 H, RBC 3.55 L, Hgb 11.2 L, Hct 34.3 L, MCV 96.6, MCH 31.5 H, MCHC 32.6, RDW 15.7 H, Plt Count 266, MPV 7.2 L, Neutrophils % (Manual) 86 H, Band Neuts % (Manual) 6, Lymphocytes % (Manual) 4 L, Monocytes % (Manual) 4, Plt Morphology Comment Appears Adequate, RBC Morph Comment Normal 12/30/18 04:12: Sodium 138, Potassium 4.9, Chloride 110 H, Carbon Dioxide 21 L, Anion Gap 12, BUN 22 H, Creatinine 0.80, Estimated GFR (MDRD) 68, Glucose 87, Calcium 8.5 Status: lab reviewed by me A/P - Problem (1) UTI (urinary tract infection) Current Visit: Yes Status: Acute Qualifiers: Urinary tract infection type: acute cystitis Hematuria presence: without hematuria Qualified Code(s): N30.00 - Acute cystitis without hematuria (2) Non-Hodgkin lymphoma Current Visit: No Code(s): C85.90 - NON-HODGKIN LYMPHOMA, UNSPECIFIED, UNSPECIFIED SITE Status: Acute Qualifiers: 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
[2018-12-31] MEDS: Mometasone/Formoterol 120 PUFF INHALER INH SCH ×2 (07:02→18:55)
[2018-12-31] MEDS: Budesonide 0.5 MG/2 ML NEB NEB SCH ×2 (07:05→18:55)
[2018-12-31] MEDS: predniSONE 5 MG TAB PO SCH (10:34)
[2018-12-31 12:45] LABS: Hemoglobin 11.5 g/dL (12.0-16.0); Mean Corpuscular HGB CONC 33.3 g/dL (32.0-36.0); Mean Corpuscular Hemoglobin 31.9 pg (27.0-31.0); Mean Corpuscular Volume 95.9 fL (78.0-98.0); Platelet Count 243 thou/uL (130-400); RBC Distribution Width 15.7 % (11.5-14.5); Red Blood Cell (RBC) Count 3.61 mill/uL (4.20-5.40); White Blood Cell (WBC) Count 20.4 thou/uL (4.8-10.8)
[2018-12-31 13:04] LABS: Anion Gap 10 mmol/L (10-20); BUN (Urea Nitrogen) 23 mg/dL (9.8-20.1); Calc. Creatinine Clearance 36 mL/min (70-130); Carbon Dioxide 25 mmol/L (23-31); Chloride 106 mmol/L (98-107); Estimated GFR-MDRD 65; Glucose 70 mg/dL (83-110); Sodium 137 mmol/L (136-145)
[2018-12-31 13:18] LABS: Anisocytosis SLIGHT = 6-15 cells (100X) (0-5/hpf); Band 11 % (5-11); Eosinophils 1 % (0-10); Lymphocytes 1 % (21-51); MDiff Complete? YES; Metamyelocyte 9 % (0-0); Monocytes 4 % (0-10); Myelocyte 8 % (0-0); Neutrophil 64 % (42-75); Platelet Morphology Comment Appears Adequate; Polychromasia SLIGHT = 2-3 cells (100X) (0-2/hpf); Promyelocytes 1 % (0-0); Reactive Lymphocytes 1 % (0-10); Vacuoles SLIGHT
--- NOTE | 2018-12-31 13:23 | PRG ---
DATE OF SERVICE: 12/31/2018 SUBJECTIVE: The patient is doing well. She wants to go home. She had no acute complaints. OBJECTIVE: VITAL SIGNS: Temperature is 98.3, pulse 78, respirations 18, O2 saturation 93%, and blood pressure 177/81. HEENT: Unremarkable. NECK: No adenopathy or JVD. CHEST: Clear to auscultation. CARDIAC: S1 and S2, regular. ABDOMEN: Soft. EXTREMITIES: No edema. 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 PLAN: PleurX drainage at home. She should be stable to go home at any time. No further recommendations at this time. Job ID: [id number]
--- NOTE | 2018-12-31 18:00 | PDOC.HOSPP ---
- Subjective Encounter Date: 12/31/18 Encounter Time: 17:59 Subjective: Pt seen for followup re: pleural effusion. feels better. - Objective Vital Signs & Weight: Vital Signs (12 hours) Temp Pulse Resp BP Pulse Ox 12/31/18 12:39 75 16 92 L 12/31/18 08:33 98.3 F 88 18 177/81 H 93 L 12/31/18 08:00 93 L 12/31/18 07:04 80 16 95 12/31/18 07:02 80 16 97 Weight Admit Weight 108 lb 0.8 oz Weight 108 lb 0.8 oz Most Recent Monitor Data Heart Rate from ECG 104 NIBP 128/59 NIBP BP-Mean 82 Respiration from ECG 13 SpO2 100 I&O: 12/30/18 12/31/18 01/01/19 06:59 06:59 06:59 Intake Total 960 1235 Output Total 400 75 0 Balance 560 1160 0 Result Diagrams: 12/31/18 12:31 12/31/18 12:31 Additional Labs: Labs and MARs reviewed by dc Hospitalist ROS - Review of Systems Cardiovascular: denies: chest pain, palpitations, orthopnea, paroxysmal noc. dyspnea, edema, light headedness Gastrointestinal: denies: nausea, vomitting, abdominal pain, diarrhea, constipation, melena, hematochezia - Medication Medications: Active Medications Generic Name Dose Route Start Last Admin Trade Name Freq PRN Reason Stop Dose Admin Albuterol/Ipratropium 3 ml 12/28/18 19:00 12/31/18 12:39 Duoneb NEB 3 ml [id number] POLY Administration Budesonide 0.5 mg 12/26/18 18:30 12/31/18 07:05 Pulmicort Neb Solution NEB 0.5 mg BID-RT POLY Administration Levofloxacin 500 mg 12/30/18 06:00 12/31/18 06:26 Levaquin PO 500 mg 0600 POLY Administration Mometasone Furoate/Formoterol Fumar 2 puff 12/26/18 18:30 12/31/18 07:02 Dulera 200 Mcg/5 Mcg Inhaler INH 2 puff BID-RT POLY Administration Prednisone 10 mg 12/31/18 08:00 12/31/18 10:34 Prednisone PO 10 mg QAM-WM POLY Administration Sodium Chloride 10 ml 12/30/18 09:00 12/31/18 10:34 Flush - Normal Saline IVF 10 ml Q12HR POLY Administration Tramadol HCl 50 mg 12/26/18 12:20 12/28/18 08:16 Ultram PO 50 mg Q6H PRN Administration Moderate Pain (4-6) - Exam General Appearance: NAD Eye: anicteric sclera ENT: moist mucosa Neck: supple Heart: RRR Respiratory: CTAB, no rales Respiratory - other findings: R PleurX catheter Gastrointestinal: soft, non-tender Skin: no rashes Musculoskeletal: normal strength Psychiatric: normal affect, normal behavior Hosp A/P (1) Pleural effusion Code(s): J90 - PLEURAL EFFUSION, NOT ELSEWHERE CLASSIFIED Status: Chronic (2) Non-Hodgkin lymphoma Code(s): C85.90 - NON-HODGKIN LYMPHOMA, UNSPECIFIED, UNSPECIFIED SITE Status: Chronic Qualifiers: 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 Awaiting HH arrangements. Likely home tomorrow.
--- NOTE | 2018-12-31 23:17 | EKG ---
Test Reason : Blood Pressure : / mmHG Vent. Rate : 130 BPM Atrial Rate : 064 BPM P-R Int : 000 ms QRS Dur : 062 ms QT Int : 406 ms P-R-T Axes : 068 046 033 degrees QTc Int : 597 ms Sinus rhythm with frequent , and consecutive Premature ventricular complexes and Fusion complexes Nonspecific ST and T wave abnormality Abnormal ECG Confirmed by ESTEVAN OCHOA ([id number]), editor at large MANPREET SHEIKH ([id number]) on 12/31/2018 11:16:48 PM Referred By: Confirmed By:ESTEVAN OCHOA
[2019-01-01 04:20] LABS: Anion Gap 9 mmol/L (10-20); BUN (Urea Nitrogen) 25 mg/dL (9.8-20.1); Calc. Creatinine Clearance 37 mL/min (70-130); Calcium 9.8 mg/dL (7.8-10.44); Carbon Dioxide 29 mmol/L (23-31); Chloride 105 mmol/L (98-107); Estimated GFR-MDRD 67; Glucose 95 mg/dL (83-110); Potassium 4.6 mmol/L (3.5-5.1); Sodium 138 mmol/L (136-145)
[2019-01-01 04:33] LABS: Band 2 % (5-11); Lymphocytes 12 % (21-51); MDiff Complete? YES; Mean Corpuscular Volume 96.8 fL (78.0-98.0); Mean Platelet Volume 7.1 fL (7.4-10.4); Monocytes 4 % (0-10); Neutrophil 82 % (42-75); Platelet Count 273 thou/uL (130-400); Platelet Morphology Comment Appears Adequate; RBC Distribution Width 15.6 % (11.5-14.5); RBC Morphology Normal; Red Blood Cell (RBC) Count 3.75 mill/uL (4.20-5.40)
[2019-01-01] MEDS: Mometasone/Formoterol 120 PUFF INHALER INH SCH (07:29)
[2019-01-01] MEDS: Budesonide 0.5 MG/2 ML NEB NEB SCH (07:31)
[2019-01-01] MEDS: predniSONE 5 MG TAB PO SCH (08:50)
[2019-01-01 12:23] VITALS: BP 109/63; TEMP 98.2
--- NOTE | 2019-01-01 14:00 | PRG ---
DATE OF SERVICE: 01/01/2019 SUBJECTIVE: The patient is feeling well. No complaints. OBJECTIVE: VITAL SIGNS: On exam, temperature is 98.2, pulse 88, respirations 16, and O2 saturation 95%. HEENT: Unremarkable. NECK: No JVD. LUNGS: Fairly diminished breath sounds at right base, left side clear. CARDIAC: S1 and S2. Regular. ABDOMEN: Soft. EXTREMITIES: No edema. ASSESSMENT: Right pleural effusion - malignant from lymphoma. PLAN: She should be going home today with vacuum bottles and a PleurX drainage catheter. No further recommendations at this time. Job ID: [id number]
--- NOTE | 2019-01-01 14:51 | DIS ---
DATE OF ADMISSION: 12/26/2018 DATE OF DISCHARGE: 01/01/2019 PRIMARY CARE PROVIDER: Zeny Pascual MD DISCHARGE DIAGNOSES: 1. Sepsis. 2. Neutropenic fever. 3. Urinary tract infection. 4. Right-sided pleural effusion. 5. Staphylococcus aureus infection in the right pleural effusion. CONDITION OF PATIENT ON THE DAY OF DISCHARGE: Stable. I assessed Ms. Lowery on the day of discharge. She denies any chest pain or shortness of breath. Vital signs are stable. S1 and S2 are heard, regular. Lungs are clear to auscultation bilaterally. CONSULTATIONS DURING THIS HOSPITALIZATION: Pulmonary and Critical Care Medicine, Dr. Hough; Cardiovascular Surgery, Dr. Louise; Oncology, Dr. Valentine. HOSPITAL COURSE: Ms. Lowery is a pleasant 88-year-old lady, who was admitted to [facility] for sepsis and neutropenic fever on December 26, 2018. Please refer to Dr. Jain's history and physical note dated December 26, 2018, for further details. She was seen by Cardiovascular Surgery, Oncology, and Pulmonary and Critical Care Medicine Services. She was treated with intravenous antibiotics. Right-sided pleural fluid culture showed atypical lymphoid population. The pleural fluid culture grew Staphylococcus aureus that was resistant to piperacillin and amoxicillin, but was otherwise pansensitive. She was also treated for urinary tract infection, although final urine cultures showed mixed skin lori. Final blood cultures were negative. She was seen by Cardiovascular Surgery for management of PleurX catheter. She has been cleared for discharge by all consulting services. FOLLOWUP APPOINTMENTS: The patient has chemotherapy scheduled on January 04. She is also advised to follow up with her primary care provider in 3 to 5 days. LABORATORY DATA: On the day of discharge, she has white count of 23,000, hemoglobin 12, platelet count 273,000. Normal sodium, normal potassium, elevated blood urea nitrogen of 25, and normal creatinine. DISCHARGE MEDICATIONS: 1. Prednisone 20 mg daily. 2. Levofloxacin 500 mg daily for 7 more days. 3. Amlodipine 5 mg daily. Many thanks for allowing me to participate in your patient's care. Please feel free to contact me with any questions or concerns. DISCHARGE DESTINATION: Home. TIME SPENT: Total amount of time spent coordinating this discharge: 32 minutes. Job ID: [id number]
== END 2019-01-01 16:10 | disposition home health service (06) | DRG 919 ==
LOC: ERS 08:50 → IMCU/EMU 11:44 → ONC 12-27 19:48
PROVIDERS: ADMIT Internal Medicine; ATTEND Internal Medicine
DX: T85.79XA Infection and inflammatory reaction due to other internal prosthetic devices, implants and grafts, initial encounter (principal); J96.21 Acute and chronic respiratory failure with hypoxia; R65.20 Severe sepsis without septic shock; A41.01 Sepsis due to Methicillin susceptible Staphylococcus aureus; C82.90 Follicular lymphoma, unspecified, unspecified site; J91.0 Malignant pleural effusion; N30.00 Acute cystitis without hematuria; Z16.11 Resistance to penicillins; D70.9 Neutropenia, unspecified; R50.81 Fever presenting with conditions classified elsewhere; I10 Essential (primary) hypertension; Z79.52 Long term (current) use of systemic steroids; Z79.899 Other long term (current) drug therapy; F17.210 Nicotine dependence, cigarettes, uncomplicated; J44.9 Chronic obstructive pulmonary disease, unspecified; Y84.8 Other medical procedures as the cause of abnormal reaction of the patient, or of later complication, without mention of misadventure at the time of the procedure
CPT/HCPCS: 36415; 71045; 80048; 80053; 80202; 81003; 81015; 82533; 82553; 82945; 83605; 83615; 83986; 84157; 84478; 84484; 85025; 85060; 87040; 87070; 87077; 87086; 87186; 87205; 88112; 88305; 89051; 93005; 94640; 94664; 94760; 96365; 96366; 96367; 96375; J0692; J2001; J2543; J3010; J3370; J3490; J7512; J7620; J7626

== ENCOUNTER 2019-01-17 13:09 | Outpatient (CLI) | payer MEDICARE ==
--- NOTE | 2019-01-17 13:47 | RAD ---
EXAM: CHEST TWO VIEWS: 01/17/19 HISTORY: Malignant pleural effusion. COMPARISON: 01/06/19. FINDINGS: Bilateral pleural effusions including some fluid within the right pleural fissures. Heart size is wit hin upper range of normal limits. Right central line injection port. No residual significant pneumoth orax. IMPRESSION: Bilateral pleural effusions. No significant pneumothorax. No new process. POS: OFF
== END 2019-01-17 13:10 | disposition home or self-care (01) ==
LOC: RAD 13:09
PROVIDERS: ATTEND Thoracic Surgery (Cardiothoracic Vascular Surgery)
DX: J91.0 Malignant pleural effusion (principal)
CPT/HCPCS: 71046

== ENCOUNTER 2019-02-03 08:17 | Outpatient (CLI) | payer MEDICARE, OTHER ==
--- NOTE | 2019-02-03 11:16 | PET ---
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 COMPARISON: CT exams 01/03/2019 and 11/10/2018. FINDINGS: Physiologic uptake within the enteric system and along each urinary tract. Significant musc ular uptake at the biceps brachii and posterior shoulder girdle musculature and along the posterior paraspinal musculature. Degenerative type uptake of the cervical spine. The enlarged, necrotic subcarinal lymph node shows a maximum SUV of 2.2. No reliably hypermetabolic l esions are apparent within the mediastinum or within the retroperitoneum. Maximum SUV associated with the remaining lower para-aortic retroperitoneal lymphoid tissue is 1.6. The nondiagnostic CT attenuation correction images show prominent arterial calcification. Large amoun t right pleural fluid and bibasilar atelectasis remain. Left pleural fluid has decreased. Hyperdense stones in the gallbladder lumen. Significant interval decrease in size of confluent lymph tissue of the retroperitoneum. IMPRESSION: No residual hypermetabolic disease. Atherosclerosis. Cholelithiasis.
== END 2019-02-03 08:18 | disposition home or self-care (01) ==
LOC: PET 08:17
PROVIDERS: ATTEND Internal Medicine Hematology & Oncology
DX: C82.19 Follicular lymphoma grade II, extranodal and solid organ sites (principal); K80.20 Calculus of gallbladder without cholecystitis without obstruction; I70.90 Unspecified atherosclerosis
CPT/HCPCS: 78815; A9552

== ENCOUNTER 2019-03-02 10:39 | Inpatient (IN) | payer MEDICARE, OTHER ==
--- NOTE | 2019-03-02 11:43 | RAD ---
Exam: Chest one view: HISTORY: Shortness of breath COMPARISON: 01/17/2019 FINDINGS: Right subclavian catheter injection port. Persistent bilateral pleural effusions. The previous noted fluid in the major fissure on the right side has markedly improved. Bony demineralization. Old granulomatous disease. No pneumothorax or acute pulmonary parenchymal process. IMPRESSION: Persistent bilateral pleural effusions with resolution of the previously noted fluid in the right jin or fissure. Stable chronic lung changes. Stable bony demineralization. No significant new process.
[2019-03-02 12:19] LABS: ALT (SGPT) 11 U/L (8-55); AST (SGOT) 12 U/L (5-34); Albumin 3.2 g/dL (3.4-4.8); Alkaline Phosphatase 69 U/L (40-110); Anion Gap 13 mmol/L (10-20); BUN (Urea Nitrogen) 15 mg/dL (9.8-20.1); Bilirubin, Total 0.5 mg/dL (0.2-1.2); Calc. Creatinine Clearance 0 mL/min (70-130); Carbon Dioxide 26 mmol/L (23-31); Chloride 98 mmol/L (98-107); Estimated GFR-MDRD 51; Globulin 2.3 g/dL (2.4-3.5); Glucose 100 mg/dL (83-110); Hemoglobin 9.2 g/dL (12.0-16.0); Mean Corpuscular HGB CONC 32.5 g/dL (32.0-36.0); Mean Corpuscular Hemoglobin 29.9 pg (27.0-31.0); Potassium 4.4 mmol/L (3.5-5.1); Protein, Total 5.5 g/dL (6.0-8.3); RBC Distribution Width 15.6 % (11.5-14.5); Red Blood Cell (RBC) Count 3.08 mill/uL (4.20-5.40); Sodium 133 mmol/L (136-145); White Blood Cell (WBC) Count 1.1 thou/uL (4.8-10.8)
[2019-03-02 12:36] LABS: Band 16 % (5-11); Elliptocytes SLIGHT = 2-5 cells (100X) (0-1/hpf); Eosinophils 1 % (0-10); Lymphocytes 6 % (21-51); MDiff Complete? YES; Mean Platelet Volume 7.2 fL (7.4-10.4); Monocytes 22 % (0-10); Neutrophil 54 % (42-75); Ovalocytes SLIGHT = 2-5 cells (100X) (0-1/hpf); Platelet Count 184 thou/uL (130-400); Platelet Morphology Comment Appears Adequate; Polychromasia SLIGHT = 2-3 cells (100X) (0-2/hpf); Reactive Lymphocytes 1 % (0-10); Tear Drops SLIGHT = 2-5 cells (100X) (0-1/hpf)
--- NOTE | 2019-03-02 14:57 | CT ---
EXAM: CT angiogram of the chest including 3-D rendering: HISTORY: Chest pain COMPARISON: Chest CT, 01/03/2019 FINDINGS: There is adequate opacification of the pulmonary arteries. No evidence for aortic aneurysm or dissection. No convincing CT evidence for acute pulmonary embolism. Scattered bilateral mostly lower lobe pleural-based parenchymal changes evidence for partial atelecta sis. Small stable oblong 0.3 x 0.6 cm nodular focus in the right upper lobe. Stable subcarinal lymphadenopathy up to 2.9 cm. Decreasing bilateral pleural effusions and minimal decreasing pericardial effusion. The visualized upper abdomen is unremarkable. IMPRESSION: No convincing CT evidence for acute pulmonary embolism. Bilateral pleural effusions and pericardial effusion showing improvement from prior study. No signifi cant new process.
[2019-03-02] MEDS ORDERED: Iopamidol-370 76% 500 ML 1 ML ONE (15:57)
--- NOTE | 2019-03-02 17:01 | HP ---
PRIMARY CARE PHYSICIAN: Dr. Zeny Pascual. PRIMARY ONCOLOGIST: Dr. Valentine. REASON FOR ADMISSION: Hypoxemia. HISTORY OF PRESENT ILLNESS: An 88-year-old female who lives at home with her . 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 Last chemotherapy was about 10 days ago, but the patient is not sure, but the patient reports that since then, she is feeling more and more weak, exhausted. She gets dyspnea on exertion. She feels fatigued, tired. She denies any fever or chills, but she does report one time loose stool, but she does not have any watery diarrhea ongoing. She denies any abdominal pain. She denies any pleuritic chest pain. She denies any shortness of breath. She has intermittent cough. She denies any sore throat or recent upper respiratory infection. In the emergency room, the patient was found hypoxic. Her oxygen saturation was running in 80s to 90s without oxygen, and with oxygen she was feeling normal. She had CT angiography, PE protocol, which was negative for PE and pleural effusion found on both side as well as pericardial effusion was found, but it was improved compared to whatever it was in the past. The patient denies any UTI symptoms. She denies any melena or hematochezia. She denies any fall. She denies any headache. PAST MEDICAL HISTORY: Follicular lymphoma, on chemotherapy; history of pleural effusion, right side, recurrent, required PleurX catheter; hypertension. PAST SURGICAL HISTORY: PleurX catheter placement, MediPort placement, skin surgery, and oral surgery. PAST PSYCHIATRIC HISTORY: Reviewed and negative. CURRENT HOME MEDICATIONS: Breo Ellipta one inhalation daily. ALLERGIES: NO KNOWN DRUG ALLERGIES. SOCIAL HISTORY: The patient has history of smoking about one or two cigarettes daily. She denies any alcohol abuse. She lives at home with her . She ambulates with a walker and cane. FAMILY HISTORY: Both parents in their 80s. Father had history of Parkinson disease. CODE STATUS: The patient is full code. The patient's son and is surrogate decision maker. REVIEW OF SYSTEMS: CONSTITUTIONAL: Negative for weight loss or gain, ability to conduct usual activities. SKIN: Negative for rash, itching. EYES: Negative for double vision, pain. ENT/MOUTH: Negative for nose bleeding, neck stiffness, pain, tenderness. CARDIOVASCULAR: Negative for palpitations, dyspnea on exertion, orthopnea. RESPIRATORY: Negative for shortness of breath, wheezing, cough, hemoptysis, fever or night sweats. GASTROINTESTINAL: Negative for poor appetite, abdominal pain, heartburn, nausea , vomiting, constipation, or diarrhea. GENITOURINARY: Negative for urgency, frequency, dysuria, nocturia. MUSCULOSKELETAL: Negative for pain, swelling. NEUROLOGIC/PSYCHIATRIC: Negative for anxiety, depression. ALLERGY/IMMUNOLOGIC: Negative for skin rash, bleeding tendency. Please see my HPI for pertinent positives and negatives. All other review of systems reviewed and negative except as mentioned in the HPI. EMERGENCY ROOM COURSE: Reviewed. PHYSICAL EXAMINATION: VITAL SIGNS: Currently, blood pressure 165/97, pulse 88, respiratory rate 24, temperature 98.7, saturation 99% on 2 L. Weight 56.7 kg. GENERAL: The patient is currently alert, awake, appears weak. No obvious acute distress. HEENT: Head; normocephalic, atraumatic. Eyes; pupils round, reactive to light. Extraocular muscle intact. ENT: Oropharynx within normal limits. Moist mucous membranes. No oral lesion. No pharyngeal erythema. No exudate. NECK: Supple. No JVD. No thyromegaly. No carotid bruit. LUNGS: Bibasilar rales noted. Air entry reduced at base. No wheezing. No accessory muscles of respiration in use. CARDIAC: S1, S2 regular. No murmur. No gallop. No rub. ABDOMEN: Soft. Bowel sounds present. Nontender. Nondistended. No organomegaly. No mass. No suprapubic tenderness. BACK: Unremarkable. No CVA tenderness. EXTREMITIES: Upper extremities, passive movement of all joints are normal. Lower extremity, no edema. Good distal pulsation. Chronic skin changes noted. SKIN: No skin rash other than chronic changes noted. PSYCHIATRIC: Normal affect. NEUROLOGIC: Nonfocal examination. SIGNIFICANT LABORATORY DATA: EKG showing normal sinus rhythm, nonspecific ST-T changes. Q-wave in lead V1, V2 and V3. CT angiography reported as no evidence of pulmonary embolism. Bilateral pleural effusion and pericardial effusion improving from previous. No acute process. CBC; WBC 1.1, hemoglobin 9.2, platelet 184, bandemia. BMP; sodium 133, potassium 4.4, chloride 98, carbon dioxide 26, anion gap 13, BUN 15, creatinine 1.02, glucose 100, calcium 9.0. LFT; AST 12, ALT 11, alkaline phosphatase 69, albumin 3.2. BNP 206.3. Stat troponin negative. Previous echocardiography showed EF 55% to 60% and small to moderate pericardial effusion. ASSESSMENT AND PLAN: 1. Acute hypoxic respiratory failure. The patient has bilateral pleural effusion and trace pericardial effusion. The patient does not have any pericardial tamponade physiology based on clinical assessment. The patient has improvement of bilateral pleural effusion compared to recent past. The patient's EF is normal. I am suspecting given elevated BNP and elevated high blood pressure and the patient is not taking blood pressure medication. 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 At this point, the patient will need a 6 minute walk test and if she qualify for home oxygen, then she will need home oxygen arrangement before discharge. We will admit her to hospital. We will also give her dose of Lasix 40 mg IV one time dose _ b.i.d. 2. Bicytopenia. The patient has leukopenia and anemia likely due to chemotherapy side effects. The patient will be kept on neutropenic precaution. 3. Elevated BNP. The patient already had echocardiography recently done, so no need of repeating echocardiography. 4. Hypertension. We will start amlodipine 5 mg p.o. daily and is continuing with the Lasix. 5. History of lymphoma. We will consult Oncology for evaluation during this admission. 6. Deep venous thrombosis prophylaxis, Lovenox 40 mg subcu daily. GI prophylaxis, Pepcid 20 mg p.o. b.i.d. CODE STATUS: The patient is full code, that was confirmed with the patient. DISPOSITION PLAN: Based on clinical course, we are expecting the patient's stay in hospital more than 2 midnights. Plan of care discussed with the patient in detail. Job ID: [id number] [facility]
[2019-03-02] MEDS ORDERED: Zolpidem Tartrate 5 MG TAB PO PRN (17:23)
[2019-03-02] MEDS ORDERED: Ondansetron ODT 4 MG TAB PO PRN (17:23)
[2019-03-02] MEDS ORDERED: Acetaminophen 325 MG TAB PO PRN (17:23)
[2019-03-02] MEDS ORDERED: Senokot S 8.6-50 MG TAB PO PRN (17:23)
[2019-03-02] MEDS ORDERED: hydrALAZINE 20 MG/ML VIAL SLOW IVP PRN (17:23)
[2019-03-02] MEDS ORDERED: Calcium Carbonate 500 MG ChewTAB PO PRN (17:23)
[2019-03-02] MEDS ORDERED: HYDROcodone/Acetaminophen 5/325 mg Tablet PO PRN (17:23)
[2019-03-02] MEDS ORDERED: Loperamide HCl 2 MG CAP PO PRN (17:23)
[2019-03-02] MEDS ORDERED: Diabetic Tussin 200 MG/10 ML UDCUP PO PRN (17:23)
[2019-03-02] MEDS ORDERED: Cepastat Lozenges 1 LOZ PO PRN (17:23)
[2019-03-02] MEDS ORDERED: Loratadine 10 MG TAB PO PRN (17:23)
[2019-03-02] MEDS ORDERED: Ondansetron PF 4 MG/2 ML Vial IVP PRN (17:23)
[2019-03-02] MEDS ORDERED: Sodium Chloride 0.65% Nasal 44 ML BOT EA NARE PRN (17:23)
[2019-03-02 18:42] VITALS: BMI 22.8
[2019-03-02 19:30] LABS: Troponin I 0.024 ng/mL (< 0.028)
[2019-03-02 20:05] LABS: Bacteria/HPF None Seen HPF (None Seen); Bilirubin Negative (Negative); Blood, Urine Negative (Negative); Clarity Clear (Clear); Glucose, Urine (Dipstick) Normal (Negative); Leukocyte Negative Leu/uL (Negative); Nitrite Negative (Negative); Protein, Urine (Dipstick) 10 mg/dL (Neg-Trace); RBC/HPF 0-3 HPF (0-3); Squamous Epithelial 0-3 HPF (0-3); Urobilinogen Normal mg/dL (Less than 2); WBC/HPF 0-3 HPF (0-3)
[2019-03-02] MEDS: Famotidine 20 MG TAB PO SCH (20:43)
[2019-03-03] MEDS ORDERED: cloNIDine 0.1 MG TAB PO PRN (00:25)
[2019-03-03] MEDS: Furosemide 40 MG/4 ML VIAL SLOW IVP SCH ×2 (06:29→13:10)
[2019-03-03 06:31] LABS: ALT (SGPT) 10 U/L (8-55); AST (SGOT) 11 U/L (5-34); Albumin 2.5 g/dL (3.4-4.8); Alkaline Phosphatase 58 U/L (40-110); Anion Gap 9 mmol/L (10-20); BUN (Urea Nitrogen) 15 mg/dL (9.8-20.1); Bilirubin, Total 0.3 mg/dL (0.2-1.2); Calc. Creatinine Clearance 37 mL/min (70-130); Calcium 8.2 mg/dL (7.8-10.44); Carbon Dioxide 28 mmol/L (23-31); Chloride 102 mmol/L (98-107); Estimated GFR-MDRD 56; Globulin 2.1 g/dL (2.4-3.5); Glucose 95 mg/dL (83-110); Hemoglobin 7.7 g/dL (12.0-16.0); Mean Corpuscular HGB CONC 33.2 g/dL (32.0-36.0); Mean Corpuscular Hemoglobin 30.4 pg (27.0-31.0); Mean Corpuscular Volume 91.4 fL (78.0-98.0); Mean Platelet Volume 7.4 fL (7.4-10.4); Platelet Count 202 thou/uL (130-400); Potassium 4.4 mmol/L (3.5-5.1); Protein, Total 4.6 g/dL (6.0-8.3); RBC Distribution Width 15.9 % (11.5-14.5); Red Blood Cell (RBC) Count 2.52 mill/uL (4.20-5.40); Sodium 135 mmol/L (136-145); White Blood Cell (WBC) Count 0.7 thou/uL (4.8-10.8)
[2019-03-03 06:43] LABS: Eosinophils 8 % (0-10); Lymphocytes 8 % (21-51); MDiff Complete? YES; Monocytes 28 % (0-10); Neutrophil 56 % (42-75); Platelet Morphology Comment Appears Adequate; Spherocytes SLIGHT = 1-5 cells (100X) (None Seen)
[2019-03-03] MEDS ORDERED: Amlodipine 5 MG TAB PO SCH (09:00)
[2019-03-03] MEDS: Amlodipine 10 MG TAB PO SCH (09:00)
[2019-03-03] MEDS: Enoxaparin Sodium 40 MG/0.4 ML SYRINGE SC SCH (09:00)
[2019-03-03] MEDS: Famotidine 20 MG TAB PO SCH (09:00)
[2019-03-03] MEDS ORDERED: Furosemide 40 MG/4 ML VIAL SLOW IVP SCH (09:30)
--- NOTE | 2019-03-03 09:58 | PDOC.HOSPP ---
- Subjective Encounter Date: 03/03/19 Encounter Time: 07:15 Subjective: Patient seen and examined. No new complaints. No overnight events, pt is very weak, still oxygen level is low - Objective Vital Signs & Weight: Vital Signs (12 hours) Temp Pulse Resp BP BP Pulse Ox 03/03/19 09:00 83 03/03/19 08:00 92 L 03/03/19 04:00 98.1 F 83 16 140/74 94 L 03/03/19 01:40 151/78 H 03/03/19 00:44 198/78 H 03/03/19 00:14 99.6 F 94 16 198/78 H 93 L Weight Weight 125 lb 0.034 oz I&O: 03/02/19 03/03/19 03/04/19 06:59 06:59 06:59 Intake Total 240 Balance 240 Result Diagrams: 03/03/19 05:53 03/03/19 05:53 Hospitalist ROS - Review of Systems Constitutional: reports: weakness, malaise. denies: fever, chills, sweats, other Eyes: denies: pain, vision change, conjunctivae inflammation, eyelid inflammation, redness, other ENT: denies: ear pain, ear discharge, nose pain, nose discharge, nose congestion , mouth pain, mouth swelling, throat pain, throat swelling, other Respiratory: reports: SOB with excertion. denies: cough, dry, shortness of breath, hemoptysis, pleuritic pain, sputum, wheezing, other Cardiovascular: denies: chest pain, palpitations, orthopnea, paroxysmal noc. dyspnea, edema, light headedness, other Gastrointestinal: denies: nausea, vomiting, abdominal pain, diarrhea, constipation, melena, hematochezia, other Genitourinary: denies: dysuria, frequency, incontinence, hematuria, retention, other Musculoskeletal: denies: neck pain, shoulder pain, arm pain, back pain, hand pain, leg pain, foot pain, other Skin: denies: rash, lesions, andie, bruising, other - Medication Medications: Active Medications Generic Name Dose Route Start Last Admin Trade Name Freq PRN Reason Stop Dose Admin Amlodipine Besylate 10 mg 03/03/19 09:00 03/03/19 09:00 Norvasc PO 10 mg DAILY POLY Administration Clonidine 0.1 mg 03/03/19 00:25 03/03/19 00:44 Catapres PO 0.1 mg Q4H PRN Administration SBP > 160; use second Enoxaparin Sodium 40 mg 03/03/19 09:00 03/03/19 09:00 Lovenox SC 40 mg 0900 POLY Administration Famotidine 20 mg 03/02/19 21:00 03/03/19 09:00 Pepcid PO 20 mg BID POLY Administration Furosemide 40 mg 03/03/19 06:00 03/03/19 06:29 Lasix SLOW IVP 40 mg 0600,1400 POLY Administration Hydralazine HCl 10 mg 03/02/19 17:23 03/02/19 20:48 Apresoline SLOW IVP 10 mg Q4H PRN Administration SBP > 180 and HR < 70 - Exam General Appearance: NAD, awake alert, ill appearing Eye: PERRL, anicteric sclera ENT: normocephalic atraumatic, no oropharyngeal lesions Neck: supple, symmetric, no JVD, no thyromegaly Heart: RRR, no murmur, no gallops, no rubs, normal peripheral pulses Respiratory: CTAB, no rales, no ronchi Respiratory - other findings: reduced air entry at base Gastrointestinal: soft, non-tender, non-distended, normal bowel sounds, no palpable masses Extremities: no cyanosis, no clubbing, no edema Skin: normal turgor, no lesions Neurological: cranial nerve grossly intact, normal sensation to touch Musculoskeletal: normal tone, normal strength, no muscle wasting Psychiatric: normal affect, normal behavior Hosp A/P (1) Acute respiratory failure with hypoxia Code(s): J96.01 - ACUTE RESPIRATORY FAILURE WITH HYPOXIA Status: Acute (2) Neutropenia Code(s): D70.9 - NEUTROPENIA, UNSPECIFIED Status: Acute Qualifiers: Neutropenia type: secondary to cancer chemotherapy Qualified Code(s): D70.1 - Agranulocytosis secondary to cancer chemotherapy; T45.1X5A - Adverse effect of antineoplastic and immunosuppressive drugs, initial encounter (3) Symptomatic anemia Code(s): D64.9 - ANEMIA, UNSPECIFIED Status: Acute (4) HTN (hypertension) Code(s): I10 - ESSENTIAL (PRIMARY) HYPERTENSION Status: Chronic Qualifiers: Hypertension type: essential hypertension (5) Lymphoma Status: Chronic Qualifiers: Lymphoma type: non-Hodgkin Non-Hodgkin lymphoma type: follicular Follicular lymphoma grade: unspecified grade Lymphoma site: unspecified region Qualified Code(s): C82.90 - Follicular lymphoma, unspecified, unspecified site (6) Moderate protein malnutrition Code(s): E44.0 - MODERATE PROTEIN-CALORIE MALNUTRITION Status: Chronic (7) Pleural effusion Code(s): J90 - PLEURAL EFFUSION, NOT ELSEWHERE CLASSIFIED Status: Chronic Plan: bilateral pleural effusion, related with lymphoma, as well as diastolic dysfunction, contributing hypoxia - Plan old records reviewed/req, social work therapist 03/03/19- continue lasix for today, agree with blood transfusion today, repeat labs tomorrow, if her oxygen saturation does not improve, will need home oxygen before discharge, today will check oxygen level through finger and ear lobe, on rest and after walking.
[2019-03-03 10:31] LABS: Iron 21 ug/dL (50-170); Iron Binding Capacity, Total 174 mcg/dL (265-497)
[2019-03-03 10:56] LABS: Ferritin 555.9 ng/mL (10-291)
[2019-03-03] MEDS ORDERED: Cyanocobalamin 1000 MCG/ML VIAL IM SCH (12:30)
[2019-03-03] MEDS ORDERED: Iron Sucrose Complex 500 MG in Sodium Chloride 0.9% 250 ML 250 ML IVPB SCH (12:30)
--- NOTE | 2019-03-03 18:31 | CON ---
DATE OF CONSULTATION: REASON FOR CONSULTATION: Lymphoma. HISTORY OF PRESENT ILLNESS: An 88-year-old female with follicular lymphoma involving abdominal hilar and mediastinal lymphadenopathy with a malignant pleural effusion, presenting to the hospital with hypoxemia. The patient was initially diagnosed with lymphoma in October and has received 5 cycles of R-CVP with a very good clinical response and most recent PET scan showed no residual hypermetabolic disease done on 02/03. She last received her 5th cycle of chemotherapy on 02/21. At that time, white blood cells were 12.3, hemoglobin 10.0, and platelets 499. The patient presented to the hospital with worsening shortness of breath and dyspnea on exertion, feeling very tired and fatigued. Denies any nausea, vomiting, diarrhea. In the ER, she was found to be hypoxic with saturation into the 80s without oxygen while lying down and with some clinical improvement once oxygen had been started. She had a CT angio to evaluate for pulmonary embolism and was negative and did show that her bilateral pleural effusions were actually improved from prior and did not show any pneumonia. White blood cells were 1.1 and are currently 0.7, hemoglobin was 9.2 on presentation and is currently dropped to 7.7. Her BNP was mildly elevated at 206 and had been 381 in December. This morning, she states she does feel better after receiving IV Lasix, but still does feel short of breath. She denies any blood in the stool, black stool, or tarry stool. She denies hematuria. REVIEW OF SYSTEMS: Ten-point review of systems is negative except as per HPI. PAST MEDICAL HISTORY: 1. Follicular lymphoma. 2. Pleural effusions. 3. Hypertension. PAST SURGICAL HISTORY: 1. PleurX catheter. 2. MediPort placement. 3. Skin surgery. 4. Oral surgery. CURRENT MEDICATIONS: Reviewed. ALLERGIES: NO KNOWN DRUG ALLERGIES. PHYSICAL EXAMINATION: VITAL SIGNS: Temperature 98.1, pulse 84, respirations 20, saturating 93% on 2 L by nasal cannula, blood pressure 93/54. GENERAL APPEARANCE: The patient is lying in bed, in no acute distress. HEENT: Normocephalic, atraumatic. CARDIOVASCULAR: S1 and S2. Regular rhythm and rate. No murmurs. LUNGS: No accessory muscle use. rhoncours sounds at the bases, but otherwise good air movement. ABDOMEN: Soft, nondistended, and nontender. EXTREMITIES: No edema. SKIN: No rash. NEUROLOGIC: Cranial nerves 2 through 12 are grossly intact. Otherwise, nonfocal examination. PSYCHIATRIC: Awake, alert, oriented x3 with normal affect. LABORATORY DATA: White blood cells 0.7, hemoglobin 7.7, platelets 202. Sodium 135, potassium 4.4, BUN 15, creatinine 0.95, folate 14.9, B12 of 234, iron 21, TIBC 174, iron saturation 12%, ferritin 555. IMAGING DATA: CT angio of the chest shows no PE and improvement in bilateral pleural effusions. ASSESSMENT AND PLAN: An 88-year-old female with stage IV follicular lymphoma, status post 5 cycles of R-CVP with complete response based on PET scan after 4 cycles. Her hypoxia has slightly improved overnight, but does continue and is of unknown cause. This potentially caused from extreme high blood pressure and some diastolic heart failure, given recent normal ejection fraction. Her pleural effusions, which were involved with lymphoma, are actually improved. There is no hypermetabolic activity in these effusions on recent PET scan. She has no pneumonia, UTI, or other signs of infection. Her hemoglobin has dropped substantially to 7.7 and was 10.0 on 02/21. Prior to chemotherapy, she had no anemia. Her anemia could be contributing to her hypoxia and with the acute drop could be secondary to GI bleed, though she denies any symptoms of this. 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 She also has a low normal B12. We will give the patient B12 injection and a dose of Venofer 500 mg and recommend 1 unit PRBC blood transfusion. She is severely neutropenic and is at her ovidio given time since last chemotherapy, though with her high monocyte percentage, I expect in the next couple of days she should start to improve. There is no indication for antibiotics at this time. We will continue to follow along with you. Job ID: [id number] [facility]
[2019-03-04] MEDS: Furosemide 40 MG/4 ML VIAL SLOW IVP SCH ×2 (05:31→13:36)
[2019-03-04 06:28] LABS: Anion Gap 16 mmol/L (10-20); BUN (Urea Nitrogen) 17 mg/dL (9.8-20.1); Calc. Creatinine Clearance 36 mL/min (70-130); Calcium 8.5 mg/dL (7.8-10.44); Carbon Dioxide 26 mmol/L (23-31); Chloride 97 mmol/L (98-107); Estimated GFR-MDRD 54; Glucose 94 mg/dL (83-110); Potassium 3.5 mmol/L (3.5-5.1); Sodium 135 mmol/L (136-145)
[2019-03-04 07:12] LABS: Anisocytosis SLIGHT = 6-15 cells (100X) (0-5/hpf); Hemoglobin 11.1 g/dL (12.0-16.0); MDiff Complete? YES; Mean Corpuscular HGB CONC 30.1 g/dL (32.0-36.0); Mean Corpuscular Hemoglobin 27.2 pg (27.0-31.0); Mean Corpuscular Volume 90.5 fL (78.0-98.0); Mean Platelet Volume 7.3 fL (7.4-10.4); Platelet Count 197 thou/uL (130-400); RBC Distribution Width 16.4 % (11.5-14.5); Red Blood Cell (RBC) Count 4.06 mill/uL (4.20-5.40); White Blood Cell (WBC) Count 0.8 thou/uL (4.8-10.8)
[2019-03-04] MEDS ORDERED: Cefepime 1 GM in Sodium Chloride 0.9% 100 ML IVPB SCH (09:00)
[2019-03-04] MEDS: Enoxaparin Sodium 40 MG/0.4 ML SYRINGE SC SCH (09:54)
[2019-03-04] MEDS: Lisinopril 10 MG TAB PO SCH (09:55)
[2019-03-04] MEDS: Famotidine 20 MG TAB PO SCH (09:55)
[2019-03-04] MEDS: Amlodipine 10 MG TAB PO SCH (09:55)
[2019-03-04] MEDS ORDERED: Vancomycin HCl 1 GM in Sodium Chloride 0.9% 250 ML 250 ML IVPB SCH (10:00)
[2019-03-04] MEDS ORDERED: Vancomycin HCl 1 GM in Premix Bag 1 BAG IVPB SCH (10:00)
--- NOTE | 2019-03-04 10:11 | PDOC.MOPN ---
Interval History: Pt feeling better with more comfortable breathing today. She became dizzy during conversation but after deep breaths this resolved. - Vital Signs Vital Signs: Vital Signs (12 hours) Temp Pulse Ox 03/04/19 07:33 92 L 03/04/19 04:00 98.5 F Weight Admit Weight 125 lb 0.034 oz Weight 125 lb 0.034 oz - Physical Exam General: Alert, Oriented x3, Cooperative Lungs: Clear to auscultation Cardiovascular: Regular rate Abdomen: Soft Extremities: No edema Neurological: Cranial nerves 3-12 NL - Labs Result Diagrams: 03/04/19 06:07 03/04/19 06:07 Lab results: Laboratory Results - last 24 hr 03/04/19 06:07: WBC 0.8 L*, RBC 4.06 L, Hgb 11.1 L, Hct 36.7, MCV 90.5, MCH 27.2 , MCHC 30.1 L, RDW 16.4 H, Plt Count 197, MPV 7.3 L, Neutrophils % (Manual) Not Reportable, Neutrophils # Not Reportable, Lymphocytes # Not Reportable, Anisocytosis SLIGHT = 6-15 cells 03/04/19 06:07: Sodium 135 L, Potassium 3.5, Chloride 97 L, Carbon Dioxide 26, Anion Gap 16, BUN 17, Creatinine 0.97, Estimated GFR (MDRD) 54, Glucose 94, Calcium 8.5 03/03/19 10:00: Ferritin 555.90 H, Vitamin B12 234 03/03/19 09:59: Blood Type O POSITIVE, Antibody Screen NEGATIVE, Crossmatch See Detail 03/03/19 09:59: Iron 21 L, TIBC 174 L, % Saturation 12 L 03/03/19 09:57: Folate 14.90 A/P - Problem (1) Neutropenia Current Visit: Yes Code(s): D70.9 - NEUTROPENIA, UNSPECIFIED Status: Acute Qualifiers: Neutropenia type: secondary to cancer chemotherapy Qualified Code(s): D70.1 - Agranulocytosis secondary to cancer chemotherapy; T45.1X5A - Adverse effect of antineoplastic and immunosuppressive drugs, initial encounter (2) Symptomatic anemia Current Visit: Yes Code(s): D64.9 - ANEMIA, UNSPECIFIED Status: Acute (3) Lymphoma Current Visit: No Status: Chronic Qualifiers: Lymphoma type: non-Hodgkin Non-Hodgkin lymphoma type: follicular Follicular lymphoma grade: unspecified grade Lymphoma site: unspecified region Qualified Code(s): C82.90 - Follicular lymphoma, unspecified, unspecified site (4) Pleural effusion Current Visit: No Code(s): J90 - PLEURAL EFFUSION, NOT ELSEWHERE CLASSIFIED Status: Chronic - Plan Plan: cont Lasix no transfusion indicated today - Hb improved from 7.7 to 11.1 with 1 unit so I expect most of that was dilutional which improved with diuresis monitor neutropenia for recovery - received Neulasta so cannot receive Neupogen dc Vancomycin, cont Cefepime until ANC 1000 titrate off Oxygen as tolerated PT consult
--- NOTE | 2019-03-04 10:17 | PDOC.HOSPP ---
- Subjective Encounter Date: 03/04/19 Encounter Time: 08:00 Subjective: Expresses no complaint. - Objective Vital Signs & Weight: Vital Signs (12 hours) Temp Pulse Ox 03/04/19 07:33 92 L 03/04/19 04:00 98.5 F Weight Admit Weight 125 lb 0.034 oz Weight 125 lb 0.034 oz I&O: 03/03/19 03/04/19 03/05/19 06:59 06:59 06:59 Intake Total 240 1650 100 Output Total 1750 550 Balance 240 -100 -450 Result Diagrams: 03/04/19 06:07 03/04/19 06:07 Hospitalist ROS - Medication Medications: Active Medications Generic Name Dose Route Start Last Admin Trade Name Freq PRN Reason Stop Dose Admin Amlodipine Besylate 10 mg 03/03/19 09:00 03/03/19 09:00 Norvasc PO 10 mg DAILY POLY Administration Clonidine 0.1 mg 03/03/19 00:25 03/03/19 00:44 Catapres PO 0.1 mg Q4H PRN Administration SBP > 160; use second Enoxaparin Sodium 40 mg 03/03/19 09:00 03/03/19 09:00 Lovenox SC 40 mg 0900 POLY Administration Furosemide 40 mg 03/03/19 06:00 03/04/19 05:31 Lasix SLOW IVP 40 mg 0600,1400 POLY Administration Hydralazine HCl 10 mg 03/02/19 17:23 03/02/19 20:48 Apresoline SLOW IVP 10 mg Q4H PRN Administration SBP > 180 and HR < 70 Sodium Chloride 10 ml 03/03/19 21:00 03/03/19 20:46 Flush - Normal Saline IVF 10 ml Q12HR POLY Administration - Exam General Appearance: NAD Neck: no JVD Heart: RRR Respiratory: CTAB Gastrointestinal: soft Extremities: no edema Neurological: no weakness Hosp A/P (1) Lymphoma Status: Acute (2) Pleural effusion Code(s): J90 - PLEURAL EFFUSION, NOT ELSEWHERE CLASSIFIED Status: Acute Plan: Secondary to lymphoma. (3) Neutropenia Code(s): D70.9 - NEUTROPENIA, UNSPECIFIED Status: Acute Qualifiers: Neutropenia type: secondary to cancer chemotherapy Qualified Code(s): D70.1 - Agranulocytosis secondary to cancer chemotherapy; T45.1X5A - Adverse effect of antineoplastic and immunosuppressive drugs, initial encounter (4) Symptomatic anemia Code(s): D64.9 - ANEMIA, UNSPECIFIED Status: Acute Plan: s/p transfusion.. (5) Acute respiratory failure with hypoxia Code(s): J96.01 - ACUTE RESPIRATORY FAILURE WITH HYPOXIA Status: Acute (6) HTN (hypertension) Code(s): I10 - ESSENTIAL (PRIMARY) HYPERTENSION Status: Chronic Qualifiers: Hypertension type: essential hypertension - Plan Start on broad spectrum antibiotics in view o severe neutropenia... Long acting granulocyte stimuling factor was given as outpatient.. F/u WBC
[2019-03-05] MEDS: Furosemide 40 MG/4 ML VIAL SLOW IVP SCH ×2 (06:20→16:33)
[2019-03-05] MEDS: Cefepime 1 GM in Sodium Chloride 0.9% 100 ML IVPB SCH (08:56)
[2019-03-05] MEDS: Lisinopril 10 MG TAB PO SCH (08:56)
[2019-03-05] MEDS: Famotidine 20 MG TAB PO SCH (08:57)
[2019-03-05] MEDS: Amlodipine 10 MG TAB PO SCH (08:57)
[2019-03-05] MEDS: Enoxaparin Sodium 40 MG/0.4 ML SYRINGE SC SCH (08:58)
--- NOTE | 2019-03-05 09:11 | PDOC.HOSPP ---
- Subjective Encounter Date: 03/05/19 Encounter Time: 07:15 Subjective: Expresses no complaint.. - Objective Vital Signs & Weight: Vital Signs (12 hours) Temp Pulse Resp BP BP Pulse Ox 03/05/19 08:57 86 135/64 03/05/19 08:56 135/64 03/05/19 08:50 98.4 F 87 18 135/64 92 L 03/05/19 07:56 95 03/05/19 06:20 86 172/79 H 03/04/19 23:43 82 133/67 Weight Admit Weight 125 lb 0.034 oz Weight 125 lb 0.034 oz I&O: 03/04/19 03/05/19 03/06/19 06:59 06:59 06:59 Intake Total 1650 460 Output Total 1750 700 650 Balance -100 -240 -650 Result Diagrams: 03/04/19 06:07 03/04/19 06:07 Hospitalist ROS - Medication Medications: Active Medications Generic Name Dose Route Start Last Admin Trade Name Freq PRN Reason Stop Dose Admin Amlodipine Besylate 10 mg 03/03/19 09:00 03/05/19 08:57 Norvasc PO 10 mg DAILY POLY Administration Clonidine 0.1 mg 03/03/19 00:25 03/03/19 00:44 Catapres PO 0.1 mg Q4H PRN Administration SBP > 160; use second Enoxaparin Sodium 40 mg 03/03/19 09:00 03/05/19 08:58 Lovenox SC 40 mg 0900 POLY Administration Famotidine 20 mg 03/04/19 09:00 03/05/19 08:57 Pepcid PO 20 mg 0900 POLY Administration Furosemide 40 mg 03/03/19 06:00 03/05/19 06:20 Lasix SLOW IVP 40 mg 0600,1400 POLY Administration Hydralazine HCl 10 mg 03/02/19 17:23 03/02/19 20:48 Apresoline SLOW IVP 10 mg Q4H PRN Administration SBP > 180 and HR < 70 Cefepime HCl 1 gm/ Sodium 100 mls @ 200 mls/hr 03/05/19 09:00 03/05/19 08:56 Chloride IVPB 100 mls 0900 POLY Administration Lisinopril 10 mg 03/04/19 09:00 03/05/19 08:56 Zestril PO 10 mg DAILY POLY Administration Sodium Chloride 10 ml 03/03/19 21:00 03/05/19 08:57 Flush - Normal Saline IVF 10 ml Q12HR POLY Administration - Exam ENT: no oropharyngeal lesions, moist mucosa Neck: no JVD Heart: RRR Respiratory: CTAB Gastrointestinal: soft Extremities: no edema Neurological: no focal deficits Hosp A/P (1) Lymphoma Status: Acute (2) Pleural effusion Code(s): J90 - PLEURAL EFFUSION, NOT ELSEWHERE CLASSIFIED Status: Acute (3) Neutropenia Code(s): D70.9 - NEUTROPENIA, UNSPECIFIED Status: Acute Qualifiers: Neutropenia type: secondary to cancer chemotherapy Qualified Code(s): D70.1 - Agranulocytosis secondary to cancer chemotherapy; T45.1X5A - Adverse effect of antineoplastic and immunosuppressive drugs, initial encounter (4) Symptomatic anemia Code(s): D64.9 - ANEMIA, UNSPECIFIED Status: Acute (5) Acute respiratory failure with hypoxia Code(s): J96.01 - ACUTE RESPIRATORY FAILURE WITH HYPOXIA Status: Acute (6) HTN (hypertension) Code(s): I10 - ESSENTIAL (PRIMARY) HYPERTENSION Status: Chronic Qualifiers: Hypertension type: essential hypertension - Plan Started on broad spectrum antibiotics in view o severe neutropenia... Long acting granulocyte stimuling factor was given as outpatient.. F/u WBCF/U with oncology.
[2019-03-05] MEDS: Vancomycin HCl 750 MG in Sodium Chloride 0.9% 250 ML 250 ML IVPB SCH (10:55)
--- NOTE | 2019-03-05 11:20 | PDOC.MOPN ---
Interval History: Pt feeling better today w/o SOB. Still on 2.5L nasal cannula - Vital Signs Vital Signs: Vital Signs (12 hours) Temp Pulse Resp BP BP Pulse Ox 03/05/19 08:57 86 135/64 03/05/19 08:56 135/64 03/05/19 08:50 98.4 F 87 18 135/64 92 L 03/05/19 07:56 95 03/05/19 06:20 86 172/79 H 03/04/19 23:43 82 133/67 Weight Admit Weight 125 lb 0.034 oz Weight 125 lb 0.034 oz - Physical Exam General: Alert, Oriented x3, Cooperative HEENT: Atraumatic Lungs: Clear to auscultation Cardiovascular: Regular rate, Normal S1, Normal S2 Abdomen: Soft, No tenderness Neurological: Cranial nerves 3-12 NL - Labs Result Diagrams: 03/04/19 06:07 03/04/19 06:07 A/P - Problem (1) Neutropenia Current Visit: Yes Code(s): D70.9 - NEUTROPENIA, UNSPECIFIED Status: Acute Qualifiers: Neutropenia type: secondary to cancer chemotherapy Qualified Code(s): D70.1 - Agranulocytosis secondary to cancer chemotherapy; T45.1X5A - Adverse effect of antineoplastic and immunosuppressive drugs, initial encounter (2) Symptomatic anemia Current Visit: Yes Code(s): D64.9 - ANEMIA, UNSPECIFIED Status: Acute (3) Lymphoma Current Visit: No Status: Chronic Qualifiers: 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
[2019-03-05 11:59] LABS: Eosinophils 5 % (0-10); Hemoglobin 10.5 g/dL (12.0-16.0); Lymphocytes 75 % (21-51); MDiff Complete? YES; Mean Corpuscular HGB CONC 33.5 g/dL (32.0-36.0); Mean Corpuscular Hemoglobin 30.4 pg (27.0-31.0); Mean Corpuscular Volume 90.6 fL (78.0-98.0); Monocytes 5 % (0-10); Neutrophil 15 % (42-75); Platelet Count 275 thou/uL (130-400); RBC Distribution Width 15.8 % (11.5-14.5); Red Blood Cell (RBC) Count 3.46 mill/uL (4.20-5.40); White Blood Cell (WBC) Count 0.6 thou/uL (4.8-10.8)
[2019-03-06] MEDS: Furosemide 40 MG/4 ML VIAL SLOW IVP SCH ×2 (06:15→16:45)
[2019-03-06 08:03] LABS: Anisocytosis SLIGHT = 6-15 cells (100X) (0-5/hpf); Eosinophils 1 % (0-10); Hemoglobin 10.2 g/dL (12.0-16.0); Lymphocytes 7 % (21-51); MDiff Complete? YES; Mean Corpuscular HGB CONC 33.5 g/dL (32.0-36.0); Mean Corpuscular Hemoglobin 30.3 pg (27.0-31.0); Mean Corpuscular Volume 90.6 fL (78.0-98.0); Mean Platelet Volume 7.1 fL (7.4-10.4); Metamyelocyte 1 % (0-0); Monocytes 77 % (0-10); Myelocyte 4 % (0-0); Neutrophil 4 % (42-75); Nucleated RBC 1 % (0); Platelet Count 307 thou/uL (130-400); Platelet Morphology Comment Appears Adequate; RBC Distribution Width 15.8 % (11.5-14.5); Reactive Lymphocytes 5 % (0-10); Red Blood Cell (RBC) Count 3.37 mill/uL (4.20-5.40)
[2019-03-06] MEDS: Cefepime 1 GM in Sodium Chloride 0.9% 100 ML IVPB SCH (09:20)
[2019-03-06] MEDS: Lisinopril 10 MG TAB PO SCH (09:24)
[2019-03-06] MEDS: Famotidine 20 MG TAB PO SCH (09:28)
[2019-03-06] MEDS: Amlodipine 10 MG TAB PO SCH (09:30)
[2019-03-06] MEDS: Enoxaparin Sodium 40 MG/0.4 ML SYRINGE SC SCH (09:31)
[2019-03-06 09:38] LABS: Vancomycin, Trough 14.7 ug/mL
[2019-03-06] MEDS: Vancomycin HCl 750 MG in Sodium Chloride 0.9% 250 ML 250 ML IVPB SCH (10:13)
--- NOTE | 2019-03-06 13:32 | PDOC.HOSPP ---
- Subjective Encounter Date: 03/06/19 Encounter Time: 13:30 Subjective: feeling much stronger - Objective Vital Signs & Weight: Vital Signs (12 hours) Temp Pulse Resp BP BP Pulse Ox 03/06/19 11:41 97.7 F 72 18 112/56 L 94 L 03/06/19 09:30 75 96/57 L 03/06/19 09:24 96/52 L 03/06/19 08:00 97.8 F 70 16 96/57 L 96 03/06/19 06:14 75 139/65 Weight Admit Weight 125 lb 0.034 oz Weight 125 lb 0.034 oz I&O: 03/05/19 03/06/19 03/07/19 06:59 06:59 06:59 Intake Total 460 120 Output Total 700 1400 Balance -240 -1280 Result Diagrams: 03/06/19 06:24 03/04/19 06:07 Hospitalist ROS - Medication Medications: Active Medications Generic Name Dose Route Start Last Admin Trade Name Freq PRN Reason Stop Dose Admin Amlodipine Besylate 10 mg 03/03/19 09:00 03/06/19 09:30 Norvasc PO Not Given DAILY POLY Clonidine 0.1 mg 03/03/19 00:25 03/03/19 00:44 Catapres PO 0.1 mg Q4H PRN Administration SBP > 160; use second Enoxaparin Sodium 40 mg 03/03/19 09:00 03/06/19 09:31 Lovenox SC 40 mg 0900 POLY Administration Famotidine 20 mg 03/04/19 09:00 03/06/19 09:28 Pepcid PO 20 mg 0900 POLY Administration Furosemide 40 mg 03/03/19 06:00 03/06/19 06:15 Lasix SLOW IVP 40 mg 0600,1400 POLY Administration Hydralazine HCl 10 mg 03/02/19 17:23 03/02/19 20:48 Apresoline SLOW IVP 10 mg Q4H PRN Administration SBP > 180 and HR < 70 Vancomycin HCl 750 mg/ Sodium 250 mls @ 250 mls/hr 03/05/19 10:00 03/06/19 10 :13 Chloride IVPB 250 mls 1000 POLY Administration Cefepime HCl 1 gm/ Sodium 100 mls @ 200 mls/hr 03/05/19 09:00 03/06/19 09:20 Chloride IVPB 100 mls 0900 POLY Administration Lisinopril 10 mg 03/04/19 09:00 03/06/19 09:24 Zestril PO Not Given DAILY POLY Sodium Chloride 10 ml 03/03/19 21:00 03/06/19 09:32 Flush - Normal Saline IVF 10 ml Q12HR POLY Administration Sodium Chloride 10 ml 03/03/19 09:13 03/05/19 16:33 Flush - Normal Saline IVF 10 ml PRN PRN Administration Saline Flush - Exam General Appearance: awake alert Eye: PERRL, anicteric sclera ENT: normocephalic atraumatic, no oropharyngeal lesions Neck: supple, symmetric, no JVD, no thyromegaly Heart: RRR, no murmur, no gallops Respiratory: CTAB, no wheezes, no rales Gastrointestinal: soft, non-tender, non-distended Extremities: no cyanosis, no clubbing Neurological: cranial nerve grossly intact, normal sensation to touch, no focal deficits Hosp A/P - Plan continue antibiotics Started on broad spectrum antibiotics in view of severe neutropenia... Long acting granulocyte stimuling factor was given as outpatient.. F/u WBCF/U with oncology. Improving WBC. Cultures negative so fa Stop empiric abx once WBC is more than 1000
--- NOTE | 2019-03-06 13:41 | PDOC.MOPN ---
Interval History: Patient states she is eating more, less SOB. - Vital Signs Vital Signs: Vital Signs (12 hours) Temp Pulse Resp BP BP Pulse Ox 03/06/19 11:41 97.7 F 72 18 112/56 L 94 L 03/06/19 09:30 75 96/57 L 03/06/19 09:24 96/52 L 03/06/19 08:00 97.8 F 70 16 96/57 L 96 03/06/19 06:14 75 139/65 Weight Admit Weight 125 lb 0.034 oz Weight 125 lb 0.034 oz - Physical Exam General: Alert, Oriented x3, No acute distress HEENT: Atraumatic, PERRLA, EOMI, Mucous membr. moist/pink Lungs: Clear to auscultation, Normal air movement Cardiovascular: Regular rate, Normal S1, Normal S2, No murmurs, Gallops, Rubs Abdomen: Normal bowel sounds, Soft, No tenderness, No hepatospenomegaly, No masses Extremities: No clubbing, No cyanosis, No edema, Normal pulses, No tenderness/ swelling Skin: No rashes, No breakdown, No significant lesion Neurological: Normal gait, Normal speech, Strength at 5/5 X4 ext, Normal tone, Sensation intact, Cranial nerves 3-12 NL, Reflexes 2+ Psych/Mental Status: Mental status NL, Mood NL - Labs Result Diagrams: 03/06/19 06:24 03/04/19 06:07 Lab results: Laboratory Results - last 24 hr 03/06/19 09:17: Vancomycin Trough 14.7 03/06/19 06:24: WBC 1.0 L, RBC 3.37 L, Hgb 10.2 L, Hct 30.5 L, MCV 90.6, MCH 30.3, MCHC 33.5, RDW 15.8 H, Plt Count 307, MPV 7.1 L, Neutrophils % (Manual) 4 L, Lymphocytes % (Manual) 7 L, Reactive Lymphs % 5, Monocytes % (Manual) 77 H, Eosinophils % (Manual) 1, Metamyelocytes % (Man) 1 H, Myelocytes % 4 H, Nucleated RBCs # (Man) 1 H, Plt Morphology Comment Appears Adequate, Anisocytosis SLIGHT = 6-15 cells Status: lab reviewed by me A/P - Problem (1) Lymphoma Current Visit: Yes Status: Acute (2) Neutropenia Current Visit: Yes Code(s): D70.9 - NEUTROPENIA, UNSPECIFIED Status: Acute Qualifiers: Neutropenia type: secondary to cancer chemotherapy Qualified Code(s): D70.1 - Agranulocytosis secondary to cancer chemotherapy; T45.1X5A - Adverse effect of antineoplastic and immunosuppressive drugs, initial encounter - Plan Plan: Monitor CBC, WBC trending upwards. Home in next day or 2.
[2019-03-07] MEDS: Furosemide 40 MG/4 ML VIAL SLOW IVP SCH ×2 (06:12→13:37)
[2019-03-07 08:09] LABS: Band 6 % (5-11); Eosinophils 6 % (0-10); Hemoglobin 10.9 g/dL (12.0-16.0); Lymphocytes 8 % (21-51); MDiff Complete? YES; Mean Corpuscular HGB CONC 33.2 g/dL (32.0-36.0); Mean Corpuscular Hemoglobin 30.3 pg (27.0-31.0); Mean Corpuscular Volume 91.2 fL (78.0-98.0); Mean Platelet Volume 7.2 fL (7.4-10.4); Metamyelocyte 5 % (0-0); Monocytes 57 % (0-10); Myelocyte 9 % (0-0); Neutrophil 8 % (42-75); Nucleated RBC 1 % (0); Platelet Count 365 thou/uL (130-400); Platelet Morphology Comment Appears Adequate; RBC Distribution Width 15.9 % (11.5-14.5); RBC Morphology Normal; Red Blood Cell (RBC) Count 3.61 mill/uL (4.20-5.40); White Blood Cell (WBC) Count 1.9 thou/uL (4.8-10.8)
[2019-03-07 08:32] VITALS: TEMP 97.5
[2019-03-07] MEDS: Enoxaparin Sodium 40 MG/0.4 ML SYRINGE SC SCH (09:21)
[2019-03-07] MEDS: Cefepime 1 GM in Sodium Chloride 0.9% 100 ML IVPB SCH (09:21)
[2019-03-07] MEDS: Amlodipine 10 MG TAB PO SCH (09:21)
[2019-03-07] MEDS: Famotidine 20 MG TAB PO SCH (09:22)
[2019-03-07 09:23] VITALS: BP 128/65
[2019-03-07] MEDS: Lisinopril 10 MG TAB PO SCH (09:23)
[2019-03-07] MEDS: Vancomycin HCl 750 MG in Sodium Chloride 0.9% 250 ML 250 ML IVPB SCH (10:23)
--- NOTE | 2019-03-07 14:22 | PDOC.MOPN ---
Interval History: no complaints, planning to go yonas today - Vital Signs Vital Signs: Vital Signs (12 hours) Temp Pulse Resp BP BP Pulse Ox 03/07/19 09:23 128/65 03/07/19 09:21 82 128/65 03/07/19 08:23 97.5 F L 82 18 128/68 98 03/07/19 08:00 98 03/07/19 06:11 80 152/70 H Weight Admit Weight 125 lb 0.034 oz Weight 125 lb 0.034 oz - Physical Exam General: Alert, Oriented x3, No acute distress HEENT: Atraumatic, PERRLA, EOMI, Mucous membr. moist/pink Lungs: Clear to auscultation, Normal air movement Cardiovascular: Regular rate, Normal S1, Normal S2, No murmurs, Gallops, Rubs Abdomen: Normal bowel sounds, Soft, No tenderness, No hepatospenomegaly, No masses Extremities: No clubbing, No cyanosis, No edema, Normal pulses, No tenderness/ swelling Skin: No rashes, No breakdown, No significant lesion Neurological: Normal gait, Normal speech, Strength at 5/5 X4 ext, Normal tone, Sensation intact, Cranial nerves 3-12 NL, Reflexes 2+ Psych/Mental Status: Mental status NL, Mood NL - Labs Result Diagrams: 03/07/19 06:40 03/04/19 06:07 Lab results: Laboratory Results - last 24 hr 03/07/19 06:40: WBC 1.9 L, RBC 3.61 L, Hgb 10.9 L, Hct 32.9 L, MCV 91.2, MCH 30.3, MCHC 33.2, RDW 15.9 H, Plt Count 365, MPV 7.2 L, Neutrophils % (Manual) 8 L, Band Neuts % (Manual) 6, Lymphocytes % (Manual) 8 L, Monocytes % (Manual) 57 H, Eosinophils % (Manual) 6, Basophils % (Manual) 1, Metamyelocytes % (Man) 5 H , Myelocytes % 9 H, Nucleated RBCs # (Man) 1 H, Plt Morphology Comment Appears Adequate, RBC Morph Comment Normal Status: lab reviewed by me A/P - Problem (1) Lymphoma Current Visit: Yes Status: Acute (2) Neutropenia Current Visit: Yes Code(s): D70.9 - NEUTROPENIA, UNSPECIFIED Status: Acute Qualifiers: Neutropenia type: secondary to cancer chemotherapy Qualified Code(s): D70.1 - Agranulocytosis secondary to cancer chemotherapy; T45.1X5A - Adverse effect of antineoplastic and immunosuppressive drugs, initial encounter - Plan Plan: She will follow-up with Dr. Valentine next week to decide on cycle 6.
--- NOTE | 2019-03-09 05:55 | PQF ---
[facility] Echocardiographer [employer] SALLY Pfeiffer CHRIS VANCE [id number] CLINICAL DOCUMENTATION CLARIFICATION FORM: POST DISCHARGE Addendum to original discharge summary date: ____ Late entry note date: __ DATE: 03/09/2019 ATTN: CHRIS VANCE Please exercise your independent, professional judgment in responding to the clarification form. Clinical indicators are provided on the bottom of this form for your review Please check appropriate box(s): Etiology of Acute respiratory failure [ ] Acute respiratory failure due to CHF [ ] Acute respiratory failure due to Malignant Pleural effusion with lymphoma [ ] Other diagnosis [ ] Unable to determine In addition, please specify: Present on Admission (POA): [ ] Yes [ ] No [ ] Unable to determine For continuity of documentation, please document condition throughout progress notes and discharge summary. Thank You. 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 that also contributes to her hypoxic respiratory failure - Documented in H&P on 03/02 by Rina Lopez Elevated BNP 206 on 03/02 - Documented in Laboratory result she states she does feel better after receiving IV lasix,but still feel short of breath - Documented in Consult note on 03/03 by Marco Lieberman This potentially caused from extreme high BP & some diastolic HF - Documented in Consult note on 03/03 by Marco Lieberman Pleural effusions which were involved with lymphoma - Documented in Consult note on 03/03 by Marco Lieberman Her anemia could be contributing to her hypoxia - Documented in Consult note on 03/03 by Marco Lieberman RISK FACTORS Lymphoma Neutropenia due to chemo - Documented in H&P on 03/02 by Rina Lopez Acute respiratory failure with hypoxia HTN TREATMENTS: Lasix 40 mg IV - Documented in H&P on 03/02 by Rina Lopez Chest X ray Consultation Continue antibiotics (This form is maintained as a part of the permanent medical record) 2014 [employer] All Rights Reserved [email or web address] [email or web address] [not [email or web address]] [email or web address]
--- NOTE | 2019-03-16 04:42 | PQF ---
ZITASALLY CHRIS VANCE [id number] CLINICAL DOCUMENTATION CLARIFICATION FORM: POST DISCHARGE Addendum to original discharge summary date: ____ Late entry note date: __ DATE: 03/09/2019 ATTN: CHRIS VANCE Please exercise your independent, professional judgment in responding to the clarification form. Clinical indicators are provided on the bottom of this form for your review Please check appropriate box(s): Kindly provide the appropriate condition which occasioning the admission [ ] Congestive Heart Failure [ ] Acute respiratory failure with hypoxia [ ] Malignant Pleural Effusion with Lymphoma [ ] Other diagnosis [ ] Unable to determine For continuity of documentation, please document condition throughout progress notes and discharge summary. Thank You. CLINICAL INDICATORS - SIGNS / SYMPTOMS / LABS Diastolic dysfunction and diastolic HF contributing to her hypoxic respiratory failure - Documented in H&P on 03/02 by Rina Lopez Malignant Pleural Effusion in the recent past that also contribute to her hypoxic respiratory failure - Documented in H&P on 03/02 by Rina Lopez Elevated BNP 206 on 03/02 - Documented in Laboratory She does feel better after receiving IV Lasix but still feel SOB - Documented in Consult note on by Marco Lieberman Pleural Effusion which were involved with lymphoma - Documented in Consult note on by Marco Lieberman Her anemia could be contributing to her hypoxia - Documented in Consult note on by Marco Lieberman [employer] Lymphoma Neutropenia due to chemo - Documented in H&P on 03/02 by Rina Lopez Acute respiratory failure with hypoxia TREATMENTS: Lasix 40 mg IV Chest Xray Consultation Continue antibiotics (This form is maintained as a part of the permanent medical record) 2014 [employer] All Rights Reserved [email or web address] [email or web address] [not provided] MTDD
== END 2019-03-07 15:50 | disposition home or self-care (01) | DRG 840 ==
LOC: ERS 10:39 → ONC 15:55
PROVIDERS: ADMIT Internal Medicine; ATTEND Internal Medicine
PROC: 30233N1 Transfusion of Nonautologous Red Blood Cells into Peripheral Vein, Percutaneous Approach (ICD-10-PCS; principal; 2019-03-03)
DX: C82.90 Follicular lymphoma, unspecified, unspecified site (principal); J96.01 Acute respiratory failure with hypoxia; J90 Pleural effusion, not elsewhere classified; I31.3 Pericardial effusion (noninflammatory); E44.0 Moderate protein-calorie malnutrition; F17.210 Nicotine dependence, cigarettes, uncomplicated; D70.1 Agranulocytosis secondary to cancer chemotherapy; T45.1X5A Adverse effect of antineoplastic and immunosuppressive drugs, initial encounter; D64.9 Anemia, unspecified; Z98.890 Other specified postprocedural states; Z68.22 Body mass index [BMI] 22.0-22.9, adult; I11.0 Hypertensive heart disease with heart failure; I50.9 Heart failure, unspecified
CPT/HCPCS: 36415; 36416; 36430; 71045; 71275; 80048; 80053; 80202; 81001; 82607; 82728; 82746; 83540; 83550; 83880; 84484; 85025; 86850; 86900; 86901; 93005; 94760; J0360; J0692; J1650; J1756; J1940; J3370; J3490; J7050; P9016; Q9967

== ENCOUNTER 2019-03-07 21:07 | Observation (INO) | payer MEDICARE, OTHER ==
[2019-03-07] MEDS ORDERED: Magnesium 2 GM/50 ML BAG (IN WATER) ONE (21:31)
--- NOTE | 2019-03-07 21:39 | RAD ---
Chest one view HISTORY: Fall. Chest injury. COMPARISON: 03/02/2019. FINDINGS: Cardiac silhouette is magnified by projection. Mediastinum remains shifted leftward slightl y. Calcification in the aorta. Calcified mediastinal lymph nodes. Right subclavian Port-A-Cath. Flattening of the right lateral costophrenic angle and right basilar atelectasis are again demonstrat ed. Improved aeration of the left lung base and better definition of the left hemidiaphragm. No evidence of pneumothorax. Skinfold over the right upper chest. IMPRESSION: No acute abnormalities are demonstrated. Interval clearing of left pleural effusion and left basilar atelectasis. Small right pleural effusion and basilar atelectasis persists. Atherosclerosis.
[2019-03-07 21:54] LABS: Actual Bicarbonate (HCO3a) 27.9 mEq/L (22-28); Analyzer IN Cardio ER; Base Excess (BEa) 7.3 mEq/L (-2.0 to +3.0); CO2 Tension 27.3 mmHg (35.0-45.0); Carboxyhemoglobin (COHb) 0.3 gm% (0.0-3.0); Hemoglobin (Hb) 12.3 g/dL (12.0-16.0); O2 Tension (PaO2) 71.9 mmHg (> 60.0); Potassium - ABG Lab 3.17 mmol/L (3.70-5.30)
[2019-03-07 22:01] LABS: Puncture Site RRA; pH, Arterial 7.63 (7.35-7.45)
[2019-03-07 22:02] LABS: ALV-art Gradient 93.615 (0-20)
[2019-03-07 22:11] LABS: ALT (SGPT) 7 U/L (8-55); AST (SGOT) 11 U/L (5-34); Albumin 3.4 g/dL (3.4-4.8); Alkaline Phosphatase 95 U/L (40-110); Anion Gap 17 mmol/L (10-20); BUN (Urea Nitrogen) 26 mg/dL (9.8-20.1); Bilirubin, Total 0.3 mg/dL (0.2-1.2); CK (CPK) 12 U/L (29-168); Calc. Creatinine Clearance 0 mL/min (70-130); Calcium 9.3 mg/dL (7.8-10.44); Carbon Dioxide 33 mmol/L (23-31); Chloride 90 mmol/L (98-107); Estimated GFR-MDRD 38; Globulin 2.6 g/dL (2.4-3.5); Glucose 112 mg/dL (83-110); Lipase 16 U/L (8-78); Sodium 137 mmol/L (136-145)
[2019-03-07 22:23] LABS: Band 10 % (5-11); Eosinophils 2 % (0-10); Hemoglobin 12.5 g/dL (12.0-16.0); Lymphocytes 17 % (21-51); MDiff Complete? YES; Mean Corpuscular HGB CONC 32.7 g/dL (32.0-36.0); Mean Corpuscular Hemoglobin 29.9 pg (27.0-31.0); Mean Corpuscular Volume 91.5 fL (78.0-98.0); Metamyelocyte 1 % (0-0); Monocytes 41 % (0-10); Myelocyte 15 % (0-0); Neutrophil 14 % (42-75); Nucleated RBC 1 % (0); Platelet Count 475 thou/uL (130-400); RBC Distribution Width 15.9 % (11.5-14.5); Red Blood Cell (RBC) Count 4.18 mill/uL (4.20-5.40); White Blood Cell (WBC) Count 3.5 thou/uL (4.8-10.8)
[2019-03-07] MEDS ORDERED: Potassium Chloride 20 MEQ TAB ONE (22:31)
[2019-03-08] MEDS ORDERED: Potassium Chloride 20 MEQ TAB PO SCH (00:30)
[2019-03-08 01:14] LABS: Troponin I 0.021 ng/mL (< 0.028)
--- NOTE | 2019-03-08 01:45 | HP ---
PRIMARY CARE PHYSICIAN: Dr. Zeny Pascual. CHIEF COMPLAINT: Dizziness and fall. HISTORY OF PRESENT ILLNESS: This is an 88-year-old female, who presented to [facility] Emergency Department in transfer by EMS personnel after they were called to the patient's home after the patient apparently sustained a fall after becoming dizzy. The patient states she felt some palpitations, but no chest pain, but did complain of some associated shortness of breath. The patient denied loss of consciousness or head injury, but was unable to get up off the floor with the assistance of her . EMS personnel did document the patient was hypoxic with O2 saturations in the mid 80% range and was placed on 2 L/minute by nasal cannula. The patient's history is significant for recent admission and discharge 03/02/2019 through 03/07/2019 after treatment for neutropenia in the context of follicular lymphoma under current chemotherapy. The patient returned home, but felt increasingly weak in her legs and some dizziness as described previously. In the emergency room, the patient underwent general evaluation with telemetry and EKG monitoring showing evidence of atrial fibrillation with rapid ventricular response with heart rates in the 160s. The patient received a single dose of diltiazem 20 mg IV push in addition to potassium chloride. The patient also received magnesium sulfate and intravenous normal saline x 500 mL. The patient converted to sinus mechanism with heart rates in the 80s and confirmed by the youth nutritional monitor. PAST MEDICAL HISTORY: 1. Follicular lymphoma, on current chemotherapy. 2. Pleural effusion secondary to lymphoma. 3. Pancytopenia secondary to chemotherapy. 4. Hypertension. PAST SURGICAL HISTORY: 1. Status post PleurX catheter placement. 2. Status post MediPort placement. 3. Status post skin cancer surgery. 4. Status post oral surgery. CURRENT MEDICATIONS: 1. Lisinopril 10 mg p.o. daily. 2. Norvasc 10 mg p.o. daily. 3. Tramadol/acetaminophen 37.5/325 mg one tablet p.o. q.6 hours p.r.n. pain. ALLERGIES: NO KNOWN DRUG ALLERGIES. FAMILY HISTORY: Family history both parents in their 80s. Father with history of Parkinson disease. SOCIAL HISTORY: The patient is accompanied by her in the emergency room. Resides in [place], [place]. Former tobacco use, quitting in the last 2 to 4 weeks. No alcohol or illicit drug use. Ambulates with a rolling walker or cane. REVIEW OF SYSTEMS: CONSTITUTIONAL: Negative for weight loss or gain, ability to conduct usual activities. SKIN: Negative for rash, itching. EYES: Negative for double vision, pain. ENT/MOUTH: Negative for nose bleeding, neck stiffness, pain, tenderness. CARDIOVASCULAR: Negative for palpitations, dyspnea on exertion, orthopnea. RESPIRATORY: Negative for shortness of breath, wheezing, cough, hemoptysis, fever or night sweats. GASTROINTESTINAL: Negative for poor appetite, abdominal pain, heartburn, nausea, vomiting, constipation, or diarrhea. GENITOURINARY: Negative for urgency, frequency, dysuria, nocturia. MUSCULOSKELETAL: Negative for pain, swelling. NEUROLOGIC/PSYCHIATRIC: Negative for anxiety, depression. ALLERGY/IMMUNOLOGIC: Negative for skin rash, bleeding tendency. Otherwise negative except as stated per HPI. PHYSICAL EXAMINATION: VITAL SIGNS: On admission, blood pressure 133/71, pulse 160, respiratory rate 24 temperature 98.1 degrees Fahrenheit, O2 saturation 97% on 2 L/minute by nasal cannula. GENERAL APPEARANCE: This is an 88-year-old female, agitated, alert, responds to questions in moderate distress. HEENT: Pupils are equal, round, reactive to light and accommodation. Extraocular muscles are intact. No scleral icterus. No conjunctival injection. Nares patent. OP is clear. Oral mucosa dry appearing. NECK: Supple. No cervical adenopathy. No thyromegaly. No carotid bruits. No JVD appreciated. Cervical spine with full active and passive range of motion. No meningeal signs noted. CHEST: Diminished breath sounds in the bases bilaterally. CARDIOVASCULAR EXAM: S1, S2 without noted murmur, rub, or gallop. ABDOMEN: Rounded, soft, nontender, and nondistended. Bowel sounds are positive in all 4 quadrants. There is no hepatosplenomegaly. No abdominal bruits. No rebound or guarding appreciated. EXTREMITIES: Skin tear to the left upper extremity. No clubbing, cyanosis, or asymmetric edema of the lower extremities. Pulses palpable distally at the dorsalis pedis, posterior tibial, and popliteal arteries bilaterally. Capillary refill less than 2 seconds. NEUROLOGIC: Cranial nerves 2 through 12 are grossly intact. No focal or lateralizing signs appreciated. PERTINENT LABORATORY AND X-RAY FINDINGS: Sodium 137, potassium 3.0, chloride 90, CO2 of 33, BUN 26, creatinine 1.33. Estimated GFR of 38, glucose 112, calcium 9.3. LFTs within normal limits. Total CK of 12, troponin I negative x1. BNP 82. Lipase 16. Albumin 3.4. CBC showed a white blood cell count of 3.5, hemoglobin 12.5, hematocrit 38, platelet count 475 with 14% neutrophils and 41% monocytes. IMAGING: Portable chest x-ray dated 03/07/2019, showed no acute process. Flattening of the right lateral costophrenic angle with associated right basilar atelectasis. Improved aeration of the left lung base. EKG dated 03/07/2019, by my interpretation shows atrial fibrillation with rapid ventricular response, heart rates in the 160s. Normal R-wave progression noted in the precordial leads. Normal axis. ASSESSMENT/PLAN: 1. Atrial fibrillation with rapid ventricular response. The patient will be observed on the telemetry unit. The patient converted to sinus mechanism after a single dose of diltiazem IV push. Resume home regimen of Norvasc. Continue telemetry monitoring for recurrence. Check magnesium and thyroid stimulating hormone level in the a.m. Consider Cardiology consultation, if patient has recurrence. 2. Acute kidney injury on chronic kidney disease stage 3. Continue intravenous normal saline at 75 mL/hour. Avoid nephrotoxic agents, limit contrast exposure. Repeat creatinine in the a.m. 3. Hypokalemia. Potassium chloride 40 mEq p.o. x1 now and b.i.d. Repeat potassium level in the a.m. 4. Dizziness with fall. Suspect multifactorial given patient's likely dehydration and presentation with atrial fibrillation. PT evaluation in the a.m. General fall risk precautions. 5. Follicular lymphoma with current chemotherapy. No current evidence of neutropenia or pancytopenia. Continue supportive management with outpatient followup with Medical Oncology Service. 6. Prophylaxis. Sequential compression devices while in bed. Pepcid 20 mg p.o. b.i.d. PT evaluation in the a.m. CODE STATUS: Full. Surrogate medical decision maker is the patient's spouse. Job ID: [id number]
[2019-03-08] MEDS ORDERED: Ondansetron PF 4 MG/2 ML Vial IVP PRN (02:19)
[2019-03-08] MEDS ORDERED: hydrALAZINE 20 MG/ML VIAL SLOW IVP PRN (02:19)
[2019-03-08] MEDS ORDERED: Acetaminophen 500 MG TAB PO PRN (02:19)
[2019-03-08] MEDS ORDERED: Ondansetron ODT 4 MG TAB PO PRN (02:19)
[2019-03-08 02:23] VITALS: BMI 19.4
[2019-03-08] MEDS ORDERED: traMADol HCl 50 MG TAB PO PRN (02:28)
[2019-03-08] MEDS ORDERED: Acetaminophen 325 MG TAB PO PRN (02:29)
[2019-03-08] MEDS: Sodium Chloride 0.9% 1,000 ML IV SCH ×2 (02:44→14:19)
[2019-03-08 06:36] LABS: Hemoglobin 11.3 g/dL (12.0-16.0); Mean Corpuscular HGB CONC 32.9 g/dL (32.0-36.0); Mean Corpuscular Hemoglobin 30.2 pg (27.0-31.0); Mean Corpuscular Volume 91.8 fL (78.0-98.0); Mean Platelet Volume 6.9 fL (7.4-10.4); Platelet Count 406 thou/uL (130-400); RBC Distribution Width 15.9 % (11.5-14.5); Red Blood Cell (RBC) Count 3.75 mill/uL (4.20-5.40); White Blood Cell (WBC) Count 5.1 thou/uL (4.8-10.8)
[2019-03-08 06:52] LABS: ALT (SGPT) Less than 7 U/L (8-55); AST (SGOT) 12 U/L (5-34); Albumin 2.9 g/dL (3.4-4.8); Alkaline Phosphatase 79 U/L (40-110); Anion Gap 14 mmol/L (10-20); BUN (Urea Nitrogen) 27 mg/dL (9.8-20.1); Bilirubin, Total 0.2 mg/dL (0.2-1.2); Calc. Creatinine Clearance 24 mL/min (70-130); Calcium 8.7 mg/dL (7.8-10.44); Carbon Dioxide 30 mmol/L (23-31); Chloride 95 mmol/L (98-107); Estimated GFR-MDRD 41; Globulin 2.2 g/dL (2.4-3.5); Glucose 91 mg/dL (83-110); Magnesium 2.5 mg/dL (1.6-2.6); Potassium 3.6 mmol/L (3.5-5.1); Protein, Total 5.1 g/dL (6.0-8.3); Sodium 135 mmol/L (136-145); Troponin I 0.021 ng/mL (< 0.028)
[2019-03-08] MEDS ORDERED: Lisinopril 10 MG TAB PO SCH (09:00)
[2019-03-08] MEDS ORDERED: FLU VACC TS2019-20(65YR UP)/PF 180 MCG/0.5 ML SYRINGE IM ONE (09:00)
[2019-03-08] MEDS: Famotidine 20 MG TAB PO SCH (09:05)
[2019-03-08] MEDS: Potassium Chloride 20 MEQ TAB PO SCH ×2 (09:05→17:53)
[2019-03-08] MEDS: Amlodipine 10 MG TAB PO SCH (09:06)
[2019-03-08 09:28] LABS: Band 18 % (5-11); Lymphocytes 11 % (21-51); MDiff Complete? YES; Metamyelocyte 13 % (0-0); Monocytes 35 % (0-10); Myelocyte 10 % (0-0); Neutrophil 6 % (42-75); RBC Morphology Normal; Reactive Lymphocytes 7 % (0-10)
--- NOTE | 2019-03-08 16:38 | CON ---
DATE OF CONSULTATION: REASON FOR CONSULTATION: Atrial fibrillation. PRIMARY MILL ORDER SCHEDULER: None. HISTORY OF PRESENT ILLNESS: Ms. Lowery is a very pleasant 88-year-old woman, who has no previous history of underlying coronary artery disease, who recently presented with atrial fibrillation. She was seen and evaluated in the emergency room for dizziness and a recent fall. It is unknown whether the fall was precipitated by the atrial fibrillation or whether the recent trauma from the fall precipitated the atrial fibrillation. She has been currently receiving treatment for follicular lymphoma. She states she has had intermittent dizziness. This episode was longer than normal. She presented to the emergency room with the above. She was given IV diltiazem and converted to sinus rhythm. She denies chest pain, pressure, or shortness of breath. PAST MEDICAL HISTORY: As above including hypertension, MediPort placement, skin cancer, and oral surgery. HOME MEDICATIONS: Include lisinopril, Norvasc, tramadol/acetaminophen. ALLERGIES: NONE. SOCIAL HISTORY: She is currently . Recent tobacco cessation. No alcohol use. REVIEW OF SYSTEMS: A 10-point review of systems is reviewed as above, otherwise negative. PHYSICAL EXAMINATION: GENERAL: Patient is a pleasant 88-year-old woman, who is in no acute distress. The patient appears their stated age. VITAL SIGNS: Blood pressure 107/55, pulse 80, respirations 20. NEUROLOGIC: The patient is alert and oriented x3 with no focal neurologic deficits. HEENT: Sclerae without icterus. Mouth has moist mucous membranes with normal pallor. NECK: No JVD. Carotid upstroke brisk. No bruits bilaterally. LUNGS: Clear to auscultation with unlabored respirations. BACK: No scoliosis or kyphosis. CARDIAC: Regular rate and rhythm with normal S1 and S2. No S3 or S4 noted. No significant rubs, murmurs, thrills, or gallops noted throughout the precordium. PMI is not displaced. There is no parasternal heave. ABDOMEN: Soft, nontender, nondistended. No peritoneal signs present. No hepatosplenomegaly. No abnormal striae. EXTREMITIES: 2+ femoral and 2+ dorsalis pedis pulses. No cyanosis, clubbing, or edema. SKIN: No gross abnormalities. LABORATORY DATA: Hemoglobin 11.3, hematocrit 34.5. Creatinine 1.24 with a GFR of 41. IMPRESSION: Atrial fibrillation. RECOMMENDATIONS: Ms. Lowery has no current symptoms suggesting angina. She did convert to sinus rhythm after IV Cardizem. At this point, I would recommend the followin. Eliquis 2.5 mg b.i.d. (I discussed risks and benefits of proceeding with anticoagulation treatment and she agrees to proceed). 2. Add low-dose Toprol-XL 25 mg at bedtime. 3. Review her echo; if LVEF is normal, will be okay from my standpoint to discharge home with a 3-week event recorder. Job ID: [id number]
[2019-03-08] MEDS: Apixaban 2.5 MG TAB PO SCH (21:29)
[2019-03-09] MEDS: Sodium Chloride 0.9% 1,000 ML IV SCH (04:31)
--- NOTE | 2019-03-09 06:11 | PDOC.HOSPP ---
- Subjective Encounter Date: 03/08/19 Encounter Time: 09:45 Subjective: pt up in bed no complains - Objective Vital Signs & Weight: Vital Signs (12 hours) Temp Pulse Resp BP BP Pulse Ox 03/09/19 04:00 98.5 F 93 20 146/65 H 92 L 03/09/19 00:00 88 20 03/08/19 20:00 97.8 F 90 20 147/67 H 147/67 H 94 L Weight Admit Weight 106 lb 3.2 oz Weight 106 lb 3.2 oz I&O: 03/07/19 03/08/19 03/09/19 06:59 06:59 06:59 Intake Total 240 Balance 240 Result Diagrams: 03/08/19 06:10 03/08/19 06:10 Hospitalist ROS - Review of Systems Respiratory: denies: cough, dry, shortness of breath, hemoptysis, SOB with excertion, pleuritic pain, sputum, wheezing, other Cardiovascular: denies: chest pain, palpitations, orthopnea, paroxysmal noc. dyspnea, edema, light headedness, other Gastrointestinal: denies: nausea, vomiting, abdominal pain, diarrhea, constipation, melena, hematochezia, other - Medication Medications: Active Medications Generic Name Dose Route Start Last Admin Trade Name Freq PRN Reason Stop Dose Admin Amlodipine Besylate 10 mg 03/08/19 09:00 03/08/19 09:06 Norvasc PO 10 mg DAILY POLY Administration Apixaban 2.5 mg 03/08/19 21:00 03/08/19 21:29 Eliquis PO 2.5 mg BID POLY Administration Famotidine 20 mg 03/08/19 09:00 03/08/19 09:05 Pepcid PO 20 mg DAILY POLY Administration Sodium Chloride 1,000 mls @ 75 mls/hr 03/08/19 02:30 03/09/19 04:31 Normal Saline 0.9% IV 1,000 mls .[id number] POLY Administration Lisinopril 10 mg 03/08/19 09:00 03/08/19 09:06 Zestril PO 10 mg DAILY POLY Administration Potassium Chloride 40 meq 03/08/19 08:00 03/08/19 17:53 K-Dur PO 40 meq BID-WM POLY Administration - Exam Neck: negative: supple, symmetric, no JVD, no thyromegaly, no lymphadenopathy, no carotid bruit, JVD Heart: negative: RRR, no murmur, no gallops, no rubs, normal peripheral pulses, irregular, diminshed peripheral pulses, murmur present, II/IV, III/IV Respiratory: negative: CTAB, no wheezes, no rales, no ronchi, normal chest expansion, no tachypnea, normal percussion, rales, rhonchi, tachypneic, wheezes Gastrointestinal: negative: soft, non-tender, non-distended, normal bowel sounds , no palpable masses, no hepatomegaly, no splenomegaly, no bruit, no guarding, no rigidity, tender to palpation, distended, diminished bowl sounds, voluntary guarding Skin - other findings: several bruising to bilateral arms Hosp A/P (1) Atrial fibrillation with RVR Code(s): I48.91 - UNSPECIFIED ATRIAL FIBRILLATION Status: Acute (2) Dizziness Code(s): R42 - DIZZINESS AND GIDDINESS Status: Acute (3) HTN (hypertension) Code(s): I10 - ESSENTIAL (PRIMARY) HYPERTENSION Status: Chronic Qualifiers: (4) Lymphoma Status: Chronic Qualifiers: (5) Moderate protein malnutrition Code(s): E44.0 - MODERATE PROTEIN-CALORIE MALNUTRITION Status: Chronic - Plan pt was noted to be hypoxic when she was in afib rvr. According to pt she has used oxygen before. she was a smoker 1.5 pack a week for 40+ years. She recently had a ct chest which was negative for pe. she does not complain of sob. No infiltrate noted on cxr. will get echo and bnp. cardiology consulted. she will need AC due to her afib. she is rate controlled. She was just discharged from the hospital and prior to discharge has been refusing PT. she has agreeded to go to inpatient rehab due to her many medical problems and for strengthening. I have discussed this with her and she has agreed. she wants to be a full code for now.
[2019-03-09] MEDS: Potassium Chloride 20 MEQ TAB PO SCH ×2 (08:41→16:45)
[2019-03-09] MEDS: Apixaban 2.5 MG TAB PO SCH (08:42)
[2019-03-09] MEDS: Amlodipine 10 MG TAB PO SCH (08:42)
[2019-03-09] MEDS: Famotidine 20 MG TAB PO SCH (08:43)
[2019-03-09 16:05] VITALS: BP 129/62; TEMP 98.3
--- NOTE | 2019-03-09 17:56 | PRG ---
DATE OF SERVICE: 03/09/2019 SUBJECTIVE: Ms. Lowery is doing well. Her recent echo suggested normal LVEF. She did have diastolic dysfunction. Heart rate is stable. OBJECTIVE: VITAL SIGNS: Blood pressure 113/62, pulse 79, temperature 98.3. LUNGS: Clear to auscultation. HEART: Regular rate and rhythm. ABDOMEN: Soft, nontender, nondistended. EXTREMITIES: No edema. PERTINENT LABORATORY DATA: Hemoglobin 11.3, platelet count 406. Creatinine 1.24 with a GFR 41. IMPRESSION: Paroxysmal atrial fibrillation. RECOMMENDATIONS: 1. Eliquis 2.5 mg p.o. b.i.d. 2. Toprol-XL 25 mg one p.o. q.h.s. and can titrate as needed. 3. From my standpoint, I have no further recommendations. Risks and benefits of anticoagulation therapy have been discussed with Ms. Lowery. It would be okay to transfer to a skilled when okay with primary team. Dr. Aviva Wise will be available for further questions if needed. We will sign off and follow up as an outpatient. Job ID: [id number]
--- NOTE | 2019-03-10 09:11 | DIS ---
DATE OF ADMISSION: 03/08/2019 DATE OF DISCHARGE: 03/09/2019 HOSPITAL COURSE: The patient is an 88-year-old female who just left the hospital. Her last previous discharge was on 03/07. She initially during that admission was admitted for neutropenia and was initially put on prophylactic antibiotics. Her counts began to improve. Since the patient has a history of lymphoma, she is undergoing chemotherapy. At this time, her antibiotics were discontinued. Her cultures were negative and she was then discharged home. She had refused physical therapy on multiple occasions during that hospitalization. The patient then went home, got very dizzy and she slid down. At this time, she was brought into the hospital. She was found to be in atrial fibrillation with rapid ventricular response and was also found to be hypoxic in the 80s. The patient was given Cardizem. Her heart rate improved and she actually converted back to sinus rhythm. The patient denies any chest pain or shortness of breath. The patient during her previous hospital hospitalization actually in 03/02, had a CTA which was essentially normal. She just had some bilateral effusion and some pericardial effusion, but no pulmonary embolism was noted. We went ahead and did an echocardiogram. She did have an EF of 50% to 60% with small trivial pericardial effusion and some diastolic dysfunction. Cardiology also was consulted. Given her CHADS-VASc score, she was put on anticoagulation per Cardiovascular recommendation. Her heart rate is much controlled. She has agreed on inpatient therapy given her multiple comorbidities. Again as I mentioned, the patient has been currently treated actively for lymphoma. I did talk with Oncology, who stated that her next chemotherapy will be 03/15, and at this time, the patient also is contemplating if she should continue chemotherapy since she has become very deconditioned. I did discuss code status with this patient, she wants to be resuscitated. HOME MEDICATIONS: On discharge will be as of the following: She is on: 1. Eliquis 2.5 b.i.d. 2. Lopressor 25 mg daily. 3. q.8 hours p.r.n. 4. Norvasc 10 mg daily. 5. Lisinopril 10 mg daily. PHYSICAL EXAMINATION: VITAL SIGNS: Temperature of 98.4, pulse 95% on room air. GENERAL: She is awake, alert, and oriented x3. Does not appear in any distress. CV: S1 and S2 present. No murmurs, rubs, or gallops. ABDOMEN: Soft and nontender. Bowel sounds are present x2. The patient's hypoxia was a concern to me. I did review her records. She did have a history of smoking. According to her, she has smoked a pack and half for about 40 to 60+ years. She has never really had PFTs. She states that she was on oxygen at times before when she was getting her chemotherapy. I checked a BNP on her. Her BNP was normal. Also, the echocardiogram had a good indicator of good EF. She has no pneumonias that are noted. She recently had a CTA on the that did not show any pulmonary embolism. I believe her hypoxia most likely is secondary to her heart rate going into the 130s to 140s and atrial fibrillation and at this time, she probably became a little hypoxic. I did walk her with the nursing staff, who stated that when she ambulates, her oxygen does drop; however when she stops, her oxygenation resumes and her sats improved. I do not think she requires any more further testing. She may require possibly PFTs in the future. Also, I will put her on some albuterol inhaler as needed. I will add that to her medication list. Job ID: [id number]
== END 2019-03-09 17:50 | disposition home or self-care (01) ==
LOC: ERS 21:07 → 2NO 03-08 00:19
PROVIDERS: ADMIT Family Medicine; ATTEND Family Medicine
DX: I48.0 Paroxysmal atrial fibrillation (principal); R09.02 Hypoxemia; E87.6 Hypokalemia; C82.90 Follicular lymphoma, unspecified, unspecified site; I12.9 Hypertensive chronic kidney disease with stage 1 through stage 4 chronic kidney disease, or unspecified chronic kidney disease; N18.3 Chronic kidney disease, stage 3 (moderate); N17.9 Acute kidney failure, unspecified; E44.0 Moderate protein-calorie malnutrition; Z68.20 Body mass index [BMI] 20.0-20.9, adult; Z87.891 Personal history of nicotine dependence; Z79.899 Other long term (current) drug therapy; W19.XXXA Unspecified fall, initial encounter
CPT/HCPCS: 71045; 80053 ×2; 82550; 82805; 83690; 83735; 83880; 84443; 84484 ×3; 85007; 85025; 85027; 93005; 93306; 96361 ×2; 96365; 96375; 97110; 97116 ×2; 97139 ×5; 97535; 99285; G0378 ×4; 36415; J3475

== ENCOUNTER 2019-05-16 12:18 | Outpatient (CLI) | payer MEDICARE ==
--- NOTE | 2019-05-16 14:50 | PET ---
EXAM: PET/CT HISTORY: Follicular lymphoma TECHNIQUE: PET scanning with CT attenuation correction was performed from the base of the brain to the proximal thighs following the intravenous administration of 10.5 millicuries [id number]. COMPARISON: PET/CT dated February 03, 2019 and a CTA of the thorax dated March 02, 2019. CT [facility] from November 16, 2018 was also reviewed. FINDINGS: Biodistribution:The biodistribution for the exam appears acceptable. Head and neck: There is appropriate background activity within the brain. No hypermetabolic lymphaden opathy or masses identified. There is a small nodular, nonhypermetabolic 1 cm focus within the soft tissues just cephalad to the l eft false vocal cords that has been stable and suspicious for a tiny small polyp or small fibrotic nodule. Thorax: No hypermetabolic pulmonary lesion, pleural effusion or lymphadenopathy is present. The subca rinal lymph node is relatively stable in size measuring 1.6 cm with no associated hypermetabolic uptake. Peak SUV values associated is 1.12. There is a 9 mm pulmonary nodule in the right lower lobe without associated hypermetabolic uptake that was present on the CT examination the chest dated November 16, 2018. There are small bilateral pleural effusions and a small pericardial effusion. There ar e calcified granuloma within the left lower lobe and calcified lymph nodes within the mediastinum. Abdomen and pelvis: There is expected background activity within the GI and systems. No hypermetab olic mass, lymphadenopathy or ascites is present. The nodular grouping of lymph nodes within the central mesentery is stable without associated hyperme tabolic uptake. Peak SUV value associated with this nodular grouping within the central mesentery is 1.16. There is a stable hepatic cyst and cholelithiasis. Osseous structures and skin: No hypermetabolic skin or osseous lesion is identified. IMPRESSION: 1. No residual hypermetabolic lymphadenopathy demonstrated. The previously described enlarged subcari nal lymph node and enlarged lymph nodes within the central mesentery demonstrate no associated hypermetabolic activity and are stable to the prior PET/CT evaluation. 2. Stable small right lower lobe pulmonary nodule measures 9 mm. There is no associated hypermetaboli c activity associated with this pulmonary nodule; however, this pulmonary nodule is slightly below PET resolution threshold. Would recommend a follow-up CT of the thorax in October 2019 to verify stabili ty. 3. Small nonhypermetabolic nodular focus seen involving the left false vocal cord may reflect a small fibrotic nodule or tiny benign polyp. 4. Stable cholelithiasis and hepatic cyst. 5. Persistent bilateral pleural effusions and small pericardial effusion.
== END 2019-05-16 12:19 | disposition home or self-care (01) ==
LOC: PET 12:18
PROVIDERS: ATTEND Internal Medicine Hematology & Oncology
DX: C82.90 Follicular lymphoma, unspecified, unspecified site (principal); R59.0 Localized enlarged lymph nodes; R91.8 Other nonspecific abnormal finding of lung field; K80.20 Calculus of gallbladder without cholecystitis without obstruction; K76.89 Other specified diseases of liver; J90 Pleural effusion, not elsewhere classified; I31.3 Pericardial effusion (noninflammatory)
CPT/HCPCS: 78815; A9552

== ENCOUNTER 2019-11-16 09:00 | Outpatient (CLI) | payer MEDICARE ==
--- NOTE | 2019-11-16 11:06 | CT ---
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 Hypercal cemia. FINDINGS: Correlation is made with the PET scan of 05/16/2019. The subcarinal lymphadenopathy measuring up to 15 mm is stable. Pericardial effusion is again seen. Pleural effusions have improved with tiny residual effusions. There has been interval increase in s ize of the right lower lobe lung nodule noted on the PET scan currently measuring 14 mm. The calcifi ed granuloma in the left lung base is again seen. There is a stable cyst in the left lobe of the liver. Calcified gallstones and calcified granulomas in the spleen are again seen. The pancreas are normal. There is a 6 mm cyst in the left kidney. Th ere is a 12 mm cyst in the right kidney. Prominence of the adrenal glands is stable. No axillary, hilar, or abdominopelvic lymphadenopathy is seen. There are vascular calcifications wit hout evidence of aneurysmal dilatation of the thoracoabdominal aorta. A tiny amount of free fluid is seen in the pelvis. This was also noted on the previous study. There are degenerative changes in t he thoracolumbar spine. IMPRESSION: 1. Interval increase in size of the right lower lobe lung nodule since 05/16/2019. This should be ev aluated with a PET scan. 2. Pericardial effusion. 3. Tiny pleural effusions. 4. Stable subcarinal lymphadenopathy. 5. Cholelithiasis. 6. Renal cyst. POS: OFF
== END 2019-11-16 09:01 | disposition home or self-care (01) ==
LOC: BICCT 09:00
PROVIDERS: ATTEND Internal Medicine Hematology & Oncology
DX: C82.19 Follicular lymphoma grade II, extranodal and solid organ sites (principal); J91.0 Malignant pleural effusion; R91.1 Solitary pulmonary nodule; I31.3 Pericardial effusion (noninflammatory); R59.0 Localized enlarged lymph nodes; K80.20 Calculus of gallbladder without cholecystitis without obstruction; N28.1 Cyst of kidney, acquired
CPT/HCPCS: 36415; 71260; 74177; 80053; 82248; 83615; 84100; 84550; 85025

== ENCOUNTER 2019-11-24 09:45 | Outpatient (CLI) | payer MEDICARE, OTHER ==
--- NOTE | 2019-11-24 13:25 | PET ---
Nuclear medicine FDG PET/CT: (Positron emission tomography and computed tomography) DATE: 11/24/2019 HISTORY: 89-year-old female with "follicular lymphoma, grade 2, extranodal and solid" C 82.19. R 91.1 "increasing lung nodule.". COMPARISON: 05/16/2019 TECHNIQUE: IV injection of F-18 fluorodeoxyglucose (FDG) dose: 12.3 mCi. PET scan and attenuation correction CT performed from skull base to proximal thighs. FINDINGS: SUV (standard uptake values) numbers given are maximum SUVs. QCLR used. Nonhypermetabolic left laryngeal nodule unchanged. No suspicious hypermetabolic activity in neck. There is an approximately 11 x 6 mm noncalcified pulmonary nodule at the central base of right lower lobe which has not changed in size since 05/16/2019, allowing for slight differences in cursor placement (previous measurement given as 9 mm). It remains non-FDG avid, with current SUV of 1.0. In fact, it probably has not significant changed compared to a CT of 11/16/2018. However, the 14 mm nodule described on the report of the CT chest abdomen and pelvis of 11/16/2019, wa s a previously somewhat inconspicuous focal groundglass lesion located approximately 2 cm anterior to this old nodule as seen in retrospect on the attenuation correction, nondiagnostic CT images of . This has become more solid in appearance, is very irregular in shape, measuring approximately 21 x 13 mm on the current attenuation correction nondiagnostic CT images, and has curre nt SUV of 4.1. On 05/16/2019 PET scan, it was not hypermetabolic with SUV of 1.3. Because of its location at base of right lower lobe, this would be technically difficult for percutaneous biopsy. The previously demonstrated small bilateral right pleural effusion has resolved. Small left pleural effusion has become slightly smaller in volume. The small to moderate-sized pericardial effusion remains. The soft tissue material consistent with treated lymphoma, spread throughout the mediastinum, remains not hypermetabolic. A new finding of a small region of increased uptake with SUV of 5.4 at the superior medial corner of the spleen. Review of the CT of 11/16/2019 demonstrates a small 1.2 x 1.2 x 0.9 cm soft tissue density nodule external to the spleen, abutting the spleen. It would be somewhat unusual for a new ve ry small pathologic lymph node to be located in this area. This nodular density, in retrospect, is visualized in CT chest dating back to 01/03/2019, and has not grown. No other potential malignant neoplastic activity identified in rest of abdomen and pelvis. Distended gallbladder with multiple tiny gallstones. Cyst in left lobe of liver.. 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 The other possibility of organizing pneumonia is less likely. This would be difficult for CT-guided biopsy. 2) please note that this is adjacent to, and separate from, a probably benign pulmonary nodule very c lose to that, but stable. 3) new finding of a small focus of hypermetabolic activity just medial to the superomedial corner of the spleen. Etiology uncertain. Recommend continued follow-up with CT with contrast. 4) cholelithiasis 5) pericardial effusion
== END 2019-11-24 09:46 | disposition home or self-care (01) ==
LOC: PET 09:45
PROVIDERS: ATTEND Internal Medicine Hematology & Oncology
DX: C82.10 Follicular lymphoma grade II, unspecified site (principal); R91.8 Other nonspecific abnormal finding of lung field; K80.20 Calculus of gallbladder without cholecystitis without obstruction; I31.3 Pericardial effusion (noninflammatory)
CPT/HCPCS: 78815; A9552

== ENCOUNTER 2020-02-07 13:49 | Outpatient (CLI) | payer MEDICARE, OTHER ==
--- NOTE | 2020-02-07 17:34 | EKG ---
Test Reason : Blood Pressure : / mmHG Vent. Rate : 091 BPM Atrial Rate : 091 BPM P-R Int : 158 ms QRS Dur : 076 ms QT Int : 374 ms P-R-T Axes : 076 087 069 degrees QTc Int : 460 ms Sinus rhythm with occasional Premature ventricular complexes Possible Left atrial enlargement Borderline ECG No previous ECGs available Confirmed by DR. Margaret REYNOLDS ([id number]) on 02/07/2020 5:33:56 PM Referred By: MEHNAZ Confirmed By:DR. Margaret REYNOLDS
[2020-02-08 12:49] LABS: SARS-CoV-2 MS2 Positive; SARS-CoV-2 N Gene Negative; SARS-CoV-2 S Gene Negative; SARS-CoV-2 by NAA Not Detected (NotDetected); SARS-CoV-2 orf1ab Negative
== END 2020-02-07 13:50 | disposition home or self-care (01) ==
LOC: LABBT 13:49
PROVIDERS: ATTEND Plastic Surgery
DX: Z01.818 Encounter for other preprocedural examination (principal); C44.309 Unspecified malignant neoplasm of skin of other parts of face; Z20.828 Contact with and (suspected) exposure to other viral communicable diseases
CPT/HCPCS: 93005; U0003; 87635; 93010

== ENCOUNTER 2020-02-12 07:29 | Day surgery (SDC) | payer MEDICARE ==
[2020-02-08 15:17] VITALS: BMI 19.5
[2020-02-12] MEDS ORDERED: Chlorhexidine Gluconate 15 ML UDCUP SSP ONE (08:34)
[2020-02-12] MEDS ORDERED: Lidocaine 1% w/Epinephrine 1:100K 20 ML VIAL ONE (08:37)
[2020-02-12] MEDS ORDERED: Bupivacaine/Epinephrine 0.25% 30 ML VIAL ONE (08:57)
--- NOTE | 2020-02-12 12:27 | OP ---
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 POSTOPERATIVE DIAGNOSIS: Squamous cell carcinoma of chin. PROCEDURES PERFORMED: 1. Wide excision of squamous cell carcinoma of chin (4.8 cm including adequate margins). 2. Bilateral rotation advancement flaps of the chin (28 cm2). DESCRIPTION OF PROCEDURE: Following induction of adequate anesthesia, the patient was prepped and draped in usual sterile fashion in supine position. Her previous margins were positive from 12 o'clock to 3 o'clock to 6 o'clock at the levels. She was also noted to clinically have significant keratinization of the tissue. This was widely excised. Grossly, all the tumor was excised. In several areas along the 3 o'clock and 6 o'clock, small tissue samples were taken to check the margins. All these came back as negative. The patient will still need postoperative radiation due to perineural invasion as well as depth of invasion. The defect could not be closed primarily, so bilateral rotation advancement flaps were designed sulcus. The flaps were elevated in a deep plane and then rotated into place. The rotation was secured with combination of 3-0 PDS suture and 5-0 Monocryl suture. Skin edges were closed with 4-0 Monocryl suture. All so were copiously irrigated and inspected for meticulous hemostasis prior to closure. Job ID: [id number]
[2020-02-12] MEDS ORDERED: PROPOFOL 200 MG/20 ML VIAL ONE (13:51)
== END 2020-02-12 11:10 | disposition home or self-care (01) ==
LOC: SDC 07:29
PROVIDERS: ATTEND Plastic Surgery
PROC: 0HB1XZZ Excision of Face Skin, External Approach (ICD-10-PCS; principal; 2020-02-12)
DX: C44.329 Squamous cell carcinoma of skin of other parts of face (principal); Z79.899 Other long term (current) drug therapy
CPT/HCPCS: 88305; 88331; J0690; J2704

== ENCOUNTER 2020-02-16 09:22 | Outpatient (CLI) | payer MEDICARE, OTHER ==
--- NOTE | 2020-02-16 12:33 | CT ---
CT CHEST WITH CONTRAST CLINICAL INDICATION: Follicular lymphoma history of pulmonary nodule COMPARISON: 11/16/2019 and PET/CT exam on 11/24/2019 FINDINGS: Aorta: Vascular calcifications are again seen in the thoracic aorta. Thoracic aorta is normal in familia karen. Lungs: Minimal emphysematous changes are again seen within the lungs. Subtle groundglass appearing op acity in the right lung apex is again seen and similar to prior studies. The irregular nodular density right lower lobe is again seen with areas of cavitation present. Larges t dimensions of this irregular density in axial dimensions are 2.3 cm x 1.3 cm not significantly changed in size. The more solid nodular component measures approximately 12 mm with previous measurem ent of 14 mm. There does appear to be slightly greater degree of cavitation of this irregular nodule compared to prior study. Additional closely adjacent right lower lobe pulmonary nodule which d oes not demonstrate FDG avidity is again seen measuring approximately 11 mm and stable in size. No new pulmonary nodule or mass is seen. A calcified granuloma is again seen in the left lower lobe. There are mild scattered chronic lung changes identified. Tiny left pleural effusion has resolved wit h persistent trace right pleural effusion present. Mediastinum: Calcified subcarinal lymph nodes are identified with enlarged subcarinal lymph node agai n seen measuring 14 mm in short axis dimension and stable in size. Slight haziness in a pretracheal location is again seen. No new enlarged mediastinal lymph nodes are seen. Small pericardial effusion is again seen and similar to prior exams. Thyroid gland: Subcentimeter hypodense nodule left lobe of thyroid gland is again seen and stable. Osseous structures: Degenerative changes are again seen in the spine with right convex curvature of t he thoracic spine. Chest wall: A right subclavian vein Mediport catheter remains in place. Upper abdomen: The previously seen large left hepatic lobe cyst is again noted. Calcified granulomata are seen in the spleen. Again noted is thickening of each adrenal gland which could be related to adrenal hyperplasia. IMPRESSION: 1. Irregular nodular density right lower lobe with associated cavitation. This has not significantly changed in size given differences in slice selection compared to study on 11/16/2019; although, there does appear to be slightly greater degree of cavitation within this nodular lesion. 2. Stable pulmonary nodule right lower lobe which is closely adjacent to the larger irregular nodular density. 3. Stable groundglass appearing density right lung apex which may be chronic lung change. 4. Mild emphysematous changes. 5. Pericardial effusion similar to prior study with trace right pleural effusion. 6. Stable mildly enlarged subcarinal lymph node with stable haziness in a left pretracheal location m easuring related to sequela mediastinal lymphadenopathy.
== END 2020-02-16 09:23 | disposition home or self-care (01) ==
LOC: BICCT 09:22
PROVIDERS: ATTEND Internal Medicine Hematology & Oncology
DX: C82.19 Follicular lymphoma grade II, extranodal and solid organ sites (principal); R91.1 Solitary pulmonary nodule; J90 Pleural effusion, not elsewhere classified; I31.3 Pericardial effusion (noninflammatory); R59.0 Localized enlarged lymph nodes; J98.4 Other disorders of lung
CPT/HCPCS: 71260; 82565

== ENCOUNTER 2020-06-18 08:13 | Outpatient (CLI) | payer MEDICARE, OTHER ==
--- NOTE | 2020-06-18 10:16 | CT ---
CT THORAX WITH CONTRAST CT ABDOMEN WITH CONTRAST CT PELVIS WITH CONTRAST: DATE: 06/18/2020 HISTORY: 89-year-old female with follicular lymphoma and lung cancer. Evaluate response to therapy. 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 FINDINGS: The cavitary lesion and the adjacent benign-appearing well-circumscribed pulmonary nodule, at the bas e of the right lower lobe, are now both obscured by moderately large consolidation with air bronchogram occupying the majority of the volume of the basilar segments of the right lower lobe. The consolidation highlights bullae at the anterior base of right lower lobe. New very small, partially loculated right pleural effusion. No left pleural effusion. Chronic appearing right upper lobe subpleural reticular densities are stable. No pulmonary edema or pneumothorax. Small-moderate pericardial effusion not significantly changed. Confluent small volume soft tissue attenuation material throughout much of the mediastinum again note d. This was not hypermetabolic on the PET scan. Coarse calcification within the subcarinal region again noted. Left lobe hepatic cyst unchanged. Calcified gallstones within distended gallbladder, unchanged since 11/24/2019. Moderately large volume of stool distending the rectum. Numerous sigmoid colonic diverticula without diverticulitis. No ascites, pneumoperitoneum, or small bowel dilation. Heavy atherosclerotic calcification of ectatic abdominal aorta and iliac arteries. A few tiny bilateral renal calculi. No hydronephrosis. Small right renal upper pole cyst, unchanged. No major pathology identified involving pancreas, adrenals, spleen, liver, or appendix. Decompressed urinary bladder. Very small amount of soft tissue density material abutting the medial aspect of the spleen, which was hypermetabolic on the PET scan, is unchanged. No lexx hepatis, retroperitoneal, mesenteric, or iliac chain suspicious lymphadenopathy. No overt evidence of destructive osseous lesion. IMPRESSION: 1) new confluent consolidation-infiltrate at base of right lower lobe, obscuring the previously descr ibed small cavitary lesion and adjacent benign pulmonary nodule. This is consistent with acute bacterial pneumonia. 2) new very small partially loculated right parapneumonic pleural effusion. 3) no other significant interval change. 4) pericardial effusion 5) cholelithiasis 6) small amount of soft tissue density material abutting the spleen, which was FDG avid, is unchanged .
[2020-06-18] MEDS ORDERED: Iopamidol-370 76% 500 ML 1 ML ONE (10:24)
== END 2020-06-18 08:14 | disposition home or self-care (01) ==
LOC: BICCT 08:13
PROVIDERS: ATTEND Internal Medicine Hematology & Oncology
DX: C82.19 Follicular lymphoma grade II, extranodal and solid organ sites (principal); R91.1 Solitary pulmonary nodule; J91.0 Malignant pleural effusion; E83.52 Hypercalcemia; K80.20 Calculus of gallbladder without cholecystitis without obstruction; I31.3 Pericardial effusion (noninflammatory); M79.89 Other specified soft tissue disorders
CPT/HCPCS: 71260; 74177; 82565; Q9967